=== PATIENT | male | born 1940 | race Caucasian/White ===

== ENCOUNTER → 2016-08-09 | Day surgery (SDC) | payer OTHER ==
[2016-08-03 09:17] VITALS: BMI 34.0
[~2016-08-09] VITALS: Ht 167.6 cm; Wt 95.5 kg
[~2016-08-09] MED LIST: AMOX500C3 PO; ASPI1TAB83 PO; ATOR-22 PO; CLOP1TAB15 PO; DPH/ PO; FERR325T51 PO; FURO-85 PO; GLIP-172 PO; HYDR-3983 PO; LEVO125T5 PO; LIDOCAINE HCL 2% 2 ML VIAL (20MG/ML) ONE; LISI-729 PO; METF-383 PO; METO25TA56 PO; MULTTAB58 PO; NTRGSL/4 UT; PRLSR20 PO; PROPOFOL IV EMULSION 10 MG/ML 20 ML VIAL IV ONE; SITA100T3 PO; SODIUM CHLORIDE 0.9% 500ML 500 ML IV ONE; TAMS0.4C38 PO; ZNF/4 PO
[2016-08-09 08:48] VITALS: Ht 167.6 cm; Wt 95.5 kg
--- NOTE | 2016-08-09 09:24 | Endo History and Physical ---
History & Physical Date of Service: Aug 09, 2016. Chief Complaint: ESOPHAGEAL VARICES Referring Physician: DR SHANIQUE MELO History of Present Illness Hx of cirrhosis/ varices screening. Past Medical History Diabetes, Arthritis, Reflux, High Cholesterol, CABG, Hypertension, Thyroid Disease, [place] Past Surgical History Hx Cardiac Surgery: Yes (HEART CATHS, STENT X1; CABG X4 VESSELS) Hx Internal Defibrillator: No Hx Pacemaker: No Hx Abdominal Surgery: Yes (RUPTURED HERNIA REPAIR) Hx of Implantable Prosthesis: No Hx Post-Op Nausea and Vomiting: No Hx Cancer Surgery: No Hx Thoracic Surgery: No Hx Orthopedic: Yes (BACK SURGERY X4, LT TSA, LT RAFAELA, LT KNEE X3, LT/RT CTR) Hx Urinary Tract Surgery: Yes (KIDNEY STONE BASKET RETRIEVAL X2, KIDNEY STONE REMOVAL) Family History Colon CA Social History Smoking Status: Never Smoker Hx Substance Use: No Hx Alcohol Use: No Allergies Coded Allergies: Iodine (Verified Allergy, Severe, IVP DYE -- ANAPHYLAXIS, 08/03/16) Patient almost . 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 DONE Aspirin 81 Mg Tab 2 Tab PO QAM 04/28/15 Reported Iron Supplement (Ferrous Sulfate) 325 Mg Tab 1 Tab PO BID 04/28/15 Reported Nitrostat (Nitroglycerin) 0.4 Mg Tab 0.4 Mg UT PRN 04/28/15 Reported Levothyroxine Sodium 125 Mcg Tab 1 Tab PO QAM 04/28/15 Reported Tizanidine HCl (Tizanidine) 4 Mg Tab 4 Mg PO QAM 01/27/15 Reported Lopressor (Metoprolol Tartrate) 25 Mg Tab 25 Mg PO BID 01/27/15 Reported Januvia (Sitagliptin Phosphate) 100 Mg Tab 100 Mg PO NOON 01/27/15 Reported Flomax (Tamsulosin Hcl) 0.4 Mg Cap 0.4 Mg PO HS 01/27/15 Reported Glucophage (Metformin Hcl) 850 Mg Tab 850 Mg PO TID 01/27/15 Reported Prilosec (Omeprazole) 20 Mg Capcr 2 Tabs PO QAM 01/27/15 Reported Lasix (Furosemide) 20 Mg Tab 20 Mg PO QAM 01/27/15 Reported Glipizide Xl (Glipizide) 2.5 Mg Tab 2.5 Mg PO NOON 09/06/12 Reported one pill by mouth 30 minues before a meaL Lipitor (Atorvastatin Calcium) 20 Mg Tab 20 Mg PO QPM 09/06/12 Reported Vital Signs Weight (Kilograms): 95.45 Height (Feet): 5 Height (Inches): 6 Date Time Temp Pulse Resp B/P Pulse Ox O2 Delivery O2 Flow Rate FiO2 08/09/16 08:46 36.6 78 24 140/84 97 Room Air Physical Exam General Appearance: no apparent distress Respiratory/Chest: Auscultation: breath sounds normal Cardiovascular: Heart Auscultation: RRR Abdomen: Inspection & Palpation: soft Liver: non-tender Assessment and Plan stable for EGD
--- NOTE | 2016-08-09 09:54 | GI REPORT ---
Procedure Date: 08/09/2016 9:06 AM Procedure: Upper GI endoscopy Indications: Cirrhosis rule out esophageal varices Medicines: See the Anesthesia note for documentation of the administered medications Complications: No immediate complications. Estimated Blood Loss: Estimated blood loss: none. Procedure: Pre-Anesthesia Assessment: - Prior to the procedure, a History and Physical was performed, and patient medications, allergies and sensitivities were reviewed. The patient's tolerance of previous anesthesia was reviewed. - The risks and benefits of the procedure and the sedation options and risks were discussed with the patient. All questions were answered and informed consent was obtained. - Patient identification and proposed procedure were verified prior to the procedure by the physician and the nurse. The procedure was verified in the pre-procedure area. - Pre-procedure physical examination revealed no contraindications to sedation. - After reviewing the risks and benefits, the patient was deemed in satisfactory condition to undergo the procedure. After obtaining informed consent, the endoscope was passed under direct vision. Throughout the procedure, the patient's blood pressure, pulse, and oxygen saturations were monitored continuously. The Scope was introduced through the mouth, and advanced to the third part of duodenum. The upper GI endoscopy was accomplished without difficulty. The patient tolerated the procedure well. Computer issues prevented picture capture. Findings: Grade I varices were found in the lower third of the esophagus. Portal hypertensive gastropathy was found in the gastric antrum. The examined duodenum was normal. The cardia and gastric fundus were normal on retroflexion. Impression: - Grade I esophageal varices. - Portal hypertensive gastropathy. - Normal examined duodenum. - No specimens collected. Recommendation: - Repeat the upper endoscopy in 1 year for surveillance. - Discharge patient to home. John Yanez M.D. John Yanez MD 08/09/2016 9:53:26 AM This report has been signed electronically. Note Initiated On: 08/09/2016 9:06 AM I attest to the content of the Intraoperative Record and orders documented therein, exceptions below
--- NOTE | 2016-08-09 09:55 | Discharge Instructions ---
Endoscopy Patient Instructions Date / Procedure(s) Performed Aug 09, 2016. EGD Allergy Information Coded Allergies: Iodine (Verified Allergy, Severe, IVP DYE -- ANAPHYLAXIS, 08/03/16) Patient almost . Discharge Date / Findings Aug 09, 2016. grade I varices only Medication Instructions Stopped Medication(s): GLUCOPHAGE LAST DOSE 08/06/16 Provider Instructions Activity Restrictions - No exercising or heavy lifting for 24 hours. - Do not drink alcohol the day of the procedure. - Do not drive a car or operate machinery until the day after the procedure. - Do not make any important decisions or sign important papers in 24 hours after the procedure. Following Day: - Return to full activity which may include returning to work/school. Diet Start your diet with liquids and light foods (jello, soup, juice, toast). Then eat your usual diet if not nauseated. Treatment For Common After Affects For mild abdominal pain, bloating, or excessive gas: - Rest - Eat lightly - Lie on right side Follow-Up Information Follow-up with DR SHANIQUE MELO as scheduled Anesthesia Information What You Should Know You have had a procedure that required some medicine to reduce anxiety and discomfort. This treatment is called moderate sedation. After receiving the treatment, you may be sleepy, but you will be able to breathe on your own. The effects of the treatment may last for several hours. Follow these instructions along with Activity/Diet recommendations noted above: * Do NOT do anything where dizziness or clumsiness would be dangerous. * Rest quietly at home today, then you can be up and about tomorrow. * Have a responsible person stay with you the rest of today. * You may have had an I.V. today. If so, you may take the dressing off later today. Recommendations Call your doctor if: * Trouble breathing * Continuous vomiting for more than 24 hours * Temperature above 101 degrees * Severe abdominal pain or bloating * Pain not relieved by pain medicine ordered * There is increased drainage or redness from any incision * A large amount of rectal bleeding greater than 2-3 tablespoons. (If you had a polyp/s removed or have hemorrhoids, a small amount of blood - from the rectum is to be expected.) * You have any unanswered questions or concerns. IN THE EVENT OF A SERIOUS EMERGENCY, GO TO THE NEAREST EMERGENCY ROOM Your discharge instructions were prepared by provider John Yanez. Patient Instructions Signature Page Kenton Ariel Trevizo Patient (or Guardian) Signature/Date: I have read and understand the instructions given to me by my caregivers. Caregiver/RN/Doctor Signature/Date: The above-named patient and/or guardian has received patient instructions on this date. + Original Patient Signature Page (only) stays with chart. Please make copy for patient.
--- NOTE | 2016-08-09 10:10 | Anesthesiology Progress Note ---
Anesthesia Post Op Note Date & Time Aug 09, 2016 at 10:09 Vital Signs Pain Intensity: 0 Vital Signs Past 12 Hours Date Time Temp Pulse Resp B/P Pulse Ox O2 Delivery O2 Flow Rate FiO2 08/09/16 09:47 78 16 92/53 93 Room Air 08/09/16 08:46 36.6 78 24 140/84 97 Room Air Notes Mental Status: alert / awake / arousable, participated in evaluation Pt Amnestic to Procedure: Yes Nausea / Vomiting: adequately controlled Pain: adequately controlled Airway Patency, RR, SpO2: stable & adequate BP & HR: stable & adequate Hydration State: stable & adequate Anesthetic Complications: no major complications apparent
[2016-08-09 10:18] VITALS: BP 118/73; PULSE 76; O2SAT 95
== END | disposition home or self-care (01) ==
LOC: C.GI 08:11
PROVIDERS: ATTEND Internal Medicine Gastroenterology
DX: I85.00 Esophageal varices without bleeding (principal); K74.60 Unspecified cirrhosis of liver; K31.89 Other diseases of stomach and duodenum; E11.9 Type 2 diabetes mellitus without complications; K21.9 Gastro-esophageal reflux disease without esophagitis; E78.00 Pure hypercholesterolemia, unspecified; Z95.5 Presence of coronary angioplasty implant and graft; E07.9 Disorder of thyroid, unspecified; I25.2 Old myocardial infarction; M19.90 Unspecified osteoarthritis, unspecified site; Z87.442 Personal history of urinary calculi; Z80.0 Family history of malignant neoplasm of digestive organs; Z91.041 Radiographic dye allergy status; Z79.82 Long term (current) use of aspirin; Z79.84 Long term (current) use of oral hypoglycemic drugs; I11.9 Hypertensive heart disease without heart failure; D64.9 Anemia, unspecified; N40.0 Benign prostatic hyperplasia without lower urinary tract symptoms

== ENCOUNTER → 2016-08-17 | Outpatient (CLI) | payer OTHER ==
[~2016-08-17] MED LIST changes: -LIDOCAINE HCL 2% 2 ML VIAL (20MG/ML) ONE; -PROPOFOL IV EMULSION 10 MG/ML 20 ML VIAL IV ONE; -SODIUM CHLORIDE 0.9% 500ML 500 ML IV ONE
--- NOTE | 2016-08-17 12:25 | DIAGNOSTIC IMAGING REPORT ---
VIDEO SWALLOW STUDY CLINICAL HISTORY: Choking. Dysphagia. COMPARISON STUDY: No priors. Fluoroscopy time: 2.2 minutes. FINDINGS: Fluoroscopic guidance was provided to the department of speech pathology in performing a video swallow study. The patient consumed barium-impregnated pudding, nectar thick liquids, cracker with paste, and thin barium while the swallowing mechanism was observed in real-time. No penetration or aspiration was seen with any of the sampled textures. Midline sternotomy wires are noted. Spondylotic change is observed in the cervical spine. IMPRESSION: 1. No penetration or aspiration was seen with any of the sampled textures. 2. See dedicated speech pathology report for detailed findings and recommendations. Dictated: 08/17/2016 11:11 AM Transcribed: 08/17/2016 12:24 PM [facility] Electronically signed by: Keith Dolan M.D. 08/17/2016 12:27 PM Dictated Date/Time: 08/17/2016 11:11 AM
--- NOTE | 2016-08-17 13:37 | SWALLOWING EVALUATION ---
HISTORY: This 75 year old man was referred for a video swallow study at [facility] in order to rule out aspiration and identify the safest consistencies for optimal oral intake. He reports episodes of severe coughing where he will turn bright red/purple. He states this happens randomly and not necessarily while he is eating. He feels as though his throat becomes tight as if it is a spasm, and during that time he cannot breathe. PMH is significant for: Diabetes type 2, GERD, CABG, [place], HTN, and cirrhosis. He participated in an EGD on 08/09/16 which revealed varices and portal hypertensive gastropathy. Current diet is regular. PROCEDURE: The patient was seen in the Radiology Department of [facility] for the VFSS. Cursory examination of the oral cavity revealed upper dentures that fit well, and natural lowers in good condition. Movement of the articulators was wnl. The patient stood for the procedure and was viewed in both the Anterior-Posterior (A-P) and Lateral planes. Volitional phonation exercises completed in the A-P plane revealed bilateral vocal fold movement and vocal intensity was judged to be wnl. In the lateral plane, the patient was given the following boluses: 1 tsp. thin liquid barium x 2, single swallow thin liquid barium self-presented from a cup x2, serial swallows of thin liquid barium self-presented with a straw, 1 tsp. nectar-thick liquid barium, single swallow nectar-thick liquid barium self-presented from a cup, 1 tsp. barium pudding, and 1 club cracker coated with barium pudding. RESULTS: Oral Stage: Lip closure was adequate. The patient was able to maintain a cohesive liquid bolus upon command during the liquid bolus hold task. Mastication was timely and efficient. Lingual motion for bolus transport was mildly slow. There was retention lining the tongue after the swallow. The initiation of the pharyngeal swallow was delayed, and triggered when the bolus head reached the pyriforms. Pharyngeal Stage: Soft palate elevation was complete. Laryngeal elevation revealed complete superior movement of the thyroid cartilage with complete approximation of the arytenoids to the epiglottic base. Anterior hyoid excursion and epiglottic deflection were complete. Laryngeal vestibular closure was complete with no air or contrast located in the vestibule at the height of the swallow. The pharyngeal stripping wave was present and complete. Pharyngeal contraction was also complete. The opening to the pharyngoesophageal segment (PES) was complete with distention and duration of the opening, no bolus flow obstruction evidenced. Tongue base retraction was mildly reduced, with a trace column of contrast being located between the tongue base and pharyngeal wall during the swallow. There was pharyngeal retention located along the tongue base and valleculae after the swallow. There was no evidence of laryngeal penetration or aspiration during this study. The patient presented with good sensation to the pharyngeal retention and independently generated a second swallow that was effective to clear. Esophageal stage: There was complete esophageal clearance. Cervical osteophytes were noted in the upper esophagus that did not significant impact bolus flow. SUMMARY/RECOMMENDATIONS: This patient presents with normal layne-pharyngeal swallowing mechanics. The following is recommended: 1. Regular consistency diet 2. Aspiration precautions, Straws OK. Fully upright for meals. 3. Consider participation in an ENT consultation due to patient c/o suspected laryngospasms. Results and recommendations were given to the patient and his spouse (with patient's permission) immediately following the study with verbal understanding. They reported they have not yet had an evaluation by an communications director but are receptive to this as the patient is describing suspected laryngospasms. Thank you for referral of this patient. Please contact me at if any additional information is needed.
== END | disposition home or self-care (01) ==
LOC: C.RAD 10:09
PROVIDERS: ATTEND Family Medicine
DX: R13.19 Other dysphagia (principal); T17.308A Unspecified foreign body in larynx causing other injury, initial encounter; X58.XXXA Exposure to other specified factors, initial encounter

== ENCOUNTER 2023-03-01 11:47 | Inpatient (IN) ==
[2023-03-01] MEDS ORDERED: CALCIUM GLUCONATE 10% 1,000 MG in SODIUM CHLOR 0.9% MINI-B 50 ML IV ONE (12:25)
[2023-03-01] MEDS ORDERED: STAT IV/IM STA (12:25)
[2023-03-01 12:31] LABS: Hemoglobin 8.4 g/dl (14.0-18.0); Mean Corpuscular Hemoglobin 29.2 pg (25.0-34.0); Mean Corpuscular Hgb Conc 32.3 g/dL (32.0-36.0); Mean Corpuscular Volume 90.3 fL (80.0-100.0); Mean Platelet Volume 9.5 fL (9.4-12.4); Platelet Count 334 K/uL (130-400); RDW Coefficient of Variation 17.9 % (11.5-14.5); RDW Standard Deviation 58.5 fL (36.4-46.3); Red Blood Count 2.88 M/uL (4.70-6.10); White Blood Count 9.49 K/ul (4.8-10.8)
--- NOTE | 2023-03-01 12:48 | Emergency Department Note ---
Impression & Plan Acute hyperkalemia, Cirrhosis, Acute kidney failure ED Provider Note NAME: REECE CHAVIS AGE: 82 SEX: M : 1940 ARRIVES VIA: Walk-In INFORMANT: Patient, ED PROVIDER(S): Shawna Wadsworth MD CHIEF COMPLAINT: Abnormal labs HPI: This is a 82-year-old male history of lymphoma, diabetes, cirrhosis of the liver presenting for abnormal blood work in the outpatient setting. Patient reportedly had bladder and yesterday which showed a hemoglobin of 7.6, creatinine of 2.6, potassium is 6.5 and a sodium of 123. He was sent in for this as well as his chronic symptoms of weakness, abdominal pain. states that patient has no appetite is not been eating more than 100 etta/day. He notes that he has been swelling up in his abdomen as well as lower extremities bilaterally. He is unsure why he feels unwell. He is not on active chemotherapy for his lymphoma. He states he received a antibody infusion about 1 year ago for his lymphoma. ROS: See above HPI for pertinent positives & negatives. A total of 10 systems reviewed and were otherwise negative. PAST MEDICAL HISTORY: See Below PAST SURGICAL HISTORY: See Below FAMILY HISTORY: See Below SOCIAL HISTORY: See Below HOME MEDICATIONS: See Below ALLERGIES: See Below VITALS: See Below PHYSICAL EXAMINATION: General: Chronically ill-appearing, uncomfortable, fatigued Head: Normocephalic and atraumatic Eyes: Normal inspection, extraocular muscles intact Ear, nose, throat: Normal external exam Neck: Normal range of motion Respiratory: lungs clear to auscultation bilaterally Cardiovascular: Regular rate/rhythm, no murmur GI: Distended, no acute tenderness to palpation Extremities: nontender, moves all extremities Neuro: The patient awake and alert, appropriately conversive, no focal deficits, symmetric faces Skin: Warm, dry, and intact MEDICAL DECISION MAKING: This is an 82-year-old male with history of lymphoma, diabetes and cirrhosis presenting for abnormal blood work. External records reviewed, lab work done on 02/28, 1 day ago, by patient's primary care physician does not did reveal potassium is 6.5, sodium 123, CO2 of 17, anion gap of 13, creatinine of 2.6, BUN of 44 and hemoglobin of 7.6. - Chest Xray independently interpreted by me showing cardiomegaly, no pneumothorax, focal opacity. We will give calcium gluconate for hyperkalemia at this time ECG independently interpreted by me with sinus tachycardia, rate of 107, left axis deviation, normal MO, normal QRS, normal QTc, no ST segment elevations consistent with STEMI criteria - Discussed case with Dr. Valencia, she requested a diagnostic paracentesis. This is appropriate. - Consent obtained/signed for diagnostic paracentesis. Please see end of note for procedure note. Triage Nursing notes reviewed. Prior medical records reviewed Vital Signs: reviewed and remarkable for no significant abnormalities Differential diagnosis: Hepatorenal syndrome, kidney failure, hyperkalemia, sepsis, ER treatment provided: See below Diagnostics interpreted by me: ECG: ECG independently interpreted by me with sinus, rate of 110, left axis deviation, normal MO, normal QRS, normal QTc, no ST segment elevations consistent with STEMI criteria Cardiac Monitoring: An order was placed for continuous cardiac monitoring. The monitor shows a rate of 110 with sinus rhythm Laboratory studies: As stated above and show below. Imaging studies: See below. Radiographic imaging was reviewed by myself Consultation(s): None Past Med/Surg History Medical History (Updated 03/01/23 @ 19:17 by Shawna Wadsworth MD) Chronic systolic heart failure PAF (paroxysmal atrial fibrillation) Marginal zone lymphoma dx 12/2020, no chemo or radiation, only gets infusion of antibodies and plasma, and iron infusion weekly, [facility] oncology Congestive heart failure Heart [facility] 1996, [facility], had cath no stents>pursued medication route vs. bypass route 05/2020, [facility]. heart cath, no stents at that time. "weak muscle on the bottom right side" follows with Dr Lewis ([facility] Cardiology) Osteoarthritis Chronic back pain Kidney stones hx Cirrhosis Hypothyroidism Diabetes mellitus, type 2 On anticoagulant therapy eliquis daily>as of 12/2022, medication on hold Hypertension Hyperlipidemia Myocardial Infarction x3--1988/1996/--follows with Júnior Lewis NP @ [facility] 1996, [facility], had cath no stents>pursued medication route vs. bypass route 2003-[facility] for cardiac cath, no stents 2005[facility] for cardiac [facility], x2 stents Surgical History History of surgical removal of ganglion cyst left hand Status post trigger finger release x2--1 on each hand History of carpal tunnel release of both wrists History of thoracic spinal fusion x2 History of lumbar spinal fusion x2 History of fusion of cervical spine normal ROM History of left shoulder replacement History of total left hip replacement History of arthroscopy of left knee x3 History of nephrolithotomy with removal of calculi x2 History of cystoscopy x2 Hx of transurethral resection of prostate Status post biopsy of kidney normal History of right inguinal hernia repair History of colonoscopy History of esophagogastroduodenoscopy (EGD) History of cholecystectomy History of tooth extraction all top teeth removed History of wisdom tooth extraction History of heart artery stent x2 stents placed 2005 @ [facility] History of cardiac cath 1996, no stents; x2; 2003 (no stents); 2005-2 stents; 05/2020-no stents>all done [facility] History of quadruple bypass 2003 @ [facility], "felt off" had cath>had bypass Family History Mother Family history of diabetes mellitus Father Family history of diabetes mellitus Brother Family history of diabetes mellitus Family hx of colon cancer Family hx colonic polyps Sister Family history of diabetes mellitus Brother Family history of diabetes mellitus Family hx of colon cancer Family hx colonic polyps Brother Family history of diabetes mellitus Sister Family history of diabetes mellitus Sister Family history of diabetes mellitus Sister Family history of diabetes mellitus Grandfather (Maternal) Family history of diabetes mellitus Grandfather (Paternal) Family history of diabetes mellitus Grandmother (Paternal) Family history of diabetes mellitus Grandmother (Maternal) Family history of diabetes mellitus Other No family history of adverse response to anesthesia Social History Smoking Status: Never smoker Second Hand Exposure: No; Do You Dip or Chew Tobacco: No; Hx Alcohol Use: No Hx Substance Use: No Preferred Language: Tuvaluan Communication Ability: Effective Office Assistance Required: No Beliefs That Will Affect Care: None Current Living Situation: Spouse Other Information That Helps Us Care for You: No Feels Safe at Home: Yes Safety Concerns: Feels Safe At This Time Assistive Devices: Cane and Denture - Upper Allergies Allergies Allergy/AdvReac Type Severity Reaction Status Date / Time Iodinated Contrast Media Allergy Severe IVP DYE = Verified 03/01/23 15:34 ANAPHYLAXIS lisinopril AdvReac Cough Verified 03/01/23 15:34 Home Meds Home Medications Medication Instructions Recorded Confirmed acetaminophen 325 mg tablet 325 mg PO Q6H PRN Pain 02/02/19 03/01/23 (Tylenol) amoxicillin 500 mg tablet 2,000 mg PO UD PRN prior to dental 02/02/19 03/01/23 procedures apixaban 5 mg tablet (Eliquis) 2.5 mg PO BID 02/02/19 03/01/23 aspirin 81 mg tablet,delayed 81 mg PO QAM 02/02/19 03/01/23 release (Sharita Low Dose Aspirin) atorvastatin 80 mg tablet 80 mg PO QPM 02/02/19 03/01/23 diphenoxylate-atropine 2.5 1 tab PO QID PRN Diarrhea 02/02/19 03/01/23 mg-0.025 mg tablet (Lomotil) ferrous sulfate 325 mg (65 mg 325 mg PO BID 02/02/19 03/01/23 iron) tablet,delayed release furosemide 20 mg tablet 20 mg PO QAM 02/02/19 03/01/23 hydrocodone 7.5 mg-acetaminophen 1 tab PO Q8H PRN Pain 02/02/19 03/01/23 325 mg tablet magnesium oxide 800 mg PO BID 02/02/19 03/01/23 metformin 850 mg tablet 850 mg PO BID 02/02/19 03/01/23 metoprolol succinate 100 mg 100 mg PO QAM 02/02/19 03/01/23 tablet,extended release 24 hr hbscisdg-baztdgwm-lxvhs acid 400 1 tab PO QPM 02/02/19 03/01/23 mcg-vit K 20 mcg-lycop 300 mcg tablet (One-A-Day Men's Multivitamin) nitroglycerin 0.4 mg sublingual 0.4 mg sublingual UD PRN Angina 02/02/19 03/01/23 tablet tamsulosin 0.4 mg capsule 0.4 mg PO HS 02/02/19 03/01/23 triamcinolone acetonide 0.1 % 1 applic topical BID PRN Rash 02/02/19 03/01/23 topical cream famotidine 20 mg tablet (Pepcid) 20 mg PO BID 09/23/20 03/01/23 ondansetron 8 mg disintegrating 8 mg PO Q12H PRN Nausea 02/19/21 03/01/23 tablet isosorbide mononitrate 60 mg 60 mg PO QAM 11/25/22 03/01/23 tablet,extended release 24 hr albuterol sulfate 90 mcg/actuation 2 puff inhalation TID 03/01/23 03/01/23 aerosol inhaler (Proventil HFA) glipizide 10 mg tablet, extended 20 mg PO DAILY 03/01/23 03/01/23 release 24 hr levothyroxine 200 mcg tablet 200 mcg PO QAM 03/01/23 03/01/23 losartan 25 mg tablet 25 mg PO DAILY 03/01/23 03/01/23 metoclopramide HCl 10 mg tablet 10 mg PO DAILY 03/01/23 03/01/23 pantoprazole 40 mg tablet,delayed 40 mg PO QAM 03/01/23 03/01/23 release semaglutide 1 mg/dose (4 mg/3 mL) 1 mg subcut .Q WED 03/01/23 03/01/23 subcutaneous pen injector (Ozempic) spironolactone 50 mg tablet 50 mg PO QAM 03/01/23 03/01/23 torsemide 20 mg tablet 40 mg PO DAILY 03/01/23 03/01/23 Results & Data (ED) Vital Signs Vital Signs - 24 hr 03/01/23 11:52 03/01/23 12:21 03/01/23 12:23 Temperature 36.5 C Temperature Source Temporal Artery Scan Pulse Rate 108 H 0 L Pulse Rate from SpO2 Sensor Pulse Rhythm Regular Respiratory Rate 18 14 Respiratory Effort / Characteristics Non-Labored Spontaneous Respiratory Depth Normal Blood Pressure 91/61 L 108/72 Blood Pressure Mean 71 90 Pulse Oximetry 97 Oxygen Delivery Method Room Air Sepsis Recent Fever Within 48 Hours No Sepsis New/Unexplained Change in Mental Status No Sepsis Action Taken by Nursing No Action Required 03/01/23 12:23 03/01/23 12:30 03/01/23 12:30 Temperature Temperature Source Pulse Rate 101 H 105 H Pulse Rate from SpO2 Sensor 101 H Pulse Rhythm Respiratory Rate 18 Respiratory Effort / Characteristics Respiratory Depth Blood Pressure 107/70 Blood Pressure Mean 85 Pulse Oximetry 96 Oxygen Delivery Method Sepsis Recent Fever Within 48 Hours Sepsis New/Unexplained Change in Mental Status Sepsis Action Taken by Nursing 03/01/23 12:30 03/01/23 12:45 03/01/23 13:00 Temperature Temperature Source Pulse Rate 104 H 103 H Pulse Rate from SpO2 Sensor 103 H 103 H Pulse Rhythm Respiratory Rate 18 17 Respiratory Effort / Characteristics Respiratory Depth Blood Pressure 104/72 Blood Pressure Mean 78 Pulse Oximetry 97 96 Oxygen Delivery Method Sepsis Recent Fever Within 48 Hours Sepsis New/Unexplained Change in Mental Status Sepsis Action Taken by Nursing 03/01/23 13:00 03/01/23 13:15 03/01/23 13:30 Temperature Temperature Source Pulse Rate 100 H 102 H 105 H Pulse Rate from SpO2 Sensor 106 H 103 H 102 H Pulse Rhythm Respiratory Rate 16 20 21 Respiratory Effort / Characteristics Respiratory Depth Blood Pressure Blood Pressure Mean Pulse Oximetry 96 94 90 Oxygen Delivery Method Sepsis Recent Fever Within 48 Hours Sepsis New/Unexplained Change in Mental Status Sepsis Action Taken by Nursing 03/01/23 13:30 03/01/23 13:45 03/01/23 14:00 Temperature Temperature Source Pulse Rate 99 H 96 H Pulse Rate from SpO2 Sensor 98 H 96 H Pulse Rhythm Respiratory Rate 14 14 Respiratory Effort / Characteristics Respiratory Depth Blood Pressure 88/65 L Blood Pressure Mean 67 Pulse Oximetry 91 100 Oxygen Delivery Method Sepsis Recent Fever Within 48 Hours Sepsis New/Unexplained Change in Mental Status Sepsis Action Taken by Nursing 03/01/23 14:01 03/01/23 14:01 03/01/23 14:15 Temperature Temperature Source Pulse Rate 96 H 103 H Pulse Rate from SpO2 Sensor 97 H 98 H Pulse Rhythm Respiratory Rate 16 19 Respiratory Effort / Characteristics Respiratory Depth Blood Pressure 97/66 L Blood Pressure Mean 77 Pulse Oximetry 99 97 Oxygen Delivery Method Sepsis Recent Fever Within 48 Hours Sepsis New/Unexplained Change in Mental Status Sepsis Action Taken by Nursing 03/01/23 14:30 03/01/23 14:30 03/01/23 14:45 Temperature Temperature Source Pulse Rate 103 H 105 H Pulse Rate from SpO2 Sensor 101 H 105 H Pulse Rhythm Respiratory Rate 16 18 Respiratory Effort / Characteristics Respiratory Depth Blood Pressure 86/63 L Blood Pressure Mean 77 Pulse Oximetry 94 95 Oxygen Delivery Method Sepsis Recent Fever Within 48 Hours Sepsis New/Unexplained Change in Mental Status Sepsis Action Taken by Nursing 03/01/23 15:00 03/01/23 15:00 03/01/23 15:15 Temperature Temperature Source Pulse Rate 104 H 95 H Pulse Rate from SpO2 Sensor 104 H 89 Pulse Rhythm Respiratory Rate 20 16 Respiratory Effort / Characteristics Respiratory Depth Blood Pressure 88/65 L Blood Pressure Mean 73 Pulse Oximetry 98 97 Oxygen Delivery Method Sepsis Recent Fever Within 48 Hours Sepsis New/Unexplained Change in Mental Status Sepsis Action Taken by Nursing Laboratory Data 03/01/23 12:03 03/01/23 15:54 Lab Results 03/01/23 Range/Units 12:03 WBC 9.49 (4.8-10.8) K/ul RBC 2.88 L (4.70-6.10) M/uL Hgb 8.4 L (14.0-18.0) g/dl Hct 26.0 L (42.0-52.0) % MCV 90.3 (80.0-100.0) fL MCH 29.2 (25.0-34.0) pg MCHC 32.3 (32.0-36.0) g/dL RDW Std Deviation 58.5 H (36.4-46.3) fL RDW Coeff of Jaqueline 17.9 H (11.5-14.5) % Plt Count 334 (130-400) K/uL MPV 9.5 (9.4-12.4) fL PT 13.7 H (9.0-12.0) Seconds INR 1.3 H (0.9-1.1) APTT 31.8 H (21.0-31.0) Seconds PTT Ratio 1.1 Sodium 122 L (136-145) mmol/L Potassium 6.4 H* (3.5-5.1) mmol/L Chloride 94 L (98-107) mmol/L Carbon Dioxide 18 L (21-32) mmol/L Anion Gap 10 (3-11) BUN 46 H (6-23) mg/dl Creatinine 2.40 H (0.6-1.4) mg/dl Est Cr Clr Drug Dosing Not Reportable Est GFR ( Amer) 27.9 ml/min Est GFR (Non-Af Amer) 24.0 ml/min BUN/Creatinine Ratio 19.2 (10-20) Glucose 157 H (70-99(Fasting)) mg/dl Calcium 9.1 (8.6-10.3) mg/dl Total Bilirubin 0.5 (0.2-1.0) mg/dl AST 19 (13-39) U/L ALT 12 (7-52) U/L Alkaline Phosphatase 89 (34-104) U/L Troponin I High Sens 23.9 H (0-20) pg/ml Total Protein 6.2 (6.0-8.3) gm/dl Albumin 3.4 (3.4-5.0) gm/dl Globulin 2.8 (2.5-4.0) gm/dl Albumin/Globulin Ratio 1.2 (0.9-2) Blood Type O Positive Antibody Screen NEGATIVE Administered Medications Albumin Human (Albumin 25%) 25 gm in 100 mls @ 50 mls/hr IV Q8H ANGIE Stop: 03/03/23 12:29 Last Admin: 03/01/23 18:33 Dose: 50 mls/hr Documented By: KAYLYNN Sodium Zirconium Cyclosilicate (Sodium Zirconium Cyclosilicate 10 Gm Packet) 10 gm PO TID ANGIE Stop: 03/03/23 09:01 Last Admin: 03/01/23 13:09 Dose: 10 gm Documented By: JUDY Discontinued Medications Albuterol (Albuterol 0.5% Neb Soln 2.5 Mg/0.5 Ml Vial) 10 mg NEB NOW STA Stop: 03/01/23 12:58 Last Admin: 03/01/23 13:42 Dose: 10 mg Documented By: FRANC Dextrose (Dextrose 50% 50 Ml Syringe) 50 ml IV NOW STA Stop: 03/01/23 12:58 Last Admin: 03/01/23 13:09 Dose: 50 ml Documented By: JUDY Furosemide (Furosemide Inj 20 Mg/2 Ml Vial) 20 mg IV ONE ONE Stop: 03/01/23 17:39 Last Admin: 03/01/23 18:33 Dose: 20 mg Documented By: KAYLYNN Calcium Gluconate 1,000 mg/ (Sodium Chloride) 60 mls @ 240 mls/hr IV NOW ONE Stop: 03/01/23 12:39 Last Infusion: 03/01/23 13:15 Dose: Infused Documented By: Admin: 03/01/23 13:00 Dose: 240 mls/hr Documented By: JUDY Insulin Human Regular 10 units (/ Syringe) 9.9 mls @ 3 mls/sec IV ONE STA Stop: 03/01/23 12:58 Last Admin: 03/01/23 13:09 Dose: 3 mls/sec Documented By: JUDY Co-signed By: AM Insulin Human Regular (Novolin-R Insulin Per Unit Charge) Confirm Administered Dose 10 units .ROUTE .STK-MED ONE Stop: 03/01/23 13:08 Last Admin: 03/01/23 15:08 Dose: Not Given Documented By: DLN Imaging Data Radiologist's Impression: Chest X-Ray 03/01/23 12:59 XR chest 1V portable HISTORY: 82 years-old Male CHF acute shortness of breath COMPARISON: 01/27/2015 TECHNIQUE: AP view of the chest FINDINGS: Cardiac silhouette is enlarged. Median sternotomy. Mild subsegmental bibasilar atelectasis versus scarring. No pneumothorax, large pleural effusion or pulmonary edema. Mild blunting of the costophrenic angles. Left shoulder arthroplasty. Bones appear grossly intact. IMPRESSION: Cardiomegaly with mild bibasilar atelectasis and possible trace right pleural effusion. ACT 112: Negative or not required by law. The above report was generated using voice recognition software. It may contain grammatical, syntax or spelling errors. Electronically signed by: Tomasz Billingsley M.D. 03/01/2023 1:54 PM Discharge Plan Visit Data Chief Complaint: Referred by Doctor Stated Complaint: BLOOD INFUSION ED Provider: Shawna Wadsworth Discharge Problem: Acute hyperkalemia, Cirrhosis, Acute kidney failure Patient Disposition: Admitted As Inpatient Discharge Instructions Interventions: ED Discharge Assessment Last Done: 03/01/23 17:39 Procedures Paracentesis Time Out Performed: Yes Indication: possible spontaneous bacterial peritonitis Procedure: diagnostic paracentesis Location: RLQ Bedside Ultrasound Used: yes, real-time guidance Preparation: sterile prep and drape Amount of fluid obtained (mL): 60 Fluid: clear Post Procedure Exam: awake, alert Patient Tolerated Procedure: well Complications: none
[2023-03-01 12:53] LABS: INR 1.3 (0.9-1.1); Partial Thromboplastin Ratio 1.1; Partial Thromboplastin Time 31.8 Seconds (21.0-31.0); Prothrombin Time 13.7 Seconds (9.0-12.0)
[2023-03-01 12:57] LABS: Alanine Aminotransferase 12 U/L (7-52); Albumin Globulin Ratio 1.2 (0.9-2); Albumin Level 3.4 gm/dl (3.4-5.0); Alkaline Phosphatase 89 U/L (34-104); Anion Gap 10 (3-11); Aspartate Aminotransferase 19 U/L (13-39); BUN Creatinine Ratio 19.2 (10-20); Bilirubin,Total 0.5 mg/dl (0.2-1.0); Blood Urea Nitrogen 46 mg/dl (6-23); Calcium 9.1 mg/dl (8.6-10.3); Carbon Dioxide 18 mmol/L (21-32); Chloride 94 mmol/L (98-107); Est GFR (African American) 27.9 ml/min; Globulin 2.8 gm/dl (2.5-4.0); Glucose 157 mg/dl (70-99(Fasting)); Potassium 6.4 mmol/L (3.5-5.1); Sodium 122 mmol/L (136-145); Total Protein 6.2 gm/dl (6.0-8.3)
[2023-03-01] MEDS ORDERED: INSULIN HUMAN REGULAR PER UNIT 10 UNITS in SYRINGE 9.9 ML IV STA (12:57)
[2023-03-01] MEDS ORDERED: ALBUTEROL 0.5% NEB SOLN 2.5 MG/0.5 ML VIAL NEB STA (12:57)
[2023-03-01] MEDS ORDERED: DEXTROSE 50% 50 ML SYRINGE IV STA (12:57)
[2023-03-01] MEDS ORDERED: NovoLIN-R INSULIN PER UNIT CHARGE ONE (13:07)
[2023-03-01] MEDS: SODIUM ZIRCONIUM CYCLOSILICATE 10 GM PACKET PO SCH ×3 (13:09→23:17)
--- NOTE | 2023-03-01 13:10 | Electrocardiogram Report ---
Test Reason : Blood Pressure : / mmHG Vent. Rate : 107 BPM Atrial Rate : 107 BPM P-R Int : 184 ms QRS Dur : 090 ms QT Int : 338 ms P-R-T Axes : 061 -38 107 degrees QTc Int : 451 ms Sinus tachycardia Left axis deviation Inferior infarct , age undetermined Anterolateral infarct , age undetermined Abnormal ECG When compared with ECG of 25-MAY-2005 14:12, Criteria for Inferior infarct now present Criteria for Anterolateral infarct now present Confirmed by Ari Howell ([id number]) on 03/01/2023 1:09:49 PM Referred By: Herb Acevedo Confirmed By:Ari Howell
--- NOTE | 2023-03-01 13:56 | XRay Report ---
XR chest 1V portable HISTORY: 82 years-old Male CHF acute shortness of breath COMPARISON: 01/27/2015 TECHNIQUE: AP view of the chest FINDINGS: Cardiac silhouette is enlarged. Median sternotomy. Mild subsegmental bibasilar atelectasis versus sca rring. No pneumothorax, large pleural effusion or pulmonary edema. Mild blunting of the costophrenic angles. Left shoulder arthroplasty. Bones appear grossly intact. IMPRESSION: Cardiomegaly with mild bibasilar atelectasis and possible trace right pleural effusion. ACT 112: Negative or not required by law. The above report was generated using voice recognition software. It may contain grammatical, syntax o r spelling errors. Electronically signed by: Tomasz Billingsley M.D. 03/01/2023 1:54 PM
[2023-03-01 14:42] LABS: Troponin I High Sensitivity 23.9 pg/ml (0-20)
--- NOTE | 2023-03-01 15:01 | History & Physical Report ---
Date of Service March 01, 2023 Assessment & Plan (1) Acute renal failure: Plan: Baseline creat 1.6, now 2.6. Multifactorial but likely due to low effective arterial volume in setting of worsening ascites and poor PO intake. Plan as noted below. (2) Hyperkalemia: Plan: Patient runs around 5 per outpatient record review. After insulin/D50/Ca/Lokelma, repeat K down to 5.6. Plan as noted below. Cont Lokelma x 6 total doses as ordered. (3) Hyponatremia: Plan: Multifactorial including poor PO intake, hypervolemia 2/2 decompensated cirrhosis, recent diuretic therapy. See plan below. (4) Alcoholic cirrhosis of liver with ascites: Plan: SAAG >1.1 indicating portal HTN is the likely cause of the ascites and there are no clear acute heart failure symptoms. CXR reveals clear lungs. No evidence of heart failure decompensation. Patient has known h/o alcoholic liver cirrhosis. Ascites has been worsening and is now uncomfortable. Patient also report vomiting some medications, and is unsure of how much lasix he is taking which was just switched to torsemide 40mg by his PCP (he hasn't yet started this). He appears to have a combination of hypervolemia from liver disease with low intravascular volume. A protuberant abdomen with ascites is present. Per ER doc who performed diagnostic paracentesis, there is a significant volume here and we will discuss with GI the benefit of a therapeutic paracentesis during this admission in addition to optimizing his diuretic therapy. Currently, with his hyperkalemia--likely a combination of potassium supplementation with juices, acute renal failure, spironolactone and losartan--would prefer to hold spironolactone until potassium has reliably stabilized. Will start with Lasix/albumin this evening and encourage oral PO intake as he can tolerate. Will monitor sodium response and not allow an increase >130 goal by tomorrow. Nephrology consulted given multiple organ systems involved. SBP was ruled out with diagnostic paracentesis today in the ER. Will obtain US liver with doppler to rule out PVT. Appreciate GI recommendations. Cont low sodium diet. (5) Chronic systolic heart failure: Plan: Chronic, compensated. Losartan and spironolactone held in setting of EDMAR and hyperkalemia. Consider addition of SGLT2i at time of discharge if no indications and patient can afford it. 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 While admitted, cont basal/bolus insulin. (8) Hypothyroidism: Plan: Recent TSH on 02/22 is 14.90. Recently increased Synthroid to 225mcg by PCP. Cont current dose. PCP to adjust as outpatient. (9) PAF (paroxysmal atrial fibrillation): Plan: on lifelong AC, no bleeding issues reported. Cont apixaban at reduced dose. Notably, he didn't have enough medication and was only taking 2.5 of apixaban once daily. (10) Malnutrition: Plan: poor PO intake for 3 months. Nutrition consulted. Apixaban Full Code as confirmed with patient on admission. Dispo-to telemetry I spent a total of75 minutes coordinating, documenting, and providing care for this patient excluding time spent in the performance of separately billed services Clara Valencia DO [facility] Hospitalist History of Present Illness Chief Complaint: electrolyte abnormality Primary Care Provider: Juan J Garcia MD 82 yo M presents with elevated K 6.4, acute renal failure with a creatinine of 2.6 and a low sodium of 122. These abnormal labs were found from screening bloodwork ordered by his statistical technician who he sees for ongoing iron deficiency and marginal zone lymphoma. He has a history of liver cirrhosis with recent outpatient notes reporting increased abdominal fullness and bloating. He has poor PO intake per his , worsening over the last 2-3 months. He also has a history of severe multivessel CAD s/p CABG in 2013, DEVIN placed in 2015, repeat chest pain with repeat cath in 2017 and no intervention based on poor targets for PCI. Echo in 2020 revealed EF 20-30% with severe global HK of the left ventricle. Repeat echo in October 2022 revealed EF 30-34% with no changes from prior other than a new trivial pericardial effusion. Frequently vomiting and diarrhea. He is triggered to vomit after two bites of food. Frequently pills will come up with this. Keeping down Glucerna and boost, V8 juice and orange juice. Notes that he uses V8 and OJ, both high in potassium, to treat himself when glucometer goes off four times per night alerting him to low blood sugar. Weakness causing difficulty ambulating. No SOB, denies dynspnea with exertion, reports having no energy, no orthopnea, unable to sleep well. Takes naps during the day. Watches TV a lot during the day, very sedentary behavior described. Abdominal pain present in lower abdomen-stabbing pain reported. significant cold intolerance noted, but no fever. Thyroid medication has been increased over the past few months and TSH still 14. Per , new dose was recently started. RE: MZL, cannot give chemo or XRT at this point secondary to his comorbidities. Not current on treatment and patient/ are unsure of his prognosis or remission status. Saw Dr. Cunningham from GI for his liver last May, he had no ascites at that time, progression has just been in the past two months. Lower extremity swelling also reported x two months. Allergies Allergy/AdvReac Type Severity Reaction Status Date / Time Iodinated Contrast Media Allergy Severe IVP DYE = Verified 03/01/23 15:34 ANAPHYLAXIS lisinopril AdvReac Cough Verified 03/01/23 15:34 Home Medications Medication Instructions Recorded Confirmed Type acetaminophen 325 mg tablet 325 mg PO Q6H PRN Pain 02/02/19 03/01/23 History (Tylenol) amoxicillin 500 mg tablet 2,000 mg PO UD PRN prior to dental 02/02/19 03/01/23 History procedures apixaban 5 mg tablet (Eliquis) 2.5 mg PO BID 02/02/19 03/01/23 History aspirin 81 mg tablet,delayed 81 mg PO QAM 02/02/19 03/01/23 History release (Sharita Low Dose Aspirin) atorvastatin 80 mg tablet 80 mg PO QPM 02/02/19 03/01/23 History diphenoxylate-atropine 2.5 1 tab PO QID PRN Diarrhea 02/02/19 03/01/23 History mg-0.025 mg tablet (Lomotil) ferrous sulfate 325 mg (65 mg 325 mg PO BID 02/02/19 03/01/23 History iron) tablet,delayed release furosemide 20 mg tablet 20 mg PO QAM 02/02/19 03/01/23 History hydrocodone 7.5 mg-acetaminophen 1 tab PO Q8H PRN Pain 02/02/19 03/01/23 History 325 mg tablet magnesium oxide 800 mg PO BID 02/02/19 03/01/23 History metformin 850 mg tablet 850 mg PO BID 02/02/19 03/01/23 History metoprolol succinate 100 mg 100 mg PO QAM 02/02/19 03/01/23 History tablet,extended release 24 hr xbqiynqc-zxqclqfo-wfjgn acid 400 1 tab PO QPM 02/02/19 03/01/23 History mcg-vit K 20 mcg-lycop 300 mcg tablet (One-A-Day Men's Multivitamin) nitroglycerin 0.4 mg sublingual 0.4 mg sublingual UD PRN Angina 02/02/19 03/01/23 History tablet tamsulosin 0.4 mg capsule 0.4 mg PO HS 02/02/19 03/01/23 History triamcinolone acetonide 0.1 % 1 applic topical BID PRN Rash 02/02/19 03/01/23 History topical cream famotidine 20 mg tablet (Pepcid) 20 mg PO BID 09/23/20 03/01/23 History ondansetron 8 mg disintegrating 8 mg PO Q12H PRN Nausea 02/19/21 03/01/23 History tablet isosorbide mononitrate 60 mg 60 mg PO QAM 11/25/22 03/01/23 History tablet,extended release 24 hr albuterol sulfate 90 mcg/actuation 2 puff inhalation TID 03/01/23 03/01/23 History aerosol inhaler (Proventil HFA) glipizide 10 mg tablet, extended 20 mg PO DAILY 03/01/23 03/01/23 History release 24 hr levothyroxine 200 mcg tablet 200 mcg PO QAM 03/01/23 03/01/23 History levothyroxine 25 mcg tablet 25 mcg PO DAILYBB 03/01/23 03/01/23 History losartan 25 mg tablet 25 mg PO DAILY 03/01/23 03/01/23 History metoclopramide HCl 10 mg tablet 10 mg PO DAILY 03/01/23 03/01/23 History pantoprazole 40 mg tablet,delayed 40 mg PO QAM 03/01/23 03/01/23 History release semaglutide 1 mg/dose (4 mg/3 mL) 1 mg subcut .Q WED 03/01/23 03/01/23 History subcutaneous pen injector (Ozempic) spironolactone 50 mg tablet 50 mg PO QAM 03/01/23 03/01/23 History torsemide 20 mg tablet 40 mg PO DAILY 03/01/23 03/01/23 History Past Med/Surg History Medical History (Updated 03/01/23 @ 22:21 by Clara Valencia, DO) Chronic systolic heart failure PAF (paroxysmal atrial fibrillation) Marginal zone lymphoma dx 12/2020, no chemo or radiation, only gets infusion of antibodies and plasma, and iron infusion weekly, [facility] oncology Congestive heart failure Heart attack 1996, [facility]-flown to [facility], had cath no stents>pursued medication route vs. bypass route 05/2020, [facility]. heart cath, no stents at that time. "weak muscle on the bottom right side" follows with Dr Lewis ([facility] Cardiology) Osteoarthritis Chronic back pain Kidney stones hx Cirrhosis Hypothyroidism Diabetes mellitus, type 2 On anticoagulant therapy eliquis daily>as of 12/2022, medication on hold Hypertension Hyperlipidemia Myocardial Infarction x3--/--follows with Júnior Lewis, [facility] @ [facility] 1996, [facility]-flown to [facility], had cath no stents>pursued medication route vs. bypass route 2003-[facility] for cardiac cath, no stents 2005, [facility] for cardiac cath, x2 stents Surgical History History of surgical removal of ganglion cyst left hand Status post trigger finger release x2--1 on each hand History of carpal tunnel release of both wrists History of thoracic spinal fusion x2 History of lumbar spinal fusion x2 History of fusion of cervical spine normal ROM History of left shoulder replacement History of total left hip replacement History of arthroscopy of left knee x3 History of nephrolithotomy with removal of calculi x2 History of cystoscopy x2 Hx of transurethral resection of prostate Status post biopsy of kidney normal History of right inguinal hernia repair History of colonoscopy History of esophagogastroduodenoscopy (EGD) History of cholecystectomy History of tooth extraction all top teeth removed History of wisdom tooth extraction History of heart artery stent x2 stents placed 2005 @ [facility] History of cardiac cath 1996, no stents; x2; 2003 (no stents); 2005-2 stents; 05/2020-no stents>all d one [facility] History of quadruple bypass 2003 @ [facility], "felt off" had cath>had bypass Family History Mother Family history of diabetes mellitus Father Family history of diabetes mellitus Brother Family history of diabetes mellitus Family hx of colon cancer Family hx colonic polyps Sister Family history of diabetes mellitus Brother Family history of diabetes mellitus Family hx of colon cancer Family hx colonic polyps Brother Family history of diabetes mellitus Sister Family history of diabetes mellitus Sister Family history of diabetes mellitus Sister Family history of diabetes mellitus Grandfather (Maternal) Family history of diabetes mellitus Grandfather (Paternal) Family history of diabetes mellitus Grandmother (Paternal) Family history of diabetes mellitus Grandmother (Maternal) Family history of diabetes mellitus Other No family history of adverse response to anesthesia Social History Smoking Status: Never smoker Second Hand Exposure: No; Do You Dip or Chew Tobacco: No; Hx Alcohol Use: No Hx Substance Use: No Preferred Language: [place] Communication Ability: Effective Instrument Maintenance Supervisor Required: No Beliefs That Will Affect Care: None Current Living Situation: Spouse Other Information That Helps Us Care for You: No Feels Safe at Home: Yes Safety Concerns: Feels Safe At This Time Assistive Devices: Cane and Denture - Upper Physical Exam Physical Exam: CONSTITUTIONAL: WNWD, vitals as above, NAD EYES: PERRL, normal conjunctivae, no scleral icterus ENT: external ear and nose normal, MMM NECK: trachea midline RESPIRATORY: clear to auscultation bilaterally, no crackles, rales or wheezes, normal respiratory effort CARDIOVASCULAR: regular rate and rhythm, S1 and 2 heard without murmurs, gallops or rubs, no JVD, no peripheral edema CHEST: inspection of chest was normal GASTROINTESTINAL: soft, distended and protuberant abdomen with positive fluid wave, no guarding MUSCULOSKELETAL: strength 5/5 throughout, head is normocephalic and atraumatic SKIN: warm and dry NEUROLOGIC: CN 2-12 grossly intact, no sensory deficit, normal cognition, normal speech, no tremor PSYCHIATRIC: alert cooperative and oriented to person, place and time. Results & Data Results & Data Vital Signs (Past 12 Hours) Vital Signs Temp Pulse Resp BP Pulse Ox O2 Del Method 03/01/23 14:15 103 H 19 97 03/01/23 14:01 96 H 16 99 03/01/23 14:01 97/66 L 03/01/23 14:00 96 H 14 100 03/01/23 13:45 99 H 14 91 03/01/23 13:30 88/65 L 03/01/23 13:30 105 H 21 90 03/01/23 13:15 102 H 20 94 03/01/23 13:00 100 H 16 96 03/01/23 13:00 104/72 03/01/23 12:45 103 H 17 96 03/01/23 12:30 104 H 18 97 03/01/23 12:30 107/70 03/01/23 12:30 105 H 03/01/23 12:23 101 H 18 96 03/01/23 12:23 108/72 03/01/23 12:21 0 L 14 03/01/23 11:52 36.5 C 108 H 18 91/61 L 97 Room Air Laboratory Results Short CBC 03/01/23 Range/Units 12:03 WBC 9.49 (4.8-10.8) K/ul Hgb 8.4 L (14.0-18.0) g/dl Hct 26.0 L (42.0-52.0) % Plt Count 334 (130-400) K/uL BMP 03/01/23 03/01/23 12:03 15:54 Sodium 122 L 125 L Potassium 6.4 H* 5.6 H Chloride 94 L 96 L Carbon Dioxide 18 L 18 L BUN 46 H 45 H Creatinine 2.40 H 2.35 H Glucose 157 H 88 Calcium 9.1 9.1 Liver Function 03/01/23 Range/Units 12:03 Total Bilirubin 0.5 (0.2-1.0) mg/dl AST 19 (13-39) U/L ALT 12 (7-52) U/L Alkaline Phosphatase 89 (34-104) U/L Albumin 3.4 (3.4-5.0) gm/dl Diagnostic Findings Chest X-Ray 03/01/23 12:59 XR chest 1V portable HISTORY: 82 years-old Male CHF acute shortness of breath COMPARISON: 01/27/2015 TECHNIQUE: AP view of the chest FINDINGS: Cardiac silhouette is enlarged. Median sternotomy. Mild subsegmental bibasilar atelectasis versus scarring. No pneumothorax, large pleural effusion or pulmonary edema. Mild blunting of the costophrenic angles. Left shoulder arthroplasty. Bones appear grossly intact. IMPRESSION: Cardiomegaly with mild bibasilar atelectasis and possible trace right pleural effusion. ACT 112: Negative or not required by law. The above report was generated using voice recognition software. It may contain grammatical, syntax or spelling errors. Electronically signed by: Tomasz Billingsley M.D. 03/01/2023 1:54 PM Medications Administered Current Inpatient Medications Hydrocodone Bitart/Acetaminophen (Hydrocodone/Acetaminophen 7.5/325mg Tab) 1 tab PO Q8H PRN PRN Reason: Pain Stop: 03/15/23 16:45 Apixaban (Apixaban 2.5 Mg Tab) 2.5 mg PO BID ANGIE Stop: 03/31/23 20:59 Aspirin (Aspirin 81 Mg Ectab) 81 mg PO QAM ANGIE Stop: 04/01/23 08:59 Atorvastatin Calcium (Atorvastatin 40 Mg Tab) 80 mg PO QPM ANGIE Stop: 03/31/23 20:59 Famotidine (Famotidine 20 Mg Tab) 20 mg PO BID ANGIE Stop: 03/31/23 20:59 Furosemide (Furosemide Inj 20 Mg/2 Ml Vial) 20 mg IV ONE ONE Stop: 03/01/23 16:46 Albumin Human (Albumin 25%) 25 gm in 100 mls @ 50 mls/hr IV Q8H ANGIE Stop: 03/03/23 10:44 Isosorbide Mononitrate (Isosorbide [place] Extended Rel 60 Mg Tabcr) 60 mg PO QAM ANGIE Stop: 04/01/23 08:59 Levothyroxine Sodium (Levothyroxine Sodium 200 Mcg Tablet) 200 mcg PO QAM ANGIE Stop: 04/01/23 08:59 Metoclopramide HCl (Metoclopramide Hcl 10 Mg Tablet) 10 mg PO DAILY ANGIE Stop: 04/01/23 08:59 Metoprolol Succinate (Metoprolol Succ 50mg Ext Rel Tab) 100 mg PO QAM ANGIE Stop: 04/01/23 08:59 Pantoprazole Sodium (Pantoprazole 40 Mg Tab) 40 mg PO QAM ANGIE Stop: 04/01/23 08:59 Sodium Zirconium Cyclosilicate (Sodium Zirconium Cyclosilicate 10 Gm Packet) 10 gm PO TID [facility] Stop: 03/03/23 09:01 Last Admin: 03/01/23 13:09 Dose: 10 gm Tamsulosin HCl (Tamsulosin Hcl 0.4 Mg Cap) 0.4 mg PO HS [facility] Stop: 03/31/23 20:59 (1) Acute renal failure Acute renal failure type: unspecified Qualified Code(s): N17.9 - Acute kidney failure, unspecified
[2023-03-01 16:31] LABS: BUN Creatinine Ratio 19.1 (10-20); Calcium 9.1 mg/dl (8.6-10.3); Creatinine Clr Calc Pharmacy 25.4 ml/min; Est GFR (African American) 28.6 ml/min; Est GFR (Non-African American) 24.7 ml/min; Potassium 5.6 mmol/L (3.5-5.1)
[2023-03-01 17:02] LABS: Albumin Peritoneal Fluid < 1.5 gm/dl
[2023-03-01 17:08] LABS: Total Protein Peritoneal Fluid < 3.0 gm/dl
[2023-03-01] MEDS ORDERED: FUROSEMIDE INJ 20 MG/2 ML VIAL IV ONE (17:38)
[2023-03-01] MEDS ORDERED: GLUCOSE 40% GEL 15 GM TUBE PO PRN (18:25)
[2023-03-01] MEDS ORDERED: CARBOHYDRATES FOR HYPOGLYCEMIA PO PRN (18:25)
[2023-03-01] MEDS ORDERED: GLUCAGON FOR INJ 1 MG VIAL SQ PRN (18:25)
[2023-03-01] MEDS ORDERED: DEXTROSE 50% 50 ML SYRINGE IV PRN (18:25)
[2023-03-01] MEDS ORDERED: GLUCOSE 10 TAB/TUBE PO PRN (18:25)
[2023-03-01] MEDS ORDERED: POLYETHYLENE (MIRALAX) 17 GM PACK PO PRN (18:25)
[2023-03-01] MEDS: ALBUMIN 25% 25 GM/100 ML VIAL IV SCH (18:33)
[2023-03-01 18:47] LABS: Appearance Peritoneal Fluid Clear; Color Peritoneal Fluid Pale Yellow; Eosinophils, Fluid 1 %; Lymphocytes, Fluid 52 %; Mono,Macrophage,Mesothelial 45 %; Neutrophils, Fluid 2 %; RBC Peritoneal Fluid Auto < 2000 /uL; WBC Peritoneal Fluid Auto 213 /ul (0-300)
[2023-03-01] MEDS: HYDROCODONE/ACETAMINOPHEN 7.5/325MG TAB PO PRN (20:41)
[2023-03-01] MEDS: TAMSULOSIN HCL 0.4 MG CAP PO SCH (20:42)
[2023-03-01] MEDS: ATORVASTATIN 40 MG TAB PO SCH (20:42)
[2023-03-01] MEDS: FAMOTIDINE 20 MG TAB PO SCH (20:42)
[2023-03-01] MEDS ORDERED: APIXABAN 2.5 MG TAB PO SCH (21:00)
[2023-03-01 21:12] LABS: BUN Creatinine Ratio 19.5 (10-20); Calcium 8.9 mg/dl (8.6-10.3); Est GFR (African American) 28.4 ml/min; Est GFR (Non-African American) 24.5 ml/min; Potassium 5.6 mmol/L (3.5-5.1)
[2023-03-01] MEDS: INSULIN ASPART PER UNIT CHARGE SC SCH (22:13)
[2023-03-01] MEDS ORDERED: ALUMINUM/MAGNESIUM/SIMETH (MAALOX MAX) 30 ML UDC PO STA (22:14)
[2023-03-01 23:11] LABS: Troponin I High Sensitivity 26.5 pg/ml (0-20)
[2023-03-02 00:41] LABS: Calcium 8.9 mg/dl (8.6-10.3); Creatinine Clr Calc Pharmacy 25.9 ml/min; Est GFR (African American) 28.3 ml/min; Est GFR (Non-African American) 24.4 ml/min; Potassium 5.6 mmol/L (3.5-5.1)
[2023-03-02] MEDS: ALBUMIN 25% 25 GM/100 ML VIAL IV SCH ×3 (02:56→17:36)
[2023-03-02 04:50] LABS: BUN Creatinine Ratio 19.4 (10-20); Calcium 8.9 mg/dl (8.6-10.3); Creatinine Clr Calc Pharmacy 26.5 ml/min; Est GFR (Non-African American) 25.1 ml/min; Magnesium 1.4 mg/dl (1.7-2.4); Phosphorus 3.4 mg/dl (2.5-4.9); Potassium 5.5 mmol/L (3.5-5.1)
[2023-03-02 04:53] LABS: Hematocrit (blood only) 19.2 % (42.0-52.0); Hemoglobin 6.1 g/dl (14.0-18.0); Mean Corpuscular Hemoglobin 28.2 pg (25.0-34.0); Mean Corpuscular Hgb Conc 31.8 g/dL (32.0-36.0); Mean Corpuscular Volume 88.9 fL (80.0-100.0); Mean Platelet Volume 9.2 fL (9.4-12.4); Platelet Count 143 K/uL (130-400); Platelet Estimate Normal (Normal); RDW Coefficient of Variation 17.8 % (11.5-14.5); RDW Standard Deviation 57.7 fL (36.4-46.3); Red Blood Count 2.16 M/uL (4.70-6.10); White Blood Count 4.18 K/ul (4.8-10.8)
[2023-03-02] MEDS ORDERED: DEXTROSE 50% 50 ML SYRINGE IV STA ×2 (05:07)
[2023-03-02] MEDS ORDERED: SODIUM CHLORIDE 0.9% 250 ML IV PRN (05:20)
[2023-03-02] MEDS: MAGNESIUM SULFATE / D5W 1 GM/100 ML BAG IV SCH ×3 (05:28→09:17)
[2023-03-02] MEDS: SODIUM ZIRCONIUM CYCLOSILICATE 10 GM PACKET PO SCH (05:41)
[2023-03-02] MEDS: LEVOTHYROXINE SODIUM 25 MCG TABLET PO SCH (05:47)
[2023-03-02] MEDS: LEVOTHYROXINE SODIUM 200 MCG TABLET PO SCH (05:47)
--- NOTE | 2023-03-02 06:53 | Ultrasound Report ---
US duplex portal hepatic veins HISTORY: 82 years-old Male r/o PVT, cirrhosis follow-up study in a patient with cirrhosis and possib le portal vein thrombosis COMPARISON: None TECHNIQUE: Multiple real-time sonographic images of the hepatic vessels were obtained assessing karel mallika appearance, color and spectral flow FINDINGS: Exam is limited secondary to obscuring bowel gas and abdominal ascites. The splenic vein is obscured. Patent portal vein with hepatopedal flow. Normal waveforms noted within the visualized hepatic veins . Adequate artery appears normal with peak systolic velocities measuring up to 42 cm/s. Cirrhotic aleyda er. IMPRESSION: 1. Cirrhosis with ascites. 2. Hepatopedal flow within the patent portal vein. ACT 112: Negative or not required by law. The above report was generated using voice recognition software. It may contain grammatical, syntax o r spelling errors. Electronically signed by: Tomasz Billingsley M.D. 03/02/2023 6:52 AM
--- NOTE | 2023-03-02 08:54 | Gastrointestinal Consultation ---
Date of Consultation March 02, 2023 Assessment & Plan (1) Cirrhosis of liver: 82 year old male with cirrhosis, MELD 25, admitted with EDMAR, electrolyte abnormalities, ascites EDMAR Hold Lasix, Aldactone Trend BURN OUT TENDER LACE Check urine NA Appreciate nephrology input Appreciate guidance with electrolytes Ascites No SBP on fluid studies Repeat paracentesis, may take up to 5L off Check fluid studies and culture on repeat paracentesis Give Albumin 25% 25G before and after paracentesis Safely resume diuresis when kidney function permits Low NA diet, less than 2G daily Anemia No evidence of GI bleeding Denies hematemesis, coffee ground emesis No report of black or bloody stools, last BM was 1-2 days ago and reported brown Trend H&H Transfuse PRN primary team Monitor output General Management No NSAIDs No ETOH Less than 2G tylenol if using Trend MELD labs EGD in 1-2 years Continued follow up with hepatology Thank you for allowing us to participate in the care of this patient. Please call with any acute changes, questions or concerns. Please see addendum below with additional recommendation from my supervising physician. (2) Cirrhosis: Supervising Physician Co-Signing Physician Notes Saw and evaluated the patient. 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 He was last seen on at which time he was doing fairly well. He was admitted with Several lab abnormalities. He has lab abnormalities to include including increased creatinine and swelling in his abdomen. Of note the patient does have a history of congestive heart failure with an EF of 30%. Recomendation: Low sodium diet await nephrology input for assistance with diuretics Pro-BNP given history of CHF. History of Present Illness Reason for Consultation: cirrhosis w/ ascites Requesting Physician: Calin Attending Physician: Jaelyn Layton MD History of Present Illness 82 year old male with CHF, PAF, T2DM, cirrhosis and others below admitted through the ED w/ abnormal labs - GI was asked to evaluate. Pt was seen and evaluated, chart reviewed. Notes this AM, he is feeling okay. He denies abd pain but has some abd pressure which he relates to ascites. No nausea, vomiting. Just completed breakfast. No GERD or dysphagia. Notes he has had constipation for a few days - started on a bowel regimen. Denies black or bloody stools. No fever, chills, CP, SOB. WBC 4, HGB 6.1, HCT 19. PLT 143. S/P 1 unit RBCs. INR 1.3. NA 126, K 5.5 w/ BURN OUT TENDER LACE 2.32. Tbili 0.5, AST 19, ALT 12, ALKP 89. Diagnostic paracentesis yesterday w/ peritoneal WBC 200, SAAG 1.9 w/ total protein not precisely calculated. Lasix and Aldactone are held. Denies ETOH use, tylenol use, supplement use MELD 25 ABD US 2022: Cirrhosis with ascites. Hepatopedal flow within the patent portal vein. EGD 2022: - Normal esophagus. - Grade I esophageal varices. - Normal stomach. - Mild portal hypertensive gastropathy. - Normal duodenal bulb and second portion of the duodenum. Colonoscopy 2020: - Preparation of the colon was fair. - Two small polyps in the transverse colon, removed with a cold snare. Resected and retrieved. - The examination was otherwise normal on direct and retroflexion views. Allergies Allergy/AdvReac Type Severity Reaction Status Date / Time Iodinated Contrast Media Allergy Severe IVP DYE = Verified 03/01/23 15:34 ANAPHYLAXIS lisinopril AdvReac Cough Verified 03/01/23 15:34 Home Medications Medication Instructions Recorded Confirmed Type acetaminophen 325 mg tablet 325 mg PO Q6H PRN Pain 02/02/19 03/01/23 History (Tylenol) amoxicillin 500 mg tablet 2,000 mg PO UD PRN prior to dental 02/02/19 03/01/23 History procedures apixaban 5 mg tablet (Eliquis) 2.5 mg PO BID 02/02/19 03/01/23 History aspirin 81 mg tablet,delayed 81 mg PO QAM 02/02/19 03/01/23 History release (Sharita Low Dose Aspirin) atorvastatin 80 mg tablet 80 mg PO QPM 02/02/19 03/01/23 History diphenoxylate-atropine 2.5 1 tab PO QID PRN Diarrhea 02/02/19 03/01/23 History mg-0.025 mg tablet (Lomotil) ferrous sulfate 325 mg (65 mg 325 mg PO BID 02/02/19 03/01/23 History iron) tablet,delayed release furosemide 20 mg tablet 20 mg PO QAM 02/02/19 03/01/23 History hydrocodone 7.5 mg-acetaminophen 1 tab PO Q8H PRN Pain 02/02/19 03/01/23 History 325 mg tablet magnesium oxide 800 mg PO BID 02/02/19 03/01/23 History metformin 850 mg tablet 850 mg PO BID 02/02/19 03/01/23 History metoprolol succinate 100 mg 100 mg PO QAM 02/02/19 03/01/23 History tablet,extended release 24 hr iyjcafqh-ianroynt-wripc acid 400 1 tab PO QPM 02/02/19 03/01/23 History mcg-vit K 20 mcg-lycop 300 mcg tablet (One-A-Day Men's Multivitamin) nitroglycerin 0.4 mg sublingual 0.4 mg sublingual UD PRN Angina 02/02/19 03/01/23 History tablet tamsulosin 0.4 mg capsule 0.4 mg PO HS 02/02/19 03/01/23 History triamcinolone acetonide 0.1 % 1 applic topical BID PRN Rash 02/02/19 03/01/23 History topical cream famotidine 20 mg tablet (Pepcid) 20 mg PO BID 09/23/20 03/01/23 History ondansetron 8 mg disintegrating 8 mg PO Q12H PRN Nausea 02/19/21 03/01/23 History tablet isosorbide mononitrate 60 mg 60 mg PO QAM 11/25/22 03/01/23 History tablet,extended release 24 hr albuterol sulfate 90 mcg/actuation 2 puff inhalation TID 03/01/23 03/01/23 History aerosol inhaler (Proventil HFA) glipizide 10 mg tablet, extended 20 mg PO DAILY 03/01/23 03/01/23 History release 24 hr levothyroxine 200 mcg tablet 200 mcg PO QAM 03/01/23 03/01/23 History levothyroxine 25 mcg tablet 25 mcg PO DAILYBB 03/01/23 03/01/23 History losartan 25 mg tablet 25 mg PO DAILY 03/01/23 03/01/23 History metoclopramide HCl 10 mg tablet 10 mg PO DAILY 03/01/23 03/01/23 History pantoprazole 40 mg tablet,delayed 40 mg PO QAM 03/01/23 03/01/23 History release semaglutide 1 mg/dose (4 mg/3 mL) 1 mg subcut .Q WED 03/01/23 03/01/23 History subcutaneous pen injector (Ozempic) spironolactone 50 mg tablet 50 mg PO QAM 03/01/23 03/01/23 History torsemide 20 mg tablet 40 mg PO DAILY 03/01/23 03/01/23 History Patient History Medical History (Updated 03/02/23 @ 11:21 by Josefina Franco MD, PhD) CKD (chronic kidney disease) stage 3, GFR 30-59 ml/min Chronic systolic heart failure PAF (paroxysmal atrial fibrillation) Marginal zone lymphoma dx 12/2020, 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 bypass route 05/2020, [facility]. heart cath, no stents at that time. "weak muscle on the bottom right side" follows with Dr Lewis ([facility] Cardiology) Osteoarthritis Chronic back pain Kidney stones hx Cirrhosis Hypothyroidism Diabetes mellitus, type 2 On anticoagulant therapy eliquis daily>as of 12/2022, medication on hold Hypertension Hyperlipidemia Myocardial Infarction x3--1988/1996/--follows with Júnior Lewis, [facility]SCAR @ [facility] 1996, [facility]-flown to [facility], had cath no stents>pursued medication route vs. bypass route 2003-[facility] for cardiac cath, no stents 2005, [facility] for cardiac cath, x2 stents Surgical History History of surgical removal of ganglion cyst left hand Status post trigger finger release x2--1 on each hand History of carpal tunnel release of both wrists History of thoracic spinal fusion x2 History of lumbar spinal fusion x2 History of fusion of cervical spine normal ROM History of left shoulder replacement History of total left hip replacement History of arthroscopy of left knee x3 History of nephrolithotomy with removal of calculi x2 History of cystoscopy x2 Hx of transurethral resection of prostate Status post biopsy of kidney normal History of right inguinal hernia repair History of colonoscopy History of esophagogastroduodenoscopy (EGD) History of cholecystectomy History of tooth extraction all top teeth removed History of wisdom tooth extraction History of heart artery stent x2 stents placed 2005 @ [facility] [place] History of cardiac cath 1996, no stents; x2; 2003 (no stents); 2005-2 stents; 05/2020-no stents>all done [facility] [place] History of quadruple bypass 2003 @ [facility] [place], "felt off" had cath>had bypass Family History Mother Family history of diabetes mellitus Father Family history of diabetes mellitus Brother Family history of diabetes mellitus Family hx of colon cancer Family hx colonic polyps Sister Family history of diabetes mellitus Brother Family history of diabetes mellitus Family hx of colon cancer Family hx colonic polyps Brother Family history of diabetes mellitus Sister Family history of diabetes mellitus Sister Family history of diabetes mellitus Sister Family history of diabetes mellitus Grandfather (Maternal) Family history of diabetes mellitus Grandfather (Paternal) Family history of diabetes mellitus Grandmother (Paternal) Family history of diabetes mellitus Grandmother (Maternal) Family history of diabetes mellitus Other No family history of adverse response to anesthesia Social History Smoking Status: Never smoker Second Hand Exposure: No; Do You Dip or Chew Tobacco: No; Hx Alcohol Use: No Hx Substance Use: No Preferred Language: Guamanian Communication Ability: Effective 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: No Beliefs That Will Affect Care: None Current Living Situation: Spouse Other Information That Helps Us Care for You: No Feels Safe at Home: Yes Safety Concerns: Feels Safe At This Time Assistive Devices: Cane, Stair Lift and Walker Review of Systems Review of Systems: All systems reviewed & are unremarkable except as noted in HPI & below Physical Exam Constitutional: WD/WN, vitals as above Neck: trachea midline Respiratory: normal respiratory effort Cardiovascular: Rate/Rhythm: regular rate Gastrointestinal (Abdomen): Percussion/Palpation: abdomen nontender, no guarding and abdomen not rigid + moderate distention with ascites Skin: no rashes, warm and dry Results & Data Vital Signs (Past 12 Hours) Vital Signs Temp Pulse Pulse Resp BP BP Pulse Ox 03/02/23 07:28 36.7 C 110 H 18 110/65 94 03/02/23 06:58 36.5 C 101 H 18 100/59 L 98 03/02/23 06:43 36.7 C 90 18 91/51 L 95 03/02/23 06:21 36.6 C 96 H 18 97/56 L 98 03/01/23 22:47 37.1 C 93 H 19 105/67 97 03/01/23 22:00 104 H O2 Del Method 03/02/23 07:28 03/02/23 06:58 03/02/23 06:43 03/02/23 06:21 03/01/23 22:47 Room Air 03/01/23 22:00 Laboratory Results 03/02/23 03/02/23 03/02/23 Range/Units 07:24 05:08 03:50 WBC (4.8-10.8) K/ul RBC (4.70-6.10) M/uL Hgb (14.0-18.0) g/dl Hct (42.0-52.0) % MCV (80.0-100.0) fL MCH (25.0-34.0) pg MCHC (32.0-36.0) g/dL RDW Std Deviation (36.4-46.3) fL RDW Coeff of Jaqueline (11.5-14.5) % Plt Count (130-400) K/uL MPV (9.4-12.4) fL Platelet Estimate (Normal) PT (9.0-12.0) Seconds INR (0.9-1.1) APTT (21.0-31.0) Seconds PTT Ratio Sodium (136-145) mmol/L Potassium (3.5-5.1) mmol/L Chloride (98-107) mmol/L Carbon Dioxide (21-32) mmol/L Anion Gap (3-11) BUN (6-23) mg/dl Creatinine (0.6-1.4) mg/dl Est Cr Clr Drug Dosing Est GFR ( Amer) ml/min Est GFR (Non-Af Amer) ml/min BUN/Creatinine Ratio (10-20) Glucose (70-99(Fasting)) mg/dl POC Glucose 185 H 77 (70-99) mg/dl Calcium Cancelled (8.6-10.3) mg/dl Phosphorus 3.4 (2.5-4.9) mg/dl Magnesium 1.4 L (1.7-2.4) mg/dl Total Bilirubin (0.2-1.0) mg/dl AST (13-39) U/L ALT (7-52) U/L Alkaline Phosphatase (34-104) U/L Troponin I High Sens (0-20) pg/ml Total Protein (6.0-8.3) gm/dl Albumin (3.4-5.0) gm/dl Globulin (2.5-4.0) gm/dl Albumin/Globulin Ratio (0.9-2) Fluid Neutrophils % % Fluid Lymphocytes % % Fluid Eosinophils % % Fluid Meso/Macro/[place] % % Fluid Slide Review Fluid Comment Peritoneal Color Peritoneal Appearance Peritoneal WBC (Auto) (0-300) /ul Peritoneal RBC (Auto) /uL Peritoneal Tot Protein gm/dl Peritoneal Albumin gm/dl Blood Type Antibody Screen Crossmatch 03/02/23 03/02/23 03/02/23 Range/Units 03:50 03:50 03:50 WBC (4.8-10.8) K/ul RBC (4.70-6.10) M/uL Hgb (14.0-18.0) g/dl Hct (42.0-52.0) % MCV (80.0-100.0) fL MCH (25.0-34.0) pg MCHC (32.0-36.0) g/dL RDW Std Deviation (36.4-46.3) fL RDW Coeff of Jaqueline (11.5-14.5) % Plt Count (130-400) K/uL MPV (9.4-12.4) fL Platelet Estimate (Normal) PT (9.0-12.0) Seconds INR (0.9-1.1) APTT (21.0-31.0) Seconds PTT Ratio Sodium (136-145) mmol/L Potassium (3.5-5.1) mmol/L Chloride (98-107) mmol/L Carbon Dioxide (21-32) mmol/L Anion Gap (3-11) BUN (6-23) mg/dl Creatinine (0.6-1.4) mg/dl Est Cr Clr Drug Dosing Est GFR ( Amer) ml/min Est GFR (Non-Af Amer) Cancelled ml/min BUN/Creatinine Ratio Cancelled 19.4 (10-20) Glucose Cancelled 51 L* (70-99(Fasting)) mg/dl POC Glucose (70-99) mg/dl Calcium 8.9 (8.6-10.3) mg/dl Phosphorus (2.5-4.9) mg/dl Magnesium (1.7-2.4) mg/dl Total Bilirubin (0.2-1.0) mg/dl AST (13-39) U/L ALT (7-52) U/L Alkaline Phosphatase (34-104) U/L Troponin I High Sens (0-20) pg/ml Total Protein (6.0-8.3) gm/dl Albumin (3.4-5.0) gm/dl Globulin (2.5-4.0) gm/dl Albumin/Globulin Ratio (0.9-2) Fluid Neutrophils % % Fluid Lymphocytes % % Fluid Eosinophils % % Fluid Meso/Macro/[place] % % Fluid Slide Review Fluid Comment Peritoneal Color Peritoneal Appearance Peritoneal WBC (Auto) (0-300) /ul Peritoneal RBC (Auto) /uL Peritoneal Tot Protein gm/dl Peritoneal Albumin gm/dl Blood Type Antibody Screen Crossmatch 03/02/23 03/02/23 03/02/23 Range/Units 03:50 03:50 03:50 WBC (4.8-10.8) K/ul RBC (4.70-6.10) M/uL Hgb (14.0-18.0) g/dl Hct (42.0-52.0) % MCV (80.0-100.0) fL MCH (25.0-34.0) pg MCHC (32.0-36.0) g/dL RDW Std Deviation (36.4-46.3) fL RDW Coeff of Jaqueline (11.5-14.5) % Plt Count (130-400) K/uL MPV (9.4-12.4) fL Platelet Estimate (Normal) PT (9.0-12.0) Seconds INR (0.9-1.1) APTT (21.0-31.0) Seconds PTT Ratio Sodium (136-145) mmol/L Potassium (3.5-5.1) mmol/L Chloride (98-107) mmol/L Carbon Dioxide (21-32) mmol/L Anion Gap (3-11) BUN (6-23) mg/dl Creatinine Cancelled (0.6-1.4) mg/dl Est Cr Clr Drug Dosing Cancelled 26.5 Est GFR ( Amer) Cancelled 29.0 ml/min Est GFR (Non-Af Amer) 25.1 ml/min BUN/Creatinine Ratio (10-20) Glucose (70-99(Fasting)) mg/dl POC Glucose (70-99) mg/dl Calcium (8.6-10.3) mg/dl Phosphorus (2.5-4.9) mg/dl Magnesium (1.7-2.4) mg/dl Total Bilirubin (0.2-1.0) mg/dl AST (13-39) U/L ALT (7-52) U/L Alkaline Phosphatase (34-104) U/L Troponin I High Sens (0-20) pg/ml Total Protein (6.0-8.3) gm/dl Albumin (3.4-5.0) gm/dl Globulin (2.5-4.0) gm/dl Albumin/Globulin Ratio (0.9-2) Fluid Neutrophils % % Fluid Lymphocytes % % Fluid Eosinophils % % Fluid Meso/Macro/[place] % % Fluid Slide Review Fluid Comment Peritoneal Color Peritoneal Appearance Peritoneal WBC (Auto) (0-300) /ul Peritoneal RBC (Auto) /uL Peritoneal Tot Protein gm/dl Peritoneal Albumin gm/dl Blood Type Antibody Screen Crossmatch 03/02/23 03/02/23 03/02/23 Range/Units 03:50 03:50 03:50 WBC (4.8-10.8) K/ul RBC (4.70-6.10) M/uL Hgb (14.0-18.0) g/dl Hct (42.0-52.0) % MCV (80.0-100.0) fL MCH (25.0-34.0) pg MCHC (32.0-36.0) g/dL RDW Std Deviation (36.4-46.3) fL RDW Coeff of Jaqueline (11.5-14.5) % Plt Count (130-400) K/uL MPV (9.4-12.4) fL Platelet Estimate (Normal) PT (9.0-12.0) Seconds INR (0.9-1.1) APTT (21.0-31.0) Seconds PTT Ratio Sodium (136-145) mmol/L Potassium (3.5-5.1) mmol/L Chloride (98-107) mmol/L Carbon Dioxide Cancelled (21-32) mmol/L Anion Gap Cancelled 8 (3-11) BUN Cancelled 45 H (6-23) mg/dl Creatinine 2.32 H (0.6-1.4) mg/dl Est Cr Clr Drug Dosing Est GFR ( Amer) ml/min Est GFR (Non-Af Amer) ml/min BUN/Creatinine Ratio (10-20) Glucose (70-99(Fasting)) mg/dl POC Glucose (70-99) mg/dl Calcium (8.6-10.3) mg/dl Phosphorus (2.5-4.9) mg/dl Magnesium (1.7-2.4) mg/dl Total Bilirubin (0.2-1.0) mg/dl AST (13-39) U/L ALT (7-52) U/L Alkaline Phosphatase (34-104) U/L Troponin I High Sens (0-20) pg/ml Total Protein (6.0-8.3) gm/dl Albumin (3.4-5.0) gm/dl Globulin (2.5-4.0) gm/dl Albumin/Globulin Ratio (0.9-2) Fluid Neutrophils % % Fluid Lymphocytes % % Fluid Eosinophils % % Fluid Meso/Macro/[place] % % Fluid Slide Review Fluid Comment Peritoneal Color Peritoneal Appearance Peritoneal WBC (Auto) (0-300) /ul Peritoneal RBC (Auto) /uL Peritoneal Tot Protein gm/dl Peritoneal Albumin gm/dl Blood Type Antibody Screen Crossmatch 03/02/23 03/02/23 03/02/23 Range/Units 03:50 03:50 03:50 WBC (4.8-10.8) K/ul RBC (4.70-6.10) M/uL Hgb (14.0-18.0) g/dl Hct (42.0-52.0) % MCV (80.0-100.0) fL MCH (25.0-34.0) pg MCHC (32.0-36.0) g/dL RDW Std Deviation (36.4-46.3) fL RDW Coeff of Jaqueline (11.5-14.5) % Plt Count (130-400) K/uL MPV (9.4-12.4) fL Platelet Estimate (Normal) PT (9.0-12.0) Seconds INR (0.9-1.1) APTT (21.0-31.0) Seconds PTT Ratio Sodium Cancelled (136-145) mmol/L Potassium Cancelled 5.5 H (3.5-5.1) mmol/L Chloride Cancelled 97 L (98-107) mmol/L Carbon Dioxide 21 (21-32) mmol/L Anion Gap (3-11) BUN (6-23) mg/dl Creatinine (0.6-1.4) mg/dl Est Cr Clr Drug Dosing Est GFR ( Amer) ml/min Est GFR (Non-Af Amer) ml/min BUN/Creatinine Ratio (10-20) Glucose (70-99(Fasting)) mg/dl POC Glucose (70-99) mg/dl Calcium (8.6-10.3) mg/dl Phosphorus (2.5-4.9) mg/dl Magnesium (1.7-2.4) mg/dl Total Bilirubin (0.2-1.0) mg/dl AST (13-39) U/L ALT (7-52) U/L Alkaline Phosphatase (34-104) U/L Troponin I High Sens (0-20) pg/ml Total Protein (6.0-8.3) gm/dl Albumin (3.4-5.0) gm/dl Globulin (2.5-4.0) gm/dl Albumin/Globulin Ratio (0.9-2) Fluid Neutrophils % % Fluid Lymphocytes % % Fluid Eosinophils % % Fluid Meso/Macro/[place] % % Fluid Slide Review Fluid Comment Peritoneal Color Peritoneal Appearance Peritoneal WBC (Auto) (0-300) /ul Peritoneal RBC (Auto) /uL Peritoneal Tot Protein gm/dl Peritoneal Albumin gm/dl Blood Type Antibody Screen Crossmatch 03/02/23 03/01/23 03/01/23 Range/Units 03:50 22:32 20:50 WBC 4.18 L D (4.8-10.8) K/ul RBC 2.16 L (4.70-6.10) M/uL Hgb 6.1 L* (14.0-18.0) g/dl Hct 19.2 L* (42.0-52.0) % MCV 88.9 (80.0-100.0) fL MCH 28.2 (25.0-34.0) pg MCHC 31.8 L (32.0-36.0) g/dL RDW Std Deviation 57.7 H (36.4-46.3) fL RDW Coeff of Jaqueline 17.8 H (11.5-14.5) % Plt Count 143 D (130-400) K/uL MPV 9.2 L (9.4-12.4) fL Platelet Estimate Normal (Normal) PT (9.0-12.0) Seconds INR (0.9-1.1) APTT (21.0-31.0) Seconds PTT Ratio Sodium 126 L 125 L (136-145) mmol/L Potassium 5.6 H (3.5-5.1) mmol/L Chloride 97 L (98-107) mmol/L Carbon Dioxide 18 L (21-32) mmol/L Anion Gap 10 (3-11) BUN 45 H (6-23) mg/dl Creatinine 2.37 H (0.6-1.4) mg/dl Est Cr Clr Drug Dosing 25.9 Est GFR ( Amer) 28.3 ml/min Est GFR (Non-Af Amer) 24.4 ml/min BUN/Creatinine Ratio 19.0 (10-20) Glucose 79 (70-99(Fasting)) mg/dl POC Glucose 105 H (70-99) mg/dl Calcium 8.9 (8.6-10.3) mg/dl Phosphorus (2.5-4.9) mg/dl Magnesium (1.7-2.4) mg/dl Total Bilirubin (0.2-1.0) mg/dl AST (13-39) U/L ALT (7-52) U/L Alkaline Phosphatase (34-104) U/L Troponin I High Sens 26.5 H (0-20) pg/ml Total Protein (6.0-8.3) gm/dl Albumin (3.4-5.0) gm/dl Globulin (2.5-4.0) gm/dl Albumin/Globulin Ratio (0.9-2) Fluid Neutrophils % % Fluid Lymphocytes % % Fluid Eosinophils % % Fluid Meso/Macro/[place] % % Fluid Slide Review Fluid Comment Peritoneal Color Peritoneal Appearance Peritoneal WBC (Auto) (0-300) /ul Peritoneal RBC (Auto) /uL Peritoneal Tot Protein gm/dl Peritoneal Albumin gm/dl Blood Type Antibody Screen Crossmatch 03/01/23 03/01/23 03/01/23 Range/Units 20:33 19:53 18:10 WBC (4.8-10.8) K/ul RBC (4.70-6.10) M/uL Hgb (14.0-18.0) g/dl Hct (42.0-52.0) % MCV (80.0-100.0) fL MCH (25.0-34.0) pg MCHC (32.0-36.0) g/dL RDW Std Deviation (36.4-46.3) fL RDW Coeff of Jaqueline (11.5-14.5) % Plt Count (130-400) K/uL MPV (9.4-12.4) fL Platelet Estimate (Normal) PT (9.0-12.0) Seconds INR (0.9-1.1) APTT (21.0-31.0) Seconds PTT Ratio Sodium 125 L (136-145) mmol/L Potassium 5.6 H (3.5-5.1) mmol/L Chloride 97 L (98-107) mmol/L Carbon Dioxide 17 L (21-32) mmol/L Anion Gap 11 (3-11) BUN 46 H (6-23) mg/dl Creatinine 2.36 H (0.6-1.4) mg/dl Est Cr Clr Drug Dosing 26.0 Est GFR ( Amer) 28.4 ml/min Est GFR (Non-Af Amer) 24.5 ml/min BUN/Creatinine Ratio 19.5 (10-20) Glucose 86 (70-99(Fasting)) mg/dl POC Glucose 89 76 (70-99) mg/dl Calcium 8.9 (8.6-10.3) mg/dl Phosphorus (2.5-4.9) mg/dl Magnesium (1.7-2.4) mg/dl Total Bilirubin (0.2-1.0) mg/dl AST (13-39) U/L ALT (7-52) U/L Alkaline Phosphatase (34-104) U/L Troponin I High Sens (0-20) pg/ml Total Protein (6.0-8.3) gm/dl Albumin (3.4-5.0) gm/dl Globulin (2.5-4.0) gm/dl Albumin/Globulin Ratio (0.9-2) Fluid Neutrophils % % Fluid Lymphocytes % % Fluid Eosinophils % % Fluid Meso/Macro/[place] % % Fluid Slide Review Fluid Comment Peritoneal Color Peritoneal Appearance Peritoneal WBC (Auto) (0-300) /ul Peritoneal RBC (Auto) /uL Peritoneal Tot Protein gm/dl Peritoneal Albumin gm/dl Blood Type Antibody Screen Crossmatch 03/01/23 03/01/23 03/01/23 Range/Units 15:54 15:48 15:48 WBC (4.8-10.8) K/ul RBC (4.70-6.10) M/uL Hgb (14.0-18.0) g/dl Hct (42.0-52.0) % MCV (80.0-100.0) fL MCH (25.0-34.0) pg MCHC (32.0-36.0) g/dL RDW Std Deviation (36.4-46.3) fL RDW Coeff of Jaqueline (11.5-14.5) % Plt Count (130-400) K/uL MPV (9.4-12.4) fL Platelet Estimate (Normal) PT (9.0-12.0) Seconds INR (0.9-1.1) APTT (21.0-31.0) Seconds PTT Ratio Sodium 125 L (136-145) mmol/L Potassium 5.6 H (3.5-5.1) mmol/L Chloride 96 L (98-107) mmol/L Carbon Dioxide 18 L (21-32) mmol/L Anion Gap 11 (3-11) BUN 45 H (6-23) mg/dl Creatinine 2.35 H (0.6-1.4) mg/dl Est Cr Clr Drug Dosing 25.4 Est GFR ( Amer) 28.6 ml/min Est GFR (Non-Af Amer) 24.7 ml/min BUN/Creatinine Ratio 19.1 (10-20) Glucose 88 (70-99(Fasting)) mg/dl POC Glucose (70-99) mg/dl Calcium 9.1 (8.6-10.3) mg/dl Phosphorus (2.5-4.9) mg/dl Magnesium (1.7-2.4) mg/dl Total Bilirubin (0.2-1.0) mg/dl AST (13-39) U/L ALT (7-52) U/L Alkaline Phosphatase (34-104) U/L Troponin I High Sens (0-20) pg/ml Total Protein (6.0-8.3) gm/dl Albumin (3.4-5.0) gm/dl Globulin (2.5-4.0) gm/dl Albumin/Globulin Ratio (0.9-2) Fluid Neutrophils % 2 % Fluid Lymphocytes % 52 % Fluid Eosinophils % 1 % Fluid Meso/Macro/[place] % 45 % Fluid Slide Review Fluid Comment Peritoneal Color Pale Yellow Peritoneal Appearance Clear Peritoneal WBC (Auto) 213 (0-300) /ul Peritoneal RBC (Auto) < 2000 /uL Peritoneal Tot Protein Cancelled < 3.0 gm/dl Peritoneal Albumin < 1.5 gm/dl Blood Type Antibody Screen Crossmatch 03/01/23 Range/Units 12:03 WBC 9.49 (4.8-10.8) K/ul RBC 2.88 L (4.70-6.10) M/uL Hgb 8.4 L (14.0-18.0) g/dl Hct 26.0 L (42.0-52.0) % MCV 90.3 (80.0-100.0) fL MCH 29.2 (25.0-34.0) pg MCHC 32.3 (32.0-36.0) g/dL RDW Std Deviation 58.5 H (36.4-46.3) fL RDW Coeff of Jaqueline 17.9 H (11.5-14.5) % Plt Count 334 (130-400) K/uL MPV 9.5 (9.4-12.4) fL Platelet Estimate (Normal) PT 13.7 H (9.0-12.0) Seconds INR 1.3 H (0.9-1.1) APTT 31.8 H (21.0-31.0) Seconds PTT Ratio 1.1 Sodium 122 L (136-145) mmol/L Potassium 6.4 H* (3.5-5.1) mmol/L Chloride 94 L (98-107) mmol/L Carbon Dioxide 18 L (21-32) mmol/L Anion Gap 10 (3-11) BUN 46 H (6-23) mg/dl Creatinine 2.40 H (0.6-1.4) mg/dl Est Cr Clr Drug Dosing Not Reportable Est GFR ( Amer) 27.9 ml/min Est GFR (Non-Af Amer) 24.0 ml/min BUN/Creatinine Ratio 19.2 (10-20) Glucose 157 H (70-99(Fasting)) mg/dl POC Glucose (70-99) mg/dl Calcium 9.1 (8.6-10.3) mg/dl Phosphorus (2.5-4.9) mg/dl Magnesium (1.7-2.4) mg/dl Total Bilirubin 0.5 (0.2-1.0) mg/dl AST 19 (13-39) U/L ALT 12 (7-52) U/L Alkaline Phosphatase 89 (34-104) U/L Troponin I High Sens 23.9 H (0-20) pg/ml Total Protein 6.2 (6.0-8.3) gm/dl Albumin 3.4 (3.4-5.0) gm/dl Globulin 2.8 (2.5-4.0) gm/dl Albumin/Globulin Ratio 1.2 (0.9-2) Fluid Neutrophils % % Fluid Lymphocytes % % Fluid Eosinophils % % Fluid Meso/Macro/[place] % % Fluid Slide Review Fluid Comment Peritoneal Color Peritoneal Appearance Peritoneal WBC (Auto) (0-300) /ul Peritoneal RBC (Auto) /uL Peritoneal Tot Protein gm/dl Peritoneal Albumin gm/dl Blood Type O Positive Antibody Screen NEGATIVE Crossmatch See Detail
[2023-03-02] MEDS ORDERED: FUROSEMIDE INJ 20 MG/2 ML VIAL IV ONE (09:00)
[2023-03-02] MEDS ORDERED: PANTOprazole 40 MG TAB PO SCH (09:00)
[2023-03-02] MEDS ORDERED: ASPIRIN 81 MG ECTAB PO SCH (09:00)
[2023-03-02] MEDS: ISOSORBIDE MONO EXTENDED REL 60 MG TABCR PO SCH (09:17)
[2023-03-02] MEDS: PANTOprazole 40 MG TAB PO SCH ×2 (09:17→21:19)
[2023-03-02] MEDS: METOCLOPRAMIDE HCL 10 MG TABLET PO SCH (09:17)
[2023-03-02] MEDS: FAMOTIDINE 20 MG TAB PO SCH ×2 (09:17→21:19)
[2023-03-02] MEDS: METOPROLOL SUCC 50MG EXT REL TAB PO SCH (09:17)
[2023-03-02] MEDS: HYDROCODONE/ACETAMINOPHEN 7.5/325MG TAB PO PRN ×3 (09:23→23:07)
--- NOTE | 2023-03-02 09:57 | Electrocardiogram Report ---
Test Reason : Blood Pressure : / mmHG Vent. Rate : 101 BPM Atrial Rate : 101 BPM P-R Int : 198 ms QRS Dur : 084 ms QT Int : 330 ms P-R-T Axes : -29 -35 048 degrees QTc Int : 427 ms Sinus tachycardia Left axis deviation Low voltage QRS Old Inferior infarct (cited on or before 01-MAR-2023) Old Anterolateral infarct (cited on or before 01-MAR-2023) Abnormal ECG When compared with ECG of 01-MAR-2023 12:04, No significant change was found Confirmed by Ari Howell ([id number]) on 03/02/2023 9:57:04 AM Referred By: Herb Acevedo Confirmed By:Ari Howell
[2023-03-02] MEDS: INSULIN ASPART PER UNIT CHARGE SC SCH ×4 (10:12→21:26)
--- NOTE | 2023-03-02 11:11 | Nephrology Consultation ---
Date of Consultation March 02, 2023 Assessment & Plan (1) Acute kidney injury superimposed on chronic kidney disease: EDMAR nonoliguric stage 1 EDMAR on nonproteinuric CKD 3B w/ electrolyte issues as below. progressive ckd in 2022 > baseline in late summer mid ones. admission creatinine 2.3-2.4 and plateau'd from there. likely ischemic ATN though HRS, glomerular process also on differential -daily bmp -recommend renal u/s as baseline study -continue IV albumin 48 hrs (2) Chronic systolic heart failure: care w/ fluid resuscitation (3) Hyperkalemia: K 5.5 this am and 6.4 on presentation -would give veltassa rather than lokelma given HF issues, though lokelma can be quicker to act >> changed to veltassa daily >low K diet when taking po >recheck bmp w/ next hgb check ordered for 1300 (4) Hyponatremia: a/w sNa 122> improved to 126 > 125 clearly hypervolemic hyponatremia >when taking PO needs FR 1.5 L goal sNa is 134 for am (5) Acute on chronic anemia: per primary service and GI transfuse prn History of Present Illness Reason for Consultation: Electrolyte abnormality, renal failure, liver cirrhosis Requesting Physician: Dr. Valencia Attending Physician: Jaelyn Layton MD History of Present Illness 82-year-old male whom I am asked to evaluate for electrolyte abnormalities and renal failure in the setting of liver cirrhosis was admitted yesterday afternoon with acute kidney injury, hyperkalemia, hyponatremia. Past medical history include HIDALGO cirrhosis, marginal zone lymphoma, severe multivessel coronary artery disease status post 2014 CABG and 2016 DEVIN, chronic systolic heart failure ejection fraction 30%, paroxysmal atrial fibrillation on DOAC, diabetes type II, hypothyroid with recent TSH in the 14 range and subsequent Synthroid dose adjustment. Also w/ chronic mild hyponatremia and hyperkalemia since October 2022. Also w/ nonproteinuric CKD 3B with baseline creatinine in the mid 's. Does not follow with nephrology as an outpatient. Pt states he developed liver dz as complication of pRBC He presented with a potassium of 6.4, creatinine 2.6 and sodium 122 on midday labs yesterday. He received insulin and Lokelma with improvement to potassium of 5.6. He was started on Lasix and albumin. P.o. intake encouraged. This morning sodium is 126, potassium 5.5, creatinine 2.3. Hemoglobin has also dropped from 8.4 to 6.1. GI is following. Diagnostic paracentesis shows no SBP. Therapeutic paracentesis up to 5 L is planned. Aldactone currently on hold, as are metformin, torsemide, multivitamin, losartan. OP diuretics had on the day of admission been changed around from Lasix to torsemide. Frequent vomiting and diarrhea prior to admission with emesis often losing his pills after 1 or 2 bites of food. His tells me he's been vomiting daily x 2 mos and on many days eats likely less than 400 calories. Frequent hypoglycemia treated with V8 and orange juice prior to admission. Also drinks glucerna. Difficulty ambulating due to generalized weakness and significant fatigue. is [place] b/c has fluid behind eardrum and can't get in until May. Denies sob, uncontrolled pain, n/v He is currently n.p.o. Allergies Allergy/AdvReac Type Severity Reaction Status Date / Time Iodinated Contrast Media Allergy Severe IVP DYE = Verified 03/01/23 15:34 ANAPHYLAXIS lisinopril AdvReac Cough Verified 03/01/23 15:34 Home Medications Medication Instructions Recorded Confirmed Type acetaminophen 325 mg tablet 325 mg PO Q6H PRN Pain 02/02/19 03/01/23 History (Tylenol) amoxicillin 500 mg tablet 2,000 mg PO UD PRN prior to dental 02/02/19 03/01/23 History procedures apixaban 5 mg tablet (Eliquis) 2.5 mg PO BID 02/02/19 03/01/23 History aspirin 81 mg tablet,delayed 81 mg PO QAM 02/02/19 03/01/23 History release (Sharita Low Dose Aspirin) atorvastatin 80 mg tablet 80 mg PO QPM 02/02/19 03/01/23 History diphenoxylate-atropine 2.5 1 tab PO QID PRN Diarrhea 02/02/19 03/01/23 History mg-0.025 mg tablet (Lomotil) ferrous sulfate 325 mg (65 mg 325 mg PO BID 02/02/19 03/01/23 History iron) tablet,delayed release furosemide 20 mg tablet 20 mg PO QAM 02/02/19 03/01/23 History hydrocodone 7.5 mg-acetaminophen 1 tab PO Q8H PRN Pain 02/02/19 03/01/23 History 325 mg tablet magnesium oxide 800 mg PO BID 02/02/19 03/01/23 History metformin 850 mg tablet 850 mg PO BID 02/02/19 03/01/23 History metoprolol succinate 100 mg 100 mg PO QAM 02/02/19 03/01/23 History tablet,extended release 24 hr tpcrltmc-kkkmvopr-ntcew acid 400 1 tab PO QPM 02/02/19 03/01/23 History mcg-vit K 20 mcg-lycop 300 mcg tablet (One-A-Day Men's Multivitamin) nitroglycerin 0.4 mg sublingual 0.4 mg sublingual UD PRN Angina 02/02/19 03/01/23 History tablet tamsulosin 0.4 mg capsule 0.4 mg PO HS 02/02/19 03/01/23 History triamcinolone acetonide 0.1 % 1 applic topical BID PRN Rash 02/02/19 03/01/23 History topical cream famotidine 20 mg tablet (Pepcid) 20 mg PO BID 09/23/20 03/01/23 History ondansetron 8 mg disintegrating 8 mg PO Q12H PRN Nausea 02/19/21 03/01/23 History tablet isosorbide mononitrate 60 mg 60 mg PO QAM 11/25/22 03/01/23 History tablet,extended release 24 hr albuterol sulfate 90 mcg/actuation 2 puff inhalation TID 03/01/23 03/01/23 History aerosol inhaler (Proventil HFA) glipizide 10 mg tablet, extended 20 mg PO DAILY 03/01/23 03/01/23 History release 24 hr levothyroxine 200 mcg tablet 200 mcg PO QAM 03/01/23 03/01/23 History levothyroxine 25 mcg tablet 25 mcg PO DAILYBB 03/01/23 03/01/23 History losartan 25 mg tablet 25 mg PO DAILY 03/01/23 03/01/23 History metoclopramide HCl 10 mg tablet 10 mg PO DAILY 03/01/23 03/01/23 History pantoprazole 40 mg tablet,delayed 40 mg PO QAM 03/01/23 03/01/23 History release semaglutide 1 mg/dose (4 mg/3 mL) 1 mg subcut .Q WED 03/01/23 03/01/23 History subcutaneous pen injector (Ozempic) spironolactone 50 mg tablet 50 mg PO QAM 03/01/23 03/01/23 History torsemide 20 mg tablet 40 mg PO DAILY 03/01/23 03/01/23 History Patient History Medical History (Updated 03/02/23 @ 11:21 by Josefina Franco MD, PhD) CKD (chronic kidney disease) stage 3, GFR 30-59 ml/min Chronic systolic heart failure PAF (paroxysmal atrial fibrillation) Marginal zone lymphoma dx 12/2020, no chemo or radiation, only gets infusion of antibodies and plasma, and iron infusion weekly, [facility] oncology Congestive heart failure Heart attack 1996, [facility]-flown to [facility], had cath no stents>pursued medication route vs. bypass route 05/2020, [facility]. heart cath, no stents at that time. "weak muscle on the bottom right side" follows with Dr Lewis ([facility] Cardiology) Osteoarthritis Chronic back pain Kidney stones hx Cirrhosis Hypothyroidism Diabetes mellitus, type 2 On anticoagulant therapy eliquis daily>as of 12/2022, medication on hold Hypertension Hyperlipidemia Myocardial Infarction x3--1988/1996/--follows with [facility], [facility], [facility]-flown to [facility], had cath no stents>pursued medication route vs. bypass route 2003-[facility] for cardiac cath, no stents 2005, [facility] for cardiac cath, x2 stents Surgical History History of surgical removal of ganglion cyst left hand Status post trigger finger release x2--1 on each hand History of carpal tunnel release of both wrists History of thoracic spinal fusion x2 History of lumbar spinal fusion x2 History of fusion of cervical spine normal ROM History of left shoulder replacement History of total left hip replacement History of arthroscopy of left knee x3 History of nephrolithotomy with removal of calculi x2 History of cystoscopy x2 Hx of transurethral resection of prostate Status post biopsy of kidney normal History of right inguinal hernia repair History of colonoscopy History of esophagogastroduodenoscopy (EGD) History of cholecystectomy History of tooth extraction all top teeth removed History of wisdom tooth extraction History of heart artery stent x2 [place] [facility] [place] of cardiac cath 1996, no stents; x2; 2003 (no stents); 2005-2 stents; 05/2020-no stents>all done [facility] [place] of [place] [facility] [place]felt [place]" [place] cath>had bypass Family History Mother Family history of diabetes mellitus Father Family history of diabetes mellitus Brother Family history of diabetes mellitus Family hx of colon cancer Family hx colonic polyps Sister Family history of diabetes mellitus Brother Family history of diabetes mellitus Family hx of colon cancer Family hx colonic polyps Brother Family history of diabetes mellitus Sister Family history of diabetes mellitus Sister Family history of diabetes mellitus Sister Family history of diabetes mellitus Grandfather (Maternal) Family history of diabetes mellitus Grandfather (Paternal) Family history of diabetes mellitus Grandmother (Paternal) Family history of diabetes mellitus Grandmother (Maternal) Family history of diabetes mellitus Other No family history of adverse response to anesthesia Social History Smoking Status: Never smoker Second Hand Exposure: No; Do You Dip or Chew Tobacco: No; Hx Alcohol Use: No Hx Substance Use: No Preferred Language: Jamaican Communication Ability: Effective Hat Marker Required: No Beliefs That Will Affect Care: None Current Living Situation: Spouse Other Information That Helps Us Care for You: No Feels Safe at Home: Yes Safety Concerns: Feels Safe At This Time Assistive Devices: Cane, Stair Lift and Walker Review of Systems 2 Review of Systems: All systems reviewed & are unremarkable except as noted in HPI & below Physical Exam 2 Constitutional: well developed, + acute distress, + thin, + frail appearing and cooperative up in chair on RA Eyes: EOM intact bilaterally ENMT: Ears: no external ear abnormality Nose: no external nose abnormality Mouth: + dry oral mucous membranes Neck: no nuchal rigidity Respiratory: normal respiratory effort Auscultation: + diminished lung sounds Cardiovascular: Rate/Rhythm: regular rate and regular rhythm Extremities: + edema (2+ below the knee edema) Gastrointestinal (Abdomen): Inspection/Auscultation: normal bowel sounds P ercussion/Palpation: abdomen soft, + ascites, + dullness to percussion and + fluid wave; abdomen nontender Musculoskeletal: Extremities: strength 5/5 throughout Skin: no rashes, warm and dry Neurologic: pepper, fluent speech, no tremor Results & Data Vital Signs (Past 12 Hours) Vital Signs Temp Pulse Resp BP Pulse Ox 03/02/23 09:40 36.3 C L 100 H 18 93/50 L 100 03/02/23 09:28 103 H 18 108/66 96 03/02/23 08:28 36.2 C L 107 H 18 122/76 95 03/02/23 07:28 36.7 C 110 H 18 110/65 94 03/02/23 06:58 36.5 C 101 H 18 100/59 L 98 03/02/23 06:43 36.7 C 90 18 91/51 L 95 03/02/23 06:21 36.6 C 96 H 18 97/56 L 98 Laboratory Results 03/02/23 03:50 03/02/23 03:50
[2023-03-02] MEDS: cefTRIAXone SODIUM 2,000 MG in DEXTROSE 5 % MINI-B 50 ML IV SCH (11:17)
[2023-03-02] MEDS: PATIROMER CALCIUM SORBITEX 8.4 GM PACK PO SCH (12:11)
[2023-03-02 13:17] LABS: Hemoglobin 7.5 g/dl (14.0-18.0)
[2023-03-02 13:37] LABS: BUN Creatinine Ratio 18.2 (10-20); Creatinine Clr Calc Pharmacy 26.5 ml/min; Est GFR (African American) 29.2 ml/min; Est GFR (Non-African American) 25.2 ml/min; Potassium 5.5 mmol/L (3.5-5.1)
--- NOTE | 2023-03-02 15:45 | Hospitalist Progress Note ---
Date of Service March 02, 2023 Assessment & Plan (1) Acute on chronic anemia: (2) Acute kidney injury superimposed on chronic kidney disease: (3) Acute hyperkalemia: (4) Chronic systolic heart failure: (5) Acute renal failure: (6) Malnutrition: (7) Hyponatremia: (8) PAF (paroxysmal atrial fibrillation): (9) Hypothyroidism: (10) Diabetes mellitus, type 2: (11) Marginal zone lymphoma: (12) Alcoholic cirrhosis of liver with ascites: Plan Pt is an 82yoM with PMHx significant for marginal cell lymphoma, DMII, CAD s/p stent placement, a fib, hypothyroidism, alcoholic cirrhosis admitted with electrolyte abnormalities and worsening ascites. Alcoholic cirrhosis of liver with ascites s/p Diagnostic paracentesis in the ED- no SBP US liver noted cirrhosis with ascites and patent portal veins On Lasix, albumin Holding home spironolactone GI recs- recommending low sodium diet and the following general recs: -No NSAIDs, No ETOH, Less than 2G tylenol if using, Trend MELD labs -EGD in 1-2 years -Continued follow up with hepatology Nephrology recs- appreciate recs for diuretics Anemia requiring transfusion Pt with anemia below 7 requiring transfusion of 1U pRBC on 03/02, repeat hgb 7.5 Suspicious for acute GI bleed, pt with known esophageal varices hemoccult/FOBT pending GI consulted- appreciate recs On pantoprazole 40mg BID Started on prophylactic Rocephin with possible bleed in the setting of cirrhosis Holding home Eliquis and aspirin Per GI, transfuse as needed Continue to monitor hgb with AM labs Acute renal failure Cr elevated above baseline Multifactorial but likely due to low effective arterial volume in setting of worsening ascites and poor PO intake. Hold home losartan and spironolactone Appreciate nephrology recs Hyperkalemia Patient with K about 5 per outpatient record review. After insulin/D50/Ca/Lokelma, repeat K down to 5.6. Hold home losartan and spironolactone Lokelma switched to Veltassa by nephrology Appreciate nephrology recs Hyponatremia Multifactorial including poor PO intake, hypervolemia 2/2 decompensated cirrhosis, recent diuretic therapy Appreciate nephrology recs Marginal zone lymphoma h/o B cell lymphoma Managed by oncology Diabetes mellitus, type 2 A1C per outpatient records is 6.4 (02/08/23) reflecting good control overall. While admitted, cont basal/bolus insulin. Nutrition recommending not resuming home ozempic on d/c Hypothyroidism Recent TSH on 02/22 is 14.90. Recently increased Synthroid to 225mcg by PCP. Cont current dose PCP to adjust as outpatient PAF (paroxysmal atrial fibrillation) on lifelong AC, no bleeding issues reported Holding apixaban in setting of anemia requiring transfusion noted above Malnutrition poor PO intake for 3 months. Nutrition consulted. Nutrition recommending not resuming home ozempic on d/c Diet: low sodium, low potassium, DMII, fluid restrction of 1500ml DVT prophylaxis: Holding home eliquis in setting of anemia requiring transfusion Full Code as confirmed with patient on admission. Admission and Anticipated Discharge Date Admission Date: March 01, 2023 Subjective Pt seen in the AM sitting at bedside. States that he was feeling fine, abdomen still felt tight. Notes that he has been having increasing lower extremity edema. Denied dizziness or SOB. States that he had multiple BMs the day before but none recently. Denies any bloody stools of episodes of coughing up blood Review of Systems Review of Systems: All systems reviewed & are unremarkable except as noted in Subjective Physical Exam Physical Exam: General: Alert, oriented. No acute distress Skin: No noted rashes or bruises Psych: Appropriate mood and affect Neuro: No gross deficits HEENT: NC/AT Chest: Nontender to palpation. CV: RRR Resp: Breath sounds decreased bilaterally, no increased effort of breathing. Abdomen: Distended, firm Extremities: edema in lower extremities bilaterally. Results & Data Results & Data Vital Signs (Past 12 Hours) Vital Signs Temp Pulse Pulse Resp BP BP Pulse Ox 03/02/23 11:35 36.4 C L 82 18 89/52 L 96 03/02/23 09:40 36.3 C L 100 H 18 93/50 L 100 03/02/23 09:28 103 H 18 108/66 96 03/02/23 08:28 36.2 C L 107 H 18 122/76 95 03/02/23 08:00 101 H 03/02/23 07:28 36.7 C 110 H 18 110/65 94 03/02/23 06:58 36.5 C 101 H 18 100/59 L 98 03/02/23 06:43 36.7 C 90 18 91/51 L 95 03/02/23 06:21 36.6 C 96 H 18 97/56 L 98 O2 Del Method 03/02/23 11:35 Room Air 03/02/23 09:40 03/02/23 09:28 03/02/23 08:28 03/02/23 08:00 03/02/23 07:28 03/02/23 06:58 03/02/23 06:43 03/02/23 06:21 (5) Acute renal failure Acute renal failure type: unspecified Qualified Code(s): N17.9 - Acute kidney failure, unspecified
[2023-03-02] MEDS: MIDODRINE HCL 2.5 MG TAB PO SCH (17:35)
[2023-03-02] MEDS: ACETAMINOPHEN 500 MG TAB PO PRN (21:16)
[2023-03-02] MEDS: TAMSULOSIN HCL 0.4 MG CAP PO SCH (21:18)
[2023-03-02] MEDS: ATORVASTATIN 40 MG TAB PO SCH (21:19)
[2023-03-03] MEDS: ALBUMIN 25% 25 GM/100 ML VIAL IV SCH ×2 (02:41→13:49)
[2023-03-03] MEDS: LEVOTHYROXINE SODIUM 25 MCG TABLET PO SCH (06:10)
[2023-03-03] MEDS: LEVOTHYROXINE SODIUM 200 MCG TABLET PO SCH (06:10)
[2023-03-03 07:20] LABS: Hematocrit (blood only) 21.1 % (42.0-52.0); Hemoglobin 6.9 g/dl (14.0-18.0); Mean Corpuscular Hemoglobin 29.1 pg (25.0-34.0); Mean Corpuscular Hgb Conc 32.7 g/dL (32.0-36.0); Mean Platelet Volume 9.3 fL (9.4-12.4); Platelet Count 127 K/uL (130-400); RDW Coefficient of Variation 17.3 % (11.5-14.5); RDW Standard Deviation 55.9 fL (36.4-46.3); Red Blood Count 2.37 M/uL (4.70-6.10); White Blood Count 3.61 K/ul (4.8-10.8)
[2023-03-03 07:24] LABS: Albumin Globulin Ratio 1.8 (0.9-2); Albumin Level 3.5 gm/dl (3.4-5.0); BUN Creatinine Ratio 17.8 (10-20); Bilirubin,Total 0.5 mg/dl (0.2-1.0); Calcium 8.8 mg/dl (8.6-10.3); Creatinine Clr Calc Pharmacy 25.9 ml/min; Est GFR (African American) 29.3 ml/min; Est GFR (Non-African American) 25.3 ml/min; Globulin 1.9 gm/dl (2.5-4.0); Magnesium 1.9 mg/dl (1.7-2.4); Phosphorus 3.8 mg/dl (2.5-4.9); Potassium 5.3 mmol/L (3.5-5.1); Total Protein 5.4 gm/dl (6.0-8.3)
[2023-03-03] MEDS ORDERED: SODIUM CHLORIDE 0.9% 250 ML IV PRN (07:27)
[2023-03-03 07:37] LABS: Basophils # (auto) 0.04 K/uL (0.00-0.20); Basophils % (auto) 1.1 %; Eosinophils # (auto) 0.24 K/uL (0.00-0.50); Eosinophils % (auto) 6.6 %; Immature Granulocytes # (auto) 0.06 K/uL (0.01-0.20); Immature Granulocytes % (auto) 1.7 %; Lymphocytes # (auto) 0.61 K/uL (1.20-3.40); Lymphocytes % (auto) 16.9 %; Monocytes # (auto) 0.47 K/uL (0.11-0.59); Neutrophils # (auto) 2.19 K/uL (1.40-6.50); Neutrophils % (auto) 60.7 %; Poikilocytosis Present
[2023-03-03] MEDS: MIDODRINE HCL 2.5 MG TAB PO SCH ×2 (08:18→13:20)
[2023-03-03] MEDS: HYDROCODONE/ACETAMINOPHEN 7.5/325MG TAB PO PRN (08:18)
[2023-03-03] MEDS: METOCLOPRAMIDE HCL 10 MG TABLET PO SCH (08:19)
[2023-03-03] MEDS: INSULIN ASPART PER UNIT CHARGE SC SCH ×4 (08:19→21:20)
[2023-03-03] MEDS: ISOSORBIDE MONO EXTENDED REL 60 MG TABCR PO SCH (08:19)
[2023-03-03] MEDS: FAMOTIDINE 20 MG TAB PO SCH ×2 (08:19→21:24)
[2023-03-03] MEDS: PANTOprazole 40 MG TAB PO SCH (08:19)
[2023-03-03] MEDS: METOPROLOL SUCC 50MG EXT REL TAB PO SCH (08:20)
--- NOTE | 2023-03-03 08:31 | Communication Note ---
Date of Service: March 03, 2023 Pt was seen and evaluated, chart reviewed. Feeling well. No abd pain, nause, vomiting. Is NPO for EGD evaluation for persistent anemia requiring transfusion. Denies black or bloody stools. Maintain NPO status. Plan for EGD today. We appreciate assistance in the management of any serological abnormality and corrections to include: hemoglobin >7, INR <2, platelets >50,000, potassium levels >3.5 but <5.3, and sodium levels within 5 points of the reference range prior to endoscopic evaluation. The patient required additional transfusion last night without any overt evidence of bleeding. Upper endoscopy has been requested by the internal medicine service given the patient's prior history of esophageal varices and portal hypertensive gastropathy. I did discuss the risks and benefits of the procedure with the patient to include bleeding infection perforation pain need for follow-up studies and the potential for aspiration.
--- NOTE | 2023-03-03 10:19 | Nephrology Progress Note ---
Date of Service March 03, 2023 Assessment & Plan (1) Acute kidney injury superimposed on chronic kidney disease: Plan: stable EDMAR nonoliguric stage 1 on nonproteinuric CKD 3B w/ electrolyte issues as below. progressive ckd in 2022 > baseline in late summer mid . admission creatinine 2.3-2.4 on 03/01 and plateau'd ever since. likely ischemic ATN though HRS, glomerular process also on differential -daily bmp -recommend renal u/s as baseline study > got CT instead and as above -continue IV albumin 48 hrs -lasix as below maintaining SBP best we can (2) Chronic systolic heart failure: Plan: care w/ fluid resuscitation (3) Hyperkalemia: Plan: K 5.3 this am and 6.4 on presentation -continue lasix >low K diet to continue >continue veltassa daily >recheck bmp w/ next hgb check ordered for 1700>> unchanged (4) Hyponatremia: Plan: a/w sNa 122> improved to 126 > 128 clearly hypervolemic hyponatremia >continue FR 1.5 L >had 3 x 10 mg IV lasix w/ little change in sNa >> will give another 10 mg IV x 1 and reeval in AM; trying to preserve sleep goal sNa is no more than 134 for am (5) Acute on chronic anemia: Plan: per primary service and GI transfuse prn Admission and Anticipated Discharge Date Admission Date: March 01, 2023 Subjective hgb down to 6.9 again today; got pRBC 1 unit; also had EGD and varices banded; K aNd Na still a challenge; SBP a bit better after banding; feels abd is less taut; no sob; denies voiding concerns Review of Systems 2 Review of Systems: All systems reviewed & are unremarkable except as noted in Subjective Physical Exam 2 Constitutional: well developed, + acute distress, + thin, + frail appearing and cooperative Eyes: EOM intact bilaterally ENMT: Ears: no external ear abnormality Nose: no external nose abnormality Mouth: + dry oral mucous membranes Neck: no nuchal rigidity Respiratory: normal respiratory effort Auscultation: + diminished lung sounds and + crackles (dependent) Cardiovascular: Rate/Rhythm: regular rate and regular rhythm Extremities: + edema (2+ below the knee edema) Gastrointestinal (Abdomen): Inspection/Auscultation: normal bowel sounds P ercussion/Palpation: abdomen soft, + ascites, + dullness to percussion, + fluid wave and + abdomen firm (less firm today than yesterday); abdomen nontender Musculoskeletal: Extremities: strength 5/5 throughout Skin: no rashes, warm and dry Neurologic: pepper, fluent speech, slight tremor Results & Data Vital Signs (Past 12 Hours) Vital Signs Temp Pulse Pulse Resp BP BP Pulse Ox 03/03/23 09:43 36.6 C 83 20 95/66 L 96 03/03/23 09:12 36.8 C 86 16 90/58 L 96 03/03/23 08:42 36.3 C L 88 18 98/64 L 96 03/03/23 08:27 36.3 C L 86 18 96/63 L 96 03/03/23 08:10 36.3 C L 66 18 96/64 L 96 03/03/23 07:31 36.6 C 75 18 103/69 97 03/03/23 02:59 36.8 C 84 16 99/41 L 95 03/02/23 22:53 36.6 C 81 18 95/60 L 92 O2 Del Method 03/03/23 09:43 03/03/23 09:12 03/03/23 08:42 03/03/23 08:27 03/03/23 08:10 03/03/23 07:31 Room Air 03/03/23 02:59 Room Air 03/02/23 22:53 Room Air Laboratory Results 03/03/23 06:34 03/03/23 06:[address] a/p non con (images reviewed personally) FINDINGS: Bibasilar linear densities consistent with subsegmental atelectasis or scarring. There are trace bilateral pleural effusions. The heart is mildly enlarged. Coronary artery calcifications are noted. There are poststernotomy changes. Trace pericardial effusion. No pneumoperitoneum. No pneumatosis. There is a left total hip arthroplasty. Posterior decompression within the lumbar spine. No acute fractures. Small fluid-filled epigastric hernia. There is a fluid-filled left inguinal hernia. There is mild body wall edema. Moderate to severe ascites. Nodular contour to the liver consistent with cirrhosis. There are are a few scattered calcified granulomas within the liver and spleen. The spleen is mildly enlarged likely representing portal hypertension. Prior cholecystectomy. The unenhanced pancreas and adrenal glands are unremarkable. Bilateral nephrolithiasis. No ureteral stones. No hydronephrosis. Of note, the distal left ureter is not well visualized due to metallic artifact from the left hip prosthesis. Calcified plaque within the normal caliber abdominal aorta. No retroperitoneal or pelvic lymphadenopathy. The bladder is not well visualized but appears unremarkable. Suboptimal evaluation for bowel pathology due to the lack of intravenous and oral contrast. However, there is no definite bowel wall thickening or obstruction. Normal appendix. IMPRESSION: 1. Moderate to large amount of ascites. 2. Cirrhotic liver with splenomegaly consistent with underlying portal hypertension. 3. No definite bowel wall thickening or obstruction. 4. Normal appendix. 5. Additional findings as described above. BL stone burden is small ( 1 stone each side small dimensions; no ureteral stones); ?mildly cystic kidneys
[2023-03-03] MEDS ORDERED: FUROSEMIDE INJ 20 MG/2 ML VIAL IV STA (10:32)
--- NOTE | 2023-03-03 12:00 | Anesthesiology Consultation ---
Date of Service March 03, 2023 Assessment & Plan Chart Review Chart Review: Acceptable Risk for Surgery and Patient NOT seen in Pre Admission Testing Consults Requested none ASA ASA4 Proposed Anesthesia Anesthesia Type: MAC Risk / Benefits Reviewed With: PT / POA / Parent / Guardian, Accepts Plan and Informed Consent Obtained Additional Comments: Patient scheduled for EGD for anemia s/p blood transfusionx2. Patient has history of cirrhosis with ascites and h/o varices. No recent or active hematemesis or nausea. Patient did have abdominal paracentesis in ED with some improvement but abdomen still swollen. Patient does not feel his breathing is worse than his baseline. Patient also has CHF with rEF 30-35%. He has leg swelling which has been decreasing with latex. Will proceed with MAC anesthesia. History Surgery Operation Date: 03/03/23 16:30 Proposed Procedures p Esophagogastroduodenoscopy Dr Juan Martinez, DO Height/Weight Height: 5 ft 6 in Weight: 92.2 kg Allergies Allergy/AdvReac Type Severity Reaction Status Date / Time Iodinated Contrast Media Allergy Severe IVP DYE = Verified 03/01/23 15:34 ANAPHYLAXIS lisinopril AdvReac Cough Verified 03/01/23 15:34 Medications Home Medications Medication Instructions Recorded Confirmed Last Taken acetaminophen 325 mg tablet 325 mg PO Q6H PRN Pain 02/02/19 03/01/23 02/24/21 (Tylenol) amoxicillin 500 mg tablet 2,000 mg PO UD PRN prior to dental 02/02/19 03/01/23 02/24/21 procedures apixaban 5 mg tablet (Eliquis) 2.5 mg PO BID 02/02/19 03/01/23 02/28/23 aspirin 81 mg tablet,delayed 81 mg PO QAM 02/02/19 03/01/23 01/07/23 release (Sharita Low Dose Aspirin) atorvastatin 80 mg tablet 80 mg PO QPM 02/02/19 03/01/23 01/11/23 diphenoxylate-atropine 2.5 1 tab PO QID PRN Diarrhea 02/02/19 03/01/23 09/24/20 09:00 mg-0.025 mg tablet (Lomotil) ferrous sulfate 325 mg (65 mg 325 mg PO BID 02/02/19 03/01/23 02/24/21 iron) tablet,delayed release furosemide 20 mg tablet 20 mg PO QAM 02/02/19 03/01/23 01/11/23 hydrocodone 7.5 mg-acetaminophen 1 tab PO Q8H PRN Pain 02/02/19 03/01/23 01/11/23 325 mg tablet magnesium oxide 800 mg PO BID 02/02/19 03/01/23 01/11/23 metformin 850 mg tablet 850 mg PO BID 02/02/19 03/01/23 01/11/23 metoprolol succinate 100 mg 100 mg PO QAM 02/02/19 03/01/23 01/12/23 05:30 tablet,extended release 24 hr jtqceqdi-ihlnqonu-nache acid 400 1 tab PO QPM 02/02/19 03/01/23 01/11/23 mcg-vit K 20 mcg-lycop 300 mcg tablet (One-A-Day Men's Multivitamin) nitroglycerin 0.4 mg sublingual 0.4 mg sublingual UD PRN Angina 02/02/19 03/01/23 01/12/23 07:30 tablet tamsulosin 0.4 mg capsule 0.4 mg PO HS 02/02/19 03/01/23 01/11/23 triamcinolone acetonide 0.1 % 1 applic topical BID PRN Rash 02/02/19 03/01/23 10/17/18 topical cream famotidine 20 mg tablet (Pepcid) 20 mg PO BID 09/23/20 03/01/23 01/12/23 05:30 ondansetron 8 mg disintegrating 8 mg PO Q12H PRN Nausea 02/19/21 03/01/23 Unknown tablet isosorbide mononitrate 60 mg 60 mg PO QAM 11/25/22 03/01/23 01/12/23 05:30 tablet,extended release 24 hr albuterol sulfate 90 mcg/actuation 2 puff inhalation TID 03/01/23 03/01/23 Unknown aerosol inhaler (Proventil HFA) glipizide 10 mg tablet, extended 20 mg PO DAILY 03/01/23 03/01/23 Unknown release 24 hr levothyroxine 200 mcg tablet 200 mcg PO QAM 03/01/23 03/01/23 Unknown levothyroxine 25 mcg tablet 25 mcg PO DAILYBB 03/01/23 03/01/23 Unknown losartan 25 mg tablet 25 mg PO DAILY 03/01/23 03/01/23 Unknown metoclopramide HCl 10 mg tablet 10 mg PO DAILY 03/01/23 03/01/23 Unknown pantoprazole 40 mg tablet,delayed 40 mg PO QAM 03/01/23 03/01/23 Unknown release semaglutide 1 mg/dose (4 mg/3 mL) 1 mg subcut .Q WED 03/01/23 03/01/23 Unknown subcutaneous pen injector (Ozempic) spironolactone 50 mg tablet 50 mg PO QAM 03/01/23 03/01/23 Unknown torsemide 20 mg tablet 40 mg PO DAILY 03/01/23 03/01/23 Unknown Active Medications Generic Name Dose Route Start Last Admin Trade Name Freq PRN Reason Stop Dose Admin Acetaminophen 500 mg 03/01/23 18:25 03/02/23 21:16 Acetaminophen 500 Mg Tab PO 03/31/23 18:24 500 mg Q4H PRN Administration Pain or Fever Hydrocodone Bitart/Acetaminophen 1 tab 03/01/23 16:46 03/03/23 08:18 Hydrocodone/Acetaminophen 7.5/325mg Tab PO 03/15/23 16:45 1 tab Q8H PRN Administration Pain Apixaban 2.5 mg 03/01/23 21:00 03/01/23 20:43 Apixaban 2.5 Mg Tab PO 03/31/23 20:59 2.5 mg BID ANGIE Administration Atorvastatin Calcium 80 mg 03/01/23 21:00 03/02/23 21:19 Atorvastatin 40 Mg Tab PO 03/31/23 20:59 80 mg QPM ANGIE Administration Famotidine 20 mg 03/01/23 21:00 03/03/23 08:19 Famotidine 20 Mg Tab PO 03/31/23 20:59 20 mg BID ANGIE Administration Albumin Human 25 gm in 100 mls @ 50 mls/hr 03/01/23 18:30 03/03/23 04:43 Albumin 25% IV 03/03/23 12:29 Infused Q8H ANGIE Infusion Ceftriaxone Sodium 2,000 mg/ 50 mls @ 100 mls/hr 03/02/23 10:00 03/02/23 12:30 Dextrose IV 03/12/23 09:59 Infused Q24H ANGIE Infusion Protocol Insulin Aspart 0 units 03/01/23 21:00 03/03/23 08:19 Insulin Aspart Per Unit Charge SC 03/31/23 20:59 Not Given ACHS ANGIE Isosorbide Mononitrate 60 mg 03/02/23 09:00 03/03/23 08:19 Isosorbide Wake Extended Rel 60 Mg Tabcr PO 04/01/23 08:59 60 mg QAM ANGIE Administration Levothyroxine Sodium 200 mcg 03/02/23 06:30 03/03/23 06:10 Levothyroxine Sodium 200 Mcg Tablet PO 04/01/23 06:29 200 mcg DAILYBB ANGIE Administration Levothyroxine Sodium 25 mcg 03/02/23 06:30 03/03/23 06:10 Levothyroxine Sodium 25 Mcg Tablet PO 04/01/23 06:29 25 mcg DAILYBB ANGIE Administration Metoclopramide HCl 10 mg 03/02/23 09:00 03/03/23 08:19 Metoclopramide Hcl 10 Mg Tablet PO 04/01/23 08:59 10 mg DAILY ANGIE Administration Metoprolol Succinate 100 mg 03/02/23 09:00 03/03/23 08:20 Metoprolol Succ 50mg Ext Rel Tab PO 04/01/23 08:59 Not Given QAM ANGIE Midodrine 5 mg 03/02/23 17:00 03/03/23 08:18 Midodrine Hcl 2.5 Mg Tab PO 04/01/23 16:59 5 mg TID@0800,1200,1700 ANGIE Administration Miscellaneous 15 - 30 gm 03/01/23 18:25 03/02/23 04:54 Carbohydrates For Hypoglycemia PO 03/31/23 18:24 30 gm UD PRN Administration Hypoglycemia Protocol Pantoprazole Sodium 40 mg 03/02/23 09:00 03/03/23 08:19 Pantoprazole 40 Mg Tab PO 04/01/23 08:59 40 mg BID ANGIE Administration Patiromer 8.4 gm 03/02/23 12:00 03/02/23 12:11 Patiromer Calcium Sorbitex 8.4 Gm Pack PO 04/01/23 11:59 8.4 gm DAILY@1200 ANGIE Administration Tamsulosin HCl 0.4 mg 03/01/23 21:00 03/02/23 21:18 Tamsulosin Hcl 0.4 Mg Cap PO 03/31/23 20:59 0.4 mg HS ANGIE Administration NPO Date Last Intake of Fluids: 03/02/23 Time Last Intake of Fluids: 21:00 Date Last Intake of Solids: 03/02/23 Past Medical History Medical History CKD (chronic kidney disease) stage 3, GFR 30-59 ml/min Chronic systolic heart failure PAF (paroxysmal atrial fibrillation) Marginal zone lymphoma dx 12/2020, no chemo or radiation, only gets infusion of antibodies and plasma, and iron infusion weekly, [facility] oncology Congestive heart failure Heart attack 1996, [facility]-flown to [facility], had cath no stents>pursued medication route vs. bypass route 05/2020, [facility]. heart cath, no stents at that time. 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 bypass route 2003-[facility] for cardiac cath, no stents [facility] for cardiac cath, x2 stents Past Family History Family History Mother Family history of diabetes mellitus Father Family history of diabetes mellitus Brother Family history of diabetes mellitus Family hx of colon cancer Family hx colonic polyps Sister Family history of diabetes mellitus Brother Family history of diabetes mellitus Family hx of colon cancer Family hx colonic polyps Brother Family history of diabetes mellitus Sister Family history of diabetes mellitus Sister Family history of diabetes mellitus Sister Family history of diabetes mellitus Grandfather (Maternal) Family history of diabetes mellitus Grandfather (Paternal) Family history of diabetes mellitus Grandmother (Paternal) Family history of diabetes mellitus Grandmother (Maternal) Family history of diabetes mellitus Other No family history of adverse response to anesthesia Past Surgical History Surgical History History of surgical removal of ganglion cyst left hand Status post trigger finger release x2--1 on each hand History of carpal tunnel release of both wrists History of thoracic spinal fusion x2 History of lumbar spinal fusion x2 History of fusion of cervical spine normal ROM History of left shoulder replacement History of total left hip replacement History of arthroscopy of left knee x3 History of nephrolithotomy with removal of calculi x2 History of cystoscopy x2 Hx of transurethral resection of prostate Status post biopsy of kidney normal History of right inguinal hernia repair History of colonoscopy History of esophagogastroduodenoscopy (EGD) History of cholecystectomy History of tooth extraction all top teeth removed History of wisdom tooth extraction History of heart artery stent x2 stents placed 2005 @ [facility] [place] History of cardiac cath 1996, no stents; x2; 2003 (no stents); 2005-2 stents; 05/2020-no stents>all done [facility] History of quadruple bypass 2003 @ [facility] [place], "felt off" had cath>had bypass Past Anesthesia History No Hx of Anesthesia Complications and No Family Hx of Anesthesia Complications Social History Smoking Status: Never smoker Do You Dip or Chew Tobacco: No Hx Alcohol Use: No Hx Substance Use: No substance use type: does not use Review of Systems ROS Unobtainable: All systems reviewed & are unremarkable except as noted in HPI & below Physical Exam Vital Signs Last Vital Signs Temp 36.1 C L 03/03/23 11:38 Pulse 90 03/03/23 11:38 Resp 18 03/03/23 11:38 BP 105/67 03/03/23 11:38 Pulse Ox 95 03/03/23 11:38 O2 Del Method Room Air 03/03/23 11:38 Constitutional no acute distress ENMT Mouth: no TMJ abnormality Thyromental Distance: > or= 3.5 Finger Breadths Mallampati Class: II Neck normal visual inspection and trachea midline; neck extension not limited Respiratory normal respiratory effort Auscultation: lungs clear to auscultation bilaterally Cardiovascular Rate/Rhythm: regular rate and regular rhythm Heart Sounds: no murmur Musculoskeletal Spine: normal cervical ROM Extremities: full ROM of extremities Neurologic moves all extremities Psychiatric Orientation: alert and oriented x 3 Testing Laboratory Results 03/03/23 06:34 03/03/23 06:34 PT 13.7 Seconds (9.0-12.0) H 03/01/23 12:03 INR 1.3 (0.9-1.1) H 03/01/23 12:03 APTT 31.8 Seconds (21.0-31.0) H 03/01/23 12:03 Blood Type O Positive 03/01/23 12:03 Antibody Screen NEGATIVE 03/01/23 12:03 03/01/23 15:48 Gram Stain - Final Peritoneal Fluid Aerobic and Anaerobic Culture - Preliminary No growth to date. 03/03/23 03/03/23 10:57 07:06 POC Glucose 151 H 121 H
[2023-03-03] MEDS ORDERED: STAT IV/IM STA (12:19)
[2023-03-03] MEDS ORDERED: OCTREOTIDE ACETATE 100 MCG/ML VIAL SQ STA ×2 (12:22→12:37)
[2023-03-03] MEDS ORDERED: BENZOCAINE/TETRACAIN/BUTAM 50 APPLN/5 GM CAN EXT ONE (12:23)
[2023-03-03] MEDS ORDERED: PROPOFOL IV EMULSION 10 MG/ML 20 ML VIAL IV ONE (12:23)
[2023-03-03] MEDS ORDERED: LIDOCAINE 2% 2 ML VIAL/AMP(20MG/ML) INFIL ONE (12:23)
--- NOTE | 2023-03-03 12:30 | GI REPORT ---
Patient Name: Kenton Mccormick Procedure Date: 03/03/2023 11:56 AM Date of : 1940 Admit Type: Inpatient Age: 82 Gender: Male Attending MD: Lizbeth Martinez DO, Procedure: Upper GI endoscopy Providers: Lizbeth Martinez DO Referring MD: Herb Acevedo Md Indications: Iron deficiency anemia secondary to chronic blood loss Medicines: Monitored Anesthesia Care Complications: No immediate complications. Estimated blood loss: Minimal. Estimated Blood Loss: Estimated blood loss was minimal. Procedure: Pre-Anesthesia Assessment: - Prior to the procedure, a History and Physical was performed, and patient medications, allergies and sensitivities were reviewed. The patient's tolerance of previous anesthesia was reviewed. - The risks and benefits of the procedure and the sedation options and risks were discussed with the patient. All questions were answered and informed consent was obtained. - Patient identification and proposed procedure were verified prior to the procedure by the physician, the nurse and the health services information specialist. The procedure was verified in the procedure room. - Pre-procedure physical examination revealed no contraindications to sedation. - ASA Grade Assessment: III - A patient with severe systemic disease. - After reviewing the risks and benefits, the patient was deemed in satisfactory condition to undergo the procedure. - The anesthesia plan was to use monitored anesthesia care (MAC). - Immediately prior to administration of medications, the patient was re-assessed for adequacy to receive sedatives. - The heart rate, respiratory rate, oxygen saturations, blood pressure, adequacy of pulmonary ventilation, and response to care were monitored throughout the procedure. - The physical status of the patient was re-assessed after the procedure. After obtaining informed consent, the endoscope was passed under direct vision. Throughout the procedure, the patient's blood pressure, pulse, and oxygen saturations were monitored continuously. The Endoscope was introduced through the mouth, and advanced to the third part of duodenum. The upper GI endoscopy was accomplished without difficulty. The patient tolerated the procedure well. Findings: Three columns of grade III varices with stigmata of recent bleeding were found in the lower third of the esophagus, 31 to 39 cm from the incisors. They were 6 mm in largest diameter. Red juli signs were present. Three bands were successfully placed with incomplete eradication of varices. There was no bleeding during and at the end of the procedure. Moderate portal hypertensive gastropathy was found in the entire examined stomach. The examined duodenum was normal. Impression: - Grade III esophageal varices with stigmata of recent bleeding. Incompletely eradicated. Banded. - Portal hypertensive gastropathy. - Normal examined duodenum. - No specimens collected. Recommendation: - [facility]. - Full liquid diet for 3 days. - Use Protonix (pantoprazole) 40 mg PO daily for 6 weeks. - Administer an IV bolus of 50 micrograms of octreotide followed by an infusion of 50 micrograms per hour for 3 days. - Repeat upper endoscopy in 6 weeks for retreatment. - Use broad spectrum antibiotics until discharge. Lizbeth Martinez D.O. Lizbeth Martinez, DO 03/03/2023 12:30:28 PM This report has been signed electronically. Note Initiated On: 03/03/2023 11:56 AM Number of Addenda: 0 I attest to the content of the Intraoperative Record and orders documented therein, exceptions below {[id number]}
[2023-03-03] MEDS: cefTRIAXone SODIUM 2,000 MG in DEXTROSE 5 % MINI-B 50 ML IV SCH (13:08)
[2023-03-03] MEDS: FUROSEMIDE INJ 20 MG/2 ML VIAL IV SCH ×2 (13:08→16:08)
[2023-03-03] MEDS: OCTREOTIDE ACETATE 500 MCG in 0.9 % SODIUM CHLORIDE 100 ML IV SCH ×2 (13:09→21:22)
--- NOTE | 2023-03-03 13:20 | Anesthesiology Progress Note ---
Date of Service March 03, 2023 Anesthesia Post Procedure Vital Signs Vital Signs: Temp Pulse Pulse Resp BP BP Pulse Ox 03/03/23 12:53 72 18 98/67 L 93 03/03/23 12:39 80 16 100/69 94 03/03/23 12:23 80 16 97/66 L 96 03/03/23 11:38 36.1 C L 90 18 105/67 95 03/03/23 11:21 36.4 C L 83 20 96/67 L 94 03/03/23 10:40 36.6 C 68 16 106/68 96 03/03/23 10:12 36.6 C 81 16 101/68 95 03/03/23 09:43 36.6 C 83 20 95/66 L 96 03/03/23 09:12 36.8 C 86 16 90/58 L 96 03/03/23 08:42 36.3 C L 88 18 98/64 L 96 03/03/23 08:27 36.3 C L 86 18 96/63 L 96 03/03/23 08:10 36.3 C L 66 18 96/64 L 96 03/03/23 07:31 36.6 C 75 18 103/69 97 03/03/23 02:59 36.8 C 84 16 99/41 L 95 03/02/23 22:53 36.6 C 81 18 95/60 L 92 03/02/23 22:17 80 03/02/23 19:27 36.7 C 95 H 18 92/59 L 95 03/02/23 15:46 36.7 C 80 18 103/67 99 O2 Del Method 03/03/23 12:53 Room Air 03/03/23 12:39 Room Air 03/03/23 12:23 Room Air 03/03/23 11:38 Room Air 03/03/23 11:21 Room Air 03/03/23 10:40 03/03/23 10:12 03/03/23 09:43 03/03/23 09:12 03/03/23 08:42 03/03/23 08:27 03/03/23 08:10 03/03/23 07:31 Room Air 03/03/23 02:59 Room Air 03/02/23 22:53 Room Air 03/02/23 22:17 03/02/23 19:27 Room Air 03/02/23 15:46 Room Air Pain Intensity Medial Abdomen: Pain Intensity: 8 Transfer of Care Handoff Completed per policy Notes Mental Status: alert / awake / arousable Patient Amnestic to Procedure: Yes Nausea / Vomiting: adequately controlled Pain: adequately controlled Airway Patency, RR, SpO2: stable & adequate BP & HR: stable & adequate Hydration State: stable & adequate Anesthetic Complications: no major complications apparent and Pt Satisfied with anesthetic care
--- OUTSIDE RECORDS SUMMARY | 2023-03-03 14:34 | External Medical Summary | Summary of Care ---
Author Name Unknown Organization [facility] Address [address] [place] [address] Phone [phone] Care Team Providers Care Mill Tender Second Operator Name Role Phone Juan J Garcia MD Primary Care Provider [phone] Reason for Visit * Reason Onset Date Comments Information 03/01/2023 Encounter Details Date Type Department Care Team (Late st Contact Info) Description 03/01/2023 Telephone Hematology/Oncology Treatment, [address] [address] Herb Acevedo MD [address] [place] [phone] Information Allergies Active Allergy Reactions Criticality Noted Date Comments Ivp Dye Edema airway,Edema face/lips/tongue,Edema Other High 10/05/2000 "swelling" Lisinopril Cough High 06/18/2019 documented as of this encounter (statuses as of 03/01/2023) Medications Medication Sig Dispensed Refills Start Date End Date Status ferrous sulfate (FEOSOL) 325 (65 FE) MG TabletIndications:Ir on deficiency anemia TAKE 1 TABLET BY MOUTH TWICE DAILY 60 Tab 11 03/19/2016 Active Magnesium Oxide 400 MG TabletIndications:Hy pomagnesemia Take 2 Tabs by mouth 2 times a day. 180 Tab 3 09/29/2016 Active Acetaminophen 325 MG Oral Capsule Take 325 mg by mouth every 6 hours as needed. 0 Active aspirin 81 MG chewable tablet Take 1 Tablet by mouth in the morning. 30 Tab 3 01/30/2018 Active Multiple Vitamins-Minerals (CENTRUM SILVER ADULT 50+) Tablet Take 1 Tablet by mouth in the morning. 0 Active triamcinolone acetonide (ARISTOCORT) 0.1 % creamIndications:Bo h and nonspecific skin eruption Apply topically to affected area 2 times a day. 30 g 1 11/21/2019 Active Ondansetron HCl 8 MG Oral Tablet (Zofran)Indications: Nausea and vomiting, intractability of vomiting not specified, unspecified vomiting type Take by mouth 1 Tablet every 8 hours as needed for Nausea. 30 Tablet 1 07/31/2021 Active Losartan Potassium 25 MG Oral Tablet (Cozaar)Indications: HTN, goal below 140/90 Take 1 Tablet (25 mg) by mouth in the morning. 90 Tablet 5 03/29/2022 Active FreeStyle Joelle 2 Sensor use to check blood sugars 4 times a day DX E 11.9 7 Each 3 04/27/2022 Active Potassium Chloride Marylou ER 20 MEQ Oral Tablet Extended Release TAKE 1 TABLET BY MOUTH ONCE DAILY 90 Tablet 2 04/29/2022 Active Additional Information Patient not taking.Reported on 01/25/2023 Metoprolol Succinate ER 100 MG Oral Tablet Extended Release 24 Hour (toPROL XL) TAKE 1 TABLET BY MOUTH ONCE DAILY 90 Tablet 3 05/11/2022 Active Proventil HFA 108 (90 Base) MCG/ACT Inhalation Aerosol SolutionIndications: Chest tightness Inhale 2 Puffs by mouth in the morning and 2 Puffs at noon and 2 Puffs in the evening and 2 Puffs before bedtime. 18 g 0 06/01/2022 Active Ozempic (1 MG/DOSE) 4 MG/3ML Subcutaneous Solution Pen-injector (Semaglutide (1 MG/DOSE)) Inject 1 mg under the skin once a week. E11.9 9 mL 2 07/14/2022 Active Isosorbide Mononitrate ER 60 MG Oral Tablet Extended Release 24 Hour (Imdur)Indications:S /P CABG x 4 Take 1 Tablet by mouth in the morning. 90 Tablet 1 09/03/2022 Active Atorvastatin Calcium 80 MG Oral Tablet (Lipitor)Indications :Atherosclerosis of [place] coronary artery of [place] heart without angina pectoris Take 1 Tablet by mouth every afternoon. 90 Tablet 3 10/02/2022 Active Lactulose 10 GM/15ML Oral Solution (Constulose) Take 30 mL by mouth in the morning and 30 mL at noon and 30 mL before bedtime. 240 mL 0 10/20/2022 Active Additional Information Patient not taking.Reported on 02/08/2023 Spironolactone 50 MG Oral Tablet (Aldactone)Indicatio ns:Cirrhosis of liver with ascites, unspecified hepatic cirrhosis type TAKE ONE TABLET BY MOUTH EVERY MORNING 90 Tablet 3 11/20/2022 Active Tamsulosin HCl 0.4 MG Oral Capsule (Flomax) TAKE 1 CAPSULE BY MOUTH ONCE DAILY 90 Capsule 1 11/28/2022 Active metFORMIN HCl 850 MG Oral Tablet (Glucophage)Indicati ons:Type 2 diabetes mellitus with hemoglobin A1c goal of less than 7.0% (HCC) Take 1 Tablet by mouth 2 times a day with morning and evening meals. DOSE REDUCTION 180 Tablet 3 11/29/2022 Active Famotidine 20 MG Oral Tablet (Pepcid)Indications: Gastroesophageal reflux disease, unspecified whether esophagitis present Take 1 Tablet by mouth in the morning and 1 Tablet before bedtime. 180 Tablet 3 01/06/2023 Active Levothyroxine Sodium 200 MCG Oral Tablet (Levoxyl)Indications :Hypothyroidism due to acquired atrophy of thyroid Take 1 Tablet by mouth in the morning. (at least 30 min prior to breakfast or other meds). 90 Tablet 1 01/13/2023 Active glipiZIDE ER 10 MG Oral Tablet Extended Release 24 Hour (Glucotrol XL) TAKE TWO TABLETS BY MOUTH ONCE DAILY 180 Tablet 1 01/18/2023 Active Diphenoxylate-Atropi ne 2.5-0.025 MG Oral Tablet (Lomotil)Indications :Diarrhea, unspecified type TAKE ONE TABLET BY MOUTH FOUR TIMES DAILY as needed for diarrhea 40 Tablet 0 02/09/2023 Active FreeStyle Joelle 2 Radnor Device use as directed to test blood sugars 4 times daily - DX E11.9 - please use discount card, Radnor damaged 1 Each 2 02/08/2023 Active Nitroglycerin 0.4 MG Sublingual Tablet Sublingual (Nitrostat) DISSOLVE 1 TABLET UNDER THE TONGUE EVERY 5 MINUTES NEEDED FOR CHEST PAIN/PRESSURE. MAY REPEAT TWICE THEN SEEK HELP 25 Tablet 3 02/11/2023 Active Pantoprazole Sodium 40 MG Oral Tablet Delayed Release (Protonix)Indication s:Gastroesophageal reflux disease without esophagitis TAKE ONE TABLET BY MOUTH EVERY MORNING 90 Tablet 1 02/11/2023 Active Metoclopramide HCl 10 MG Oral Tablet (Reglan) One tablet once a day before bedtime 30 Tablet 0 02/11/2023 Active HYDROcodone-Acetamin ophen 7.5-325 MG Oral TabletIndications:Hi story of back surgery Take 1 Tablet by mouth every 8 hours as needed for Pain, Severe. 90 Tablet 0 02/17/2023 Active Levothyroxine Sodium 25 MCG Oral Tablet (Levoxyl) Take 1 Tablet by mouth in the morning. (at least 30 min prior to breakfast or other meds). Take with 200mcg tablet for total daily dose of 225mcg.. 30 Tablet 5 02/17/2023 Active Apixaban 2.5 MG Oral Tablet (Eliquis)Indications :Paroxysmal atrial fibrillation (HCC) Take 1 Tablet by mouth in the morning and 1 Tablet before bedtime. 0 02/24/2023 Active Torsemide 20 MG Oral Tablet (Demadex) Take 2 Tablets by mouth in the morning. 180 Tablet 3 03/01/2023 Active documented as of this encounter (statuses as of 03/01/2023) Active Problems Problem Noted Date Diagnosed Date Chronic kidney disease, stage 3a 01/24/2023 Overview: Per CKD protocol Iron deficiency anemia 04/08/2022 Refractory cytopenia with multilineage dysplasia 01/12/2021 Low grade B cell lymphoproliferative disorder Esophageal varices 05/15/2019 Hypertensive heart disease w ith systolic congestive heart failure 01/15/2019 Old myocardial infarct 12/21/2018 Type 2 diabetes mellitus wit h target hemoglobin A1c of less than 8.0 percent 01/30/2018 Paroxysmal atrial fibrillation 06/13/2017 Heart failure, systolic, due to CAD 12/07/2016 HTN, goal below 140/90 06/23/2015 Overview: Per HTN Protocol #27. Hypothyroidism due to acquired atrophy of thyroi d 02/10/2015 S/P CABG x 4 09/17/2013 Cirrhosis of liver 01/09/2013 MEDICATION USE AGREEMENT 03/14/2012 Thyroid nodule 11/08/2011 Iron deficiency anemia 11/24/2010 ADVANCE DIRECTIVE INFORMATION 01/11/2005 Overview: No, Advance Directive brochure given to patient. BPH without obstruction/lower urinary tract symp toms 12/30/2003 CORONARY ATHEROSCLER. 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 resolve Thrombocytopenia 06/13/2017 05/17/2019 Type 2 diabetes mellitus wit h target hemoglobin A1c of less than 7.5 percent 09/29/2016 01/30/2018 [employer] Other*[id number] 08/05/2016 08/05/2016 Other seborrheic keratosis 01/31/2014 1 [employer] Other*[id number] 07/23/2013 05/25/2016 Overview: Study Title: Genomic Markers for Patients with Cardiovascular Disease Project # [id number] Senior Administrative Support: Chantel Dorantes MD [phone] Severe obesity with body mas s index (BMI) of 35.0 to 39.9 with serious comorbidity 01/09/2013 Overview: ICD-10 update of inactive diagnosis Cholelithiasis 09/19/2012 11/15/2016 Abdominal pain 09/19/2012 12/21/2018 Gallbladder polyp 09/19/2012 11/15/2016 Type 2 diabetes mellitus wit h hemoglobin A1c goal of 7.0%-8.0% 03/14/2012 09/29/2016 Overview: ICD-10 update of inactive term High triglycerides 12/27/2011 7 HTN, GOAL BELOW 140/80 12/06/201107/23 Overview: Per HTN Protocol #27. Hypothyroidism 04/20/2011 03/10/2015 Myalgia and myositis 04/20/2011 017 Dyslipidemia, goal LDL below 70 04/01/2009 06/18/2019 Overview: Per Lipid Taxonomy. HTN, GOAL BELOW 130/80 03/11/200912/08 Overview: Modified per HTN protocol #16. Type 2 diabetes mellitus wit h hemoglobin A1c goal of less than 7.0% 02/13/2009 03/14/2012 Overview: Per Diabetes Taxonomy. ICD-10 update of inactive term Type 2 diabetes mellitus wit h hemoglobin A1c goal of less than 7.0% 02/03/2006 02/13/2009 Overview: Per Diabetes Taxonomy. ICD-10 update of inactive term HYPERTENSION NOS 11/23/2000 03/11/2009 Overview: Modified per HTN protocol #16. Benign prostatic hyperplasia 11/23/2000 01/15/2019 Overview: ICD-10 update of inactive term ICD-10 update of inactive term PURE HYPERCHOLESTEROLEM 11/23/200003/18 Overview: Per Lipid Taxonomy. documented as of this encounter (statuses as of 03/01/2023) Immunizations Name Administration Dates Next Due COVID-19 mRNA, LNP-s, No Pre serve, 2-Dose Series (Yostro) 02/03/2021,07/09/2020,06/13/2020 Covid-19, Mrna, Lnp-s, Pf, B ivalent, 30 Mcg, IM, 12 yrs and above (Pfizer) 03/10/2022 HEP A - Hepatitis A (Adult > 18 yrs) 05/03/2013, 10/31/2012 Hepatitis B, 20+ yrs 05/03/2013,11/28/2012,10/31 Influenza, Whole Virus 02/17/2000,02/18/1998 Pneumococcal Conjugate Vacc, 13 Valent (Prevnar) 09/09/2015 Pneumococcal Polysaccharide PPV23 (Pneumovax) 07/06/2006,02/18/1998 SEASONAL INFLUENZA, PF, 6 M & Above, IM , (FLULAVAL or FLUZONE) 01/02/2018 Season Influenza, Quad, PF, Adjuvanted, 65+ Yrs, IM (FLUAD) 12/25/2019 Seasonal Influenza, Quadriva lent Hd (Fluzone Hd) 12/29/2022,02/04/2022,02/03/2021 Seasonal Influenza, Quadriva lent, No Preserve, IM 02/02/2016,01/28/2015 Seasonal Influenza, Quadriva lent, No Preserve, Mdck 12/27/2016 Seasonal Influenza, Split, I IV3, With Preserve, Inj 12/18/2013,01/30/2013,12/27/2011,01/21,02/04/2010,01/09/2009,01/31/2008 ,01/23/2007,01/31/2006,03/02/2005,04/2000 Seasonal Influenza, Trivalen t, Adjuvanted, 65+ yrs 12/25/2018 TD - Tetanus/Diptheria (ADULT) 05/30/2007 TDAP (age 10 and older)(Boostrix) 11/12/2014 Varicella Zoster Vaccine (Adult) 01/29/2008 Zoster Vaccine Recombinant (Shingrix) 04/06/2018 ,01/02/2018 documented as of this encounter Social History Tobacco Use Types Packs/Day Years Used Date Smoking Tobacco: Never Smokeless Tobacco: Never Alcohol Use Standard Drinks/Week Comments No 0 (1 standard drink = 0.6 oz pur e alcohol) PHQ-2 Answer Date Recorded PHQ Adult Total Score 0 05/18/2022 Hunger Vital Sign Answer Date Recorded Within the past 12 months, y ou worried that your food would run out before you got the money to buy more. Never true 01/02/20 23 Within the past 12 months, t he food you bought just didn't last and you didn't have money to get more. Never true 01/01/2023 Sex and Gender Information Value Date Recorded Sex Assigned at Male 07/11/2018 12:25 PM EDT Gender Identity Male 07/11/2018 12:25 PM EDT Sexual Orientation Straight 01/01/2023 5: 24 PM EDT Job Start Date Occupation Industry Not on file Not on file Not on file documented as of this encounter Functional Status Functional Status Response Date of Assess ment Are you deaf or do you have serious difficulty h earing? No 01/05/2018 Are you blind or do you have serious difficulty seeing, even when wearing glasses? No 01/05/2018 Do you have serious difficul ty walking or climbing stairs? (5 years old or older) No 01/05/2018 Do you have difficulty dress ing or bathing? (5 years old or older) No 01/05/2018 Because of a physical, menta l, or emotional condition, do you have difficulty doing errands alone such as visiting a doctor s office or shopping? (15 years old or older) No 01/06/20 18 Cognitive Status Response Date of Assessm ent Because of a physical, menta l, or emotional condition, do you have serious difficulty concentrating, remembering, or making decisions? (5 years old or older) No 01/05/2018 documented as of this encounter Miscellaneous Notes * Telephone Encounter - Myrna Capps RN - 03/01/2023 8:57 AM EST Called patient- discussed abnormal CMP results as well as concern for fluid overload/ low BP with blood transfusion. Advised patient that it may be safest to be evaluated in the ER vs rechecking lab work and deciding on ER then. Patient states he feels more comfortable going to ER. Called [facility] ER and spoke to Puja to make aware patient is coming. Notified [facility] that patient will not be coming for transfusion. * Telephone Encounter - Myrna Capps RN - 03/01/2023 8:[address] Curtis: "Repeat CMP stat in am please " Faxed lab order to [facility], patient has appt at noon for transfusion. documented in this encounter Plan of Treatment Upcoming Encounters Date Type Department Care Team (Late st Contact Info) Description 03/25/2023 11:00 AM EST Laboratory [facility], [address] [phone] Have, Lab [address] [place] [address] 03/28/2023 11:00 AM EST Hem/Onc Treatment Hematology/Oncology Treatment, [place] [address] [place] [address] Az[place], Chair 11 Hem Onc Scenery [address] [place] [address] 04/04/2023 11:30 AM EST Office Visit Pharmacy [address] [phone] Pharmacist2, [facility] [address] [address] 04/04/2023 12:20 PM EST Office Visit [address] [phone] Juan J Garcia MD [address] [place] [address] 05/19/2023 1:00 PM EST Pharmacy Pharmacy [address] [phone] Pharmacist1, [facility] [address] [address] 05/27/2023 9:40 AM EST Office Visit Otolaryngology [address] [place] [phone] Cely Ayala PA-C [address] [place] [address] 05/31/2023 7:30 AM EST Office Visit Podiatry [facility] [address] [facility] [address] [place] [phone] Oz Jara, RO[address] [place] [address] 05/31/2023 11:00 AM EST Office Visit Hematology/Oncology [facility] [address] [facility] [place] [address] Herb Acevedo MD [address] [place] [address] 07/25/2023 9:15 AM EDT Imaging Radiology, [address] [phone] Scheduled Orders Name Type Priority Associated Diagnoses Orde r Schedule COMPREHENSIVE METABOLIC PANEL Lab STAT CKD (chronic kidney disease) stage 4, GFR 15-29 ml/min ([facility]) Expected: 03/01/2023, Expires: 03/01/2024 Scheduled Procedures Name Priority Associated Diagnoses Date/Ti me COLONOSCOPY FLEXIBLE PROXIMA L DIAGNOSTIC Recall History of colon polyps Family history of colon cancer Health Maintenance Due Date Last Done Comments CKD PHOS USE SMARTSET 39927 08/18/2019 05/0 05/2018, 03/17/2016, 07/23/2013, Additional history exists COVID-19 Vaccine ( season) 2022 03/10/2022, 02/03/2021, 07/09/2020, Additional history exists Diabetic Foot Exam 03/29/2023 03/29/2022, 0 04/27/2021, 11/21/2019, Additional history exists Depression Screening 05/18/2023 05/18/2022 HbA1c 08/10/2023 02/08/2023, 04/2 08/2022, 03/29/2022, Additional history exists GFR 08/29/2023 02/28/2023, 01/17, 01/25/2023, Additional history exists Diabetic Eye Exam 10/22/2023 10/21/2022, , 10/15/2020, Additional history exists Albumin/Creatinine Ratio 11/03/2023 023, 08/16/2022, 06/10/2021, Additional history exists B-12 02/09/2024 02/08/2023, 08/0 11/2022, 10/04/2022, Additional history exists TSH 02/23/2024 02/22/2023, 01/17, 01/04/2023, Additional history exists CKD HGB USE SMARTSET 27886 02/29/202402/28, 02/28/2023, 02/25/2023, Additional history exists DTaP,Tdap,and Td Vaccines (2 - Td or Tdap) 11/12/2024 11/12/2014, 05/30/2007 Hepatitis B Completed 05/03/2013, 11/16, 10/31/2012 Pneumococcal Vaccine: 65+ Years Completed 09/09/2015, 07/06/2006, 02/18/1998 Zoster Vaccines Completed 04/06/2018, 12/17, 01/29/2008 COLONOSCOPY-EVERY 5 YRS AGES 18-100 Discontinued 02/25/2021, 10/06/2015, 10/06/2015, Additional history exists Influenza Vaccine (FLU shot) Completed 12/29/2022, 02/04/2022, 02/03/2021, Additional history exists GARDASIL-HPV IMMUNIZATION SERIES Aged Out No longer eligible based on patient's age to complete this topic MENINGOCOCCAL (MENACTRA/MENVEO) Aged Out No longer eligible based on patient's age to complete this topic documented as of this encounter Medical Devices Implanted Type Area Tmd Teacher Device Identifier Shelf Expiration Date Model / Serial / Lot Marker Coronary [place] - [id number] Implanted:Qty: 2 on 08/14/2013 [place] [facility] [place] Chest [employer] 05/18/2016 [facility] / / [id number] documented as of this encounter Visit Diagnoses Diagnosis CKD (chronic kidney disease) stage 4, GFR 15-29 ml/min (HCC)- Primary Chronic kidney disease, Stage IV (severe) documented in this encounter Advance Directives Documents on File Type Date Recorded 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 Code Status History Code Status Date Activated Date Inactivated Comments Full Code 03/17/2016 11:50 AM 03/18/2016 4:31 PM Thi s order reflects the patients wishes and were consensually agreed upon. Question Answer Comments Discussion of Advance Directives occurred with: Patient Does the patient have a Living Will? No Does the patient have Health Care Power of Solution Specialist? No Full Code 08/14/2013 12:38 PM 08/18/2013 3:04 PM This order reflects the patients wishes and were consensually agreed upon. Care Teams Mill Tender Second Operator Relationship Specialty Start Date End Date Juan J Garcia MD [address] [place] [phone] PCP - General Family Medicine 07/11/18 documented as of this encounter
--- OUTSIDE RECORDS SUMMARY | 2023-03-03 14:34 | External Medical Summary | Summary of Care ---
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) Allergies Active Allergy Reactions Criticality Noted Date Comments Ivp Dye Edema airway,Edema face/lips/tongue,Edema Other High 10/05/2000 "swelling" Lisinopril Cough High 06/18/2019 documented as of this encounter (statuses as of 02/28/2023) Medications Medication Sig Dispensed Refills Start Date [...] 80 MG Oral Tablet (Lipitor)Indications :Atherosclerosis of [place] coronary artery of [place] heart without angina pectoris Take 1 Tablet [...] Tablet 0 02/09/2023 Active FreeStyle Joelle 2 [place] Device use as directed to test blood sugars 4 times daily - DX E11.9 - please use discount card, [place] damaged 1 Each 2 02/08/2023 Active Furosemide 20 MG Oral Tablet (Lasix) Take 2 Tablets by mouth in the morning. 180 Tablet 3 02/08/2023 Active Nitroglycerin 0.4 MG Sublingual Tablet [...] 1 Tablet before bedtime. 0 02/24/2023 Active documented as of this encounter (statuses as of 02/28/2023) Active Problems Problem Noted Date Diagnosed Date [...] tract symp toms 12/30/2003 CORONARY ATHEROSCLER. 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 resolve Thrombocytopenia 06/13/2017 05/17/2019 Type 2 diabetes mellitus wit h target hemoglobin A1c of less than 7.5 percent 09/29/2016 01/30/2018 [employer] Other*[id number] 08/05/2016 08/05/2016 Other seborrheic keratosis 01/31/2014 1 [employer] Other*[id number] 07/23/2013 05/25/2016 Overview: Study Title: Genomic Markers for Patients with Cardiovascular Disease Project # [id number] Stock Controller: Chantel Dorantes MD [phone] Severe obesity with body mas s index [...] as of this encounter (statuses as of 02/28/2023) Immunizations Name Administration Dates Next Due COVID-19 mRNA, LNP-s, No Pre serve, 2-Dose Series ([employer]) 02/03/2021,07/09/2020,06/13/2020 Covid-19, Mrna, Lnp-s, Pf, B ivalent, 30 Mcg, IM, 12 yrs and above (Pfizer) 03/10/2022 HEP A - Hepatitis A (Adult > 18 yrs) 05/03/2013, 10/31/2012 Hepatitis B, 20+ yrs 05/03/2013,11/28/2012,10/31 Pneumococcal Conjugate Vacc, 13 Valent (Prevnar) 09/09/2015 [...] Split, I IV3, With Preserve, Inj 12/18/2013,01/30/2013,12/27/2011,01/21,02/04/2010,01/09/2009,01/31/2008 ,01/23/2007,01/31/2006 Seasonal Influenza, Trivalen t, Adjuvanted, 65+ yrs [...] on file documented as of this encounter Last Filed Vital Signs Vital Sign Reading Time Taken Comments Blood Pressure 102/58 02/28/2023 1:05 PM EST Pulse 97 02/28/2023 10:34 AM EST Temperature 36.1 C (96.9 F) 02/28/2023 10:[address] Respiratory Rate 18 02/28/2023 10:34 AM EST Oxygen Saturation 94% 02/28/2023 10:34 AM EST Inhaled Oxygen Concentration - - Weight - - Height - - Body Mass Index - - documented in this encounter Functional Status Functional Status Response [...] No 01/05/2018 documented as of this encounter Nursing Notes * Yovana Burrell, RN - 02/28/2023 3:48 PM EST 1250 - CBCD resulted and hgb is 7.6 today, decreased from 8.3. See previous RN note regarding patient's symptoms. Per GONSALO Beatty -- will transfuse 1 unit PRBCs. Patient set up for Type and Screen today and will receive transfusion most likely tomorrow. Goals: Patient will remain free from injury. Possible barriers to meeting goals: ambulating with IV pole Stability of the patient: Moderately stable - low risk of patient condition declining or worsening Summary regarding today's goals: Met: pt remained free of harm today Patient tolerated treatment well without any acute issues or problems. Patient left facility in stable condition and denied any further needs. * Yovana Burrell RN - 02/28/2023 10:29 AM EST Chair 6. Patient arrived for Venofer infusion. Patient not feeling very well today, here today with . Patient typically has swelling in BLE and has been having abdominal swelling for 4-6 months per . Abdomen appears to be swollen and patient does c/o pain basically "everywhere." Patient just sayshe generally has not been feeling great. Patient appears to have had chronic problems and has been having them managed by hem/onc for lymphoma management/monitoring and anemia, hepatology, cardiology, and PCP as well. RN spoke with Dr. Acevedo about patient's increased abdominal swelling, low BP today, lethargy and 's concerns about how patient has been feeling. Per Dr. Acevedo, will still give Venofer today and will check additional labs -- will drawn CBCD, LDH, epo, ammonia, and haptoglobin with IV start. Will reassess BP before patient leaves today. Patient denies any lightheadedness, dizziness, confusion, SOB. Overall, patient is comfortable and denies further needs at this time. Safety and Risk for Injury Patient will remain free from injury. Ensure appropriate safety devices are available. Provide and maintain safe environment. documented in this encounter Plan of Treatment Upcoming Encounters Date Type Department Care Team (Late st Contact Info) Description 03/25/2023 11:00 AM EST Laboratory Laboratory Patient Service [place], [address] [phone] [place], [facility] [address] [place] [address] 03/28/2023 11:00 AM EST Hem/Onc Treatment Hematology/Oncology Treatment, [place] [address] [place] [address] Aziza, Chair 11 Hem Onc Scenery [address] [place], [place] [address] 04/04/2023 11:30 AM EST Office Visit Pharmacy [address] [phone] Pharmacist2, [facility] [address] [address] 04/04/2023 12:20 PM EST Office Visit [address] [phone] Juan J Garcia MD [address] [place] [address] 05/19/2023 1:00 PM EST Pharmacy Pharmacy [address] [phone] Pharmacist1, [facility] [address] [address] 05/27/2023 9:40 AM EST Office Visit Otolaryngology [address] [place] [phone] Cely Ayala PA-C [address] [facility] [place] [address] 05/31/2023 7:30 AM EST Office Visit Podiatry [address] [place] [phone] Oz Jara, ROBE [address] [place] [address] 05/31/2023 11:00 AM EST Office Visit Hematology/Oncology [facility], [place] [address] [facility] [place], [place] [address] Herb Acevedo MD [address] [facility] [place] [address] 07/25/2023 9:15 AM EDT Imaging Radiology, [address] [phone] Pending Results Name Type Priority Associated Diagnoses Date /Time ERYTHROPOIETIN (EPO) Lab STAT 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) 02/28/2023 11:21 AM EST AMMONIA Lab STAT 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) 02/28/2023 11:21 AM EST LD Lab STAT 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) 02/28/2023 11:21 AM EST HAPTOGLOBIN Lab STAT 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) 02/28/2023 11:21 AM EST Scheduled Orders Name Type Priority Associated Diagnoses Orde r Schedule ERYTHROPOIETIN (EPO) Lab STAT 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) Expected: 02/28/2023, Expires: 02/20/2024 AMMONIA Lab STAT 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) Expected: 02/28/2023, Expires: 02/20/2024 LD Lab STAT 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) Expected: 02/28/2023, Expires: 02/20/2024 HAPTOGLOBIN Lab STAT 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) Expected: 02/28/2023, Expires: 02/20/2024 COMPREHENSIVE METABOLIC PANEL Lab STAT 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) Iron deficiency anemia, unspecified iron deficiency anemia type Expected: 02/28/2023, Expires: 02/29/2024 Scheduled Procedures Name Priority Associated Diagnoses Date/Ti me COLONOSCOPY FLEXIBLE PROXIMA L DIAGNOSTIC Recall History of colon polyps Family history of colon cancer Health Maintenance Due Date Last Done Comments CKD PHOS USE SMARTSET 18170 08/18/2019 05/0 05/2018, 03/17/2016, 07/23/2013, Additional history exists COVID-19 Vaccine ( season) 2022 03/10/2022, 02/03/2021, 07/09/2020, Additional history exists Diabetic Foot Exam 03/29/2023 03/29/2022, 0 04/27/2021, 11/21/2019, Additional history exists Depression Screening 05/18/2023 05/18/2022 GFR 08/10/2023 02/08/2023, 01/16, 01/18/2023, Additional history exists HbA1c 08/10/2023 02/08/2023, 07/18, 03/29/2022, Additional history exists Diabetic Eye Exam 10/22/2023 10/21/2022, , 10/15/2020, Additional history exists Albumin/Creatinine Ratio 11/03/2023 023, 08/16/2022, 06/10/2021, Additional history exists B-12 02/09/2024 02/08/2023, 08/0 11/2022, 10/04/2022, Additional history exists TSH 02/23/2024 02/22/2023, 01/17, 01/04/2023, Additional history exists CKD HGB USE SMARTSET 57583 02/29/202402/28, 02/28/2023, 02/25/2023, Additional history exists DTaP,Tdap,and [...] this encounter Medical Devices Implanted Type Area Supervisor Case Loading Device Identifier Shelf Expiration Date Model / Serial / Lot Marker Coronary [facility] - [id number] Implanted:Qty: 2 on 08/14/2013 [place] [facility] [place]: Chest [employer] 05/18/2016 [facility] / / [id number] documented as of this encounter Procedures Procedure Name Priority Date/Time Associated Diagnosis Comments DIFFERENTIAL, AUTOMATED STAT 02/28/2023 11:21 AM EST Iron deficiency anemia, unspecified iron deficiency anemia type CBC STAT 02/28/2023 11:21 AM EST Iron deficiency anemia, unspecified iron deficiency anemia type CBC STAT 02/28/2023 11:21 AM EST Iron deficiency anemia, unspecified iron deficiency anemia type DIFFERENTIAL, TECHNOLOGIST REVIEW Routine 02/28/2023 11:21 AM EST Iron deficiency anemia, unspecified iron deficiency anemia type documented in this encounter Results * (ABNORMAL) DIFFERENTIAL, TECHNOLOGIST REVIEW (02/28/2023 11:21 AM EST) WBC 7.66 4.00 - 10.80 K/uL 02/28/2023 11:58 AM EST [facility] 56[facility]02 Neutrophils % 80.0(H) 40.0 - 75.0 % 02/28/2023 11:58 AM EST [facility]02 Lymphocytes % 12.0(L) 18.0 - 42.0 % 02/28/2023 11:58 AM EST [facility] 56-02 Monocytes % 5.0 1.0 - 11.0 % 02/28/2023 11:58 AM EST [facility] 56-02 Eosinophils % 1.0 0.0 - 6.0 % 02/28/2023 11:58 AM EST [facility] 56-02 Metamyelocytes % 2.0(H) <=0.0 % 02/29/20 11:58 AM EST [facility] 56-02 Absolute Neutrophils 6.13 1.80 - 7.70 K/uL 02/28/2023 11:58 AM EST [facility] 56-02 Absolute Lymphocytes 0.92(L) 1.00 - 4.80 K/uL 02/28/2023 11:58 AM EST [facility] 56- Absolute Monocytes 0.38 0.00 - 1.10 K/uL 02/28/2023 11:58 AM EST [facility] 56- Absolute Eosinophils 0.08 0.00 - 0.70 K/uL 02/28/2023 11:58 AM [facility] 56- Absolute Metamyelocytes 0.15(H) <=0.00 K/uL 02/28/2023 11:58 AM EST [facility] 56-02 nRBCs 02/28/2023 11:58 AM [facility] 56- Elliptocytes Moderate( A) None Seen 02/28/2023 11:58 AM [facility] 56- Blood Venous blood specimen / Unknown Peripheral IV / Unknown 02/28/2023 11:21 AM EST 02/28/2023 11:39 AM EST Bridgett BRUSH LAB BLOOD ORDER [facility] 56- [address] [place] [address] * DIFFERENTIAL, AUTOMATED (02/28/2023 11:21 AM EST) Blood Venous blood specimen / Unknown Peripheral IV / Unknown 02/28/2023 11:21 AM EST 02/28/2023 11:39 AM EST Bridgett [facility] LAB BLOOD ORDER [facility] 56- [address] [place] [address] * (ABNORMAL) CBC (02/28/2023 11:21 AM EST) WBC 7.66 4.00 - 10.80 K/uL 02/28/2023 11:58 AM [facility] 56- RBC 2.67 4.50 - 5.25 M/uL 02/28/2023 11:58 AM [facility] 56-02 HGB 7.6(L) 14.0 - 16.8 g/dL 02/28/2023 11:58 AM [facility] 56- HCT 24.9(L) 40.0 - 48.4 % 02/28/2023 11:58 AM [facility] 56- MCV 93.3 82.0 - 99.5 fL 02/28/2023 11:58 AM [facility] 56- MCH 28.5 27.0 - 34.0 pg 02/28/2023 11:58 AM [facility] 56- MCHC 30.5 32.0 - 36.0 g/dL 02/28/2023 11:58 AM [facility] 56- RDW 18.1 11.5 - 15.5 % 02/28/2023 11:58 AM [facility] 56- PLT 241 140 - 400 K/uL 02/28/2023 11:58 AM [facility] 56- MPV 9.3 6.6 - 11.1 fL 02/28/2023 11:58 AM [facility] 56- Blood Venous blood specimen / Unknown Peripheral IV / Unknown 02/28/2023 11:21 AM EST 02/28/2023 11:39 AM EST Bridgett [facility]USH LAB BLOOD ORDER [facility] 56- [address] [place], [place] [phone] documented in this encounter Visit Diagnoses Diagnosis Iron deficiency anemia, unspecified iron deficiency anemia type- Primary 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 documented in this encounter Administered Medications Active Administered Medications - up to 3 most recent administrations Medication Order MAR Action Action Date Dose Rate Site diphenhydrAMINE (Benadryl) inj 50 mg 50 mg, IV Push, ONCE PRN Other, Hypersensitivity Reaction, Starting on Tue02/28/23 at 1131, Until Tue03/01/23 at 1130, For 24 hours EPINEPHrine 1 MG/ML inj 0.3 mg 0.3 mg, Intramuscular, ONCE PRN Other, Hypersensitivity Reaction or Anaphylaxis, Starting on Tue02/28/23 at 1131, Until Tue03/01/23 at 1130, For 24 hours hEParin 100 UNIT/ML Lock Flush inj 500 Units 500 Units (5 mL), IV Lock, PRN Other, IV Flush, Starting on Tue02/28/23 at 1131, Until Tue03/01/23 at 1130, For 24 hours, Do not flush if lock, PICC, or central line not in place; IV infusing or unable to flush. Hydrocortisone Sod Suc (PF) (Solu-Cortef) inj 100 mg 100 mg, IV Push, ONCE PRN Other, Hypersensitivity Reaction, Starting on Tue02/28/23 at 1131, Until Tue03/01/23 at 1130, For 24 hours NSS infusion 500 mL, Intravenous, at 50 mL/hr, CONTINUOUS, Starting on Tue02/28/23 at 1245, Until Tue02/28/23 at 2244 Start Infusion 02/28/2023 11:30 AM EST 500 mL 50 mL/hr sodium chloride 0.9 % flush central line 10 mL 10 mL, IV Push, PRN Other, IV Flush, Starting on Tue02/28/23 at 1131, Until Tue03/01/23 at 1130, For 24 hours, Do not flush if lock, PICC, or central line not in place; IV infusing or unable to flush. Inactive Administered Medications - up to 3 most recent administrations Medication Order MAR Action Action Date Dose Rate Site Iron Sucrose (Venofer) 300 mg in NSS 250 mL ivpb 300 mg, IV Piggyback, ONCE, 1 dose, On Tue02/28/23 at 1315, Administer over 90 Minutes Start Infusion 02/28/2023 11:31 AM EST 300 mg 166.67 mL/hr documented in this encounter Advance Directives Documents on File Type Date Recorded Patient Prop Drawer Expl anation Advance Directives and Living Will [...] the patient have Health Care Power of [place]? No Full Code 08/14/2013 12:38 PM 08/18/2013 3:04 PM This order reflects the patients wishes and were consensually agreed upon. Care Teams Lead Generation Specialist Relationship Specialty Start Date End Date Juan J Garcia MD [address] [place] [address] PCP - General Family Medicine 07/11/18 documented as of this encounter
--- OUTSIDE RECORDS SUMMARY | 2023-03-03 14:34 | External Medical Summary | Summary of Care ---
Author Name Unknown Organization [facility] Address [address] [place] [address] Phone [phone] Care Team Providers Care Turbine Operator Name Role Phone Juan J Garcia MD Primary Care Provider [phone] Reason for Visit * Reason Onset Date Comments Information 03/01/2023 Encounter Details Date Type Department Care Team (Late st Contact Info) Description 03/01/2023 Telephone Hematology/Oncology Treatment, [address] [address] Herb Acevedo MD [address] [place] [address] Information Allergies Active Allergy Reactions Criticality Noted [...] 80 MG Oral Tablet (Lipitor)Indications :Atherosclerosis of [place] coronary artery of [place] heart without angina pectoris Take 1 Tablet [...] Tablet 0 02/09/2023 Active FreeStyle Joelle 2 [place] Device use as directed to test blood sugars 4 times daily - DX E11.9 - please use discount card, [place] damaged 1 Each 2 02/08/2023 Active Nitroglycerin [...] tract symp toms 12/30/2003 CORONARY ATHEROSCLER. OF [place] CORONARY VESSEL 11/23/2000 Overview: IMI, , Rx [...] than 7.5 percent 09/29/2016 01/30/2018 [employer] Other*[id number] 08/05/2016 08/05/2016 Other seborrheic keratosis 01/31/2014 1 [employer] Other*[id number] 07/23/2013 05/25/2016 Overview: Study Title: Genomic Markers for Patients with Cardiovascular Disease Project # [id number] Higher Level Teaching Assistant: Chantel Dorantes MD [phone] Severe obesity with body mas s index [...] mRNA, LNP-s, No Pre serve, 2-Dose Series ([email or web address]) 02/03/2021,07/09/2020,06/13/2020 Covid-19, Mrna, Lnp-s, Pf, B ivalent, [...] RN - 03/01/2023 8:20 AM EST Per Curtis: "Repeat CMP stat in am please " Faxed lab order to [facility], patient has appt at noon for transfusion. documented in this encounter Plan of Treatment Upcoming Encounters Date Type Department Care Team (Late st Contact Info) Description 03/25/2023 11:00 AM EST Laboratory Laboratory Patient Service [address] [phone] [place], [address] [address] 03/28/2023 11:00 AM EST Hem/Onc Treatment Hematology/Oncology Treatment, [place] 200 [facility], [place] [address] [place], Chair 11 Hem Onc Scenery [address] [facility] [place] [address] 04/04/2023 11:30 AM EST Office Visit Pharmacy [address] [phone] Pharmacist2, [facility] [address] [phone] 04/04/2023 12:20 PM EST Office Visit Family [address] [phone] Juan J Garcia MD [address] [place] [address] 05/19/2023 1:00 PM EST Pharmacy Pharmacy [address] [phone] Pharmacist1, [facility] [address] [address] 05/27/2023 9:40 AM EST Office Visit Otolaryngology [address] [place] [phone] Cely Ayala PA-C [address] [place] [address] 05/31/2023 7:30 AM EST Office Visit Podiatry [address] [place] [address] Oz Jara DPM [employer] [place] [address] 05/31/2023 11:00 AM EST Office Visit Hematology/Oncology [facility] [address] [place] [address] Herb Acevedo MD [address] [facility] [place] [address] 07/25/2023 9:15 AM EDT Imaging Radiology, [address] [phone] Scheduled Orders Name Type Priority Associated Diagnoses Orde r Schedule COMPREHENSIVE METABOLIC PANEL Lab STAT CKD (chronic kidney disease) stage 4, GFR 15-29 ml/min (HCC) Expected: 03/01/2023, Expires: 03/01/2024 Scheduled Procedures Name Priority Associated Diagnoses Date/Ti me COLONOSCOPY FLEXIBLE PROXIMA L DIAGNOSTIC Recall History of colon polyps Family history of colon cancer Health Maintenance Due Date Last Done Comments CKD PHOS USE SMARTSET 84420 08/18/2019 05/0 05/2018, 03/17/2016, 07/23/2013, Additional history exists COVID-19 Vaccine ( season) 2022 03/10/2022, 02/03/2021, 07/09/2020, Additional history exists Diabetic Foot Exam 03/29/2023 03/29/2022, 0 04/27/2021, 11/21/2019, Additional history exists Depression Screening 05/18/2023 05/18/2022 HbA1c 08/10/2023 02/08/2023, 07/18, 03/29/2022, Additional history exists GFR 08/29/2023 02/28/2023, 01/17, 01/25/2023, Additional history exists Diabetic Eye Exam 10/22/2023 10/21/2022, , 10/15/2020, Additional history exists Albumin/Creatinine Ratio 11/03/2023 023, 08/16/2022, 06/10/2021, Additional history exists B-12 02/09/2024 02/08/2023, 0811/2022, 10/04/2022, Additional history exists TSH 02/23/2024 02/22/2023, 01/17, 01/04/2023, Additional history exists CKD HGB USE SMARTSET 21750 02/29/202402/283, 02/28/2023, 02/25/2023, Additional history exists DTaP,Tdap,and Td [...] this encounter Medical Devices Implanted Type Area Air/Ocean Export Clerk Device Identifier Shelf Expiration Date Model / Serial / Lot Marker Coronary [facility] - [id number] Implanted:Qty: 2 on 08/14/2013 at [place] [facility] [place] N/A: Chest [employer] 05/18/2016 [facility] / / [id number] documented as of this encounter Visit Diagnoses Diagnosis CKD (chronic kidney disease) stage 4, GFR 15-29 ml/min (HCC)- Primary Chronic kidney disease, Stage IV (severe) documented in this encounter Advance Directives Documents on File Type Date Recorded Patient Embossograph Operator Expl anation Advance Directives and Living Will [...] the patient have Health Care Power of [place] Management Specialist? No Full Code 08/14/2013 12:38 PM 08/18/2013 3:04 PM This order reflects the patients wishes and were consensually agreed upon. Care Teams Turbine Operator Relationship Specialty Start Date End Date Juan J Garcia MD [address] [place] [id number] PCP - General Family Medicine 07/11/18 documented as of this encounter
--- OUTSIDE RECORDS SUMMARY | 2023-03-03 14:35 | External Medical Summary ---
Author Name Unknown Address Unknown Organization [id number]:[facility] [place] - [address] [place] [address] [place] [address] Laboratory Report Ordering Provider Test Date Status SHMUEL MARSH 02/28/2023 11:21:45 Final Observation Date Value Abnormality Reference (Units ) Status Ammonia 02/28/2023 11:21:45 18 11-35 (umo l/L) Final Performing Location [facility] - [address] [place] [address]
--- OUTSIDE RECORDS SUMMARY | 2023-03-03 14:35 | External Medical Summary ---
Author Name Unknown Address Unknown Organization K01:[facility] - [address] [place] [address] Laboratory Report Ordering Provider Test Date Status SHMUEL MARSH 02/28/2023 11:21:45 Final Observation Date Value Abnormality Reference (Units ) Status LDH 02/28/2023 11:21:45 138 <=250 (U/L ) Final Performing Location [facility] - [address] [place] [address]
--- OUTSIDE RECORDS SUMMARY | 2023-03-03 14:35 | External Medical Summary ---
Author Name Unknown Address Unknown Organization [id number]:[facility] [place] [address] [place] [address] [place] [address] Laboratory Report Ordering Provider Test Date Status SALMASHMUEL 02/28/2023 11:21:45 Final Observation Date Value Abnormality Reference (Units ) Status Haptoglobin 02/28/2023 11:21:45 203 Above high normal 30-200 (mg/dL) Final Performing Location [facility] [place] [address] [facility] [address]
--- OUTSIDE RECORDS SUMMARY | 2023-03-03 14:35 | External Medical Summary | Summary of Care ---
Author Name Unknown Organization [facility] Address [address] [place] [address] Phone [phone] Care Team Providers Care Bundler Seasonal Greenery Name Role Phone Juan J Garcia MD Primary Care Provider [phone] Reason for Visit * Reason Onset Date Comments Test Results Lab 02/28/2023 Encounter Details Date Type Department Care Team (Late st Contact Info) Description 02/28/2023 Telephone Hematology/Oncology Treatment, [place] [address] [facility] [address] [place], [place] [id number] Bridgett Encinas CRNP [address] [facility] [place] [id number] Test Results Lab Allergies Active Allergy Reactions Criticality Noted Date [...] 80 MG Oral Tablet (Lipitor)Indications :Atherosclerosis of [place] coronary artery of [place] heart without angina pectoris Take 1 Tablet [...] Tablet 0 02/09/2023 Active FreeStyle Joelle 2 [place] Device use as directed to test blood sugars 4 times daily - DX E11.9 - please use discount card, [place] damaged 1 Each 2 02/08/2023 Active Furosemide [...] tract symp toms 12/30/2003 CORONARY ATHEROSCLER. OF [place] CORONARY VESSEL 11/23/2000 Overview: IMI, , Rx [...] of less than 7.5 percent 09/29/2016 01/30/2018 [employer] Other*[id number] 08/05/2016 08/05/2016 Other seborrheic keratosis 01/31/2014 1 [employer] Other*[id number] 07/23/2013 05/25/2016 Overview: Study Title: Genomic Markers for Patients with Cardiovascular Disease Project # [id number] Signals Intelligence Analysis Manager: Chantel Dorantes MD [phone] Severe obesity with body mas s index [...] mRNA, LNP-s, No Pre serve, 2-Dose Series ([employer]) 02/03/2021,07/09/2020,06/13/2020 Covid-19, Mrna, Lnp-s, Pf, B ivalent, [...] Telephone Encounter - Myrna Capps RN - 02/28/2023 1:13 PM EST Patient to receive 1 unit PRBC for hgb 7.6. Called [facility] blood bank (Rosalie). They have products available pending changes to T&S. Called [facility] (Bhargavi) and central scheduling (Triny). Patient scheduled for tomorrow at noon. Patient verbalized understanding of appt time. Will go for T*S today. Faxed order to [facility]/ blood bank. documented in this encounter Plan of Treatment Upcoming Encounters Date Type Department Care Team (Late st Contact Info) Description 03/25/2023 11:00 AM EST Laboratory Laboratory Patient Service [place], [address] [phone] Jd [place] [address] [place] [address] 03/28/2023 11:00 AM EST Hem/Onc Treatment Hematology/Oncology Treatment, [place] [address] [place] [address] Aziza, Chair 11 Hem Onc Scenery [address] [place], [place] [phone] 04/04/2023 11:30 AM EST Office Visit Pharmacy [address] [phone] Pharmacist2, [facility] [address] [phone] 04/04/2023 12:20 PM EST Office Visit Family [address] [phone] Juan J Garcia MD [address] [place] [phone] 05/19/2023 1:00 PM EST Pharmacy Pharmacy [address] [phone] Pharmacist1, [address] [address] 05/27/2023 9:40 AM EST Office Visit Otolaryngology [address] [phone] Cely Ayala PA-C [address] [facility] [place] [address] 05/31/2023 7:30 AM EST Office Visit Podiatry [address] [place] [phone] Oz Jara, Rhett [address] [place] [address] 05/31/2023 11:00 AM EST Office Visit Hematology/Oncology [employer] [facility] [place] [address] Herb Acevedo MD [address] [facility] [place] [address] 07/25/2023 9:15 AM EDT Imaging Radiology, [address] [phone] Scheduled Orders Name Type Priority Associated Diagnoses Orde r Schedule TYPE AND SCREEN Lab Routine Anemia, unspecified type Expected: 02/28/2023, Expires: 03/30/2024 Scheduled Procedures Name Priority Associated Diagnoses Date/Ti me COLONOSCOPY FLEXIBLE PROXIMA L DIAGNOSTIC Recall History of colon polyps Family history of colon cancer Health Maintenance Due Date Last Done Comments CKD PHOS USE SMARTSET 89976 08/18/2019 05/0 05/2018, 03/17/2016, 07/23/2013, Additional history exists COVID-19 Vaccine ( season) 2022 03/10/2022, 02/03/2021, 07/09/2020, Additional history exists Diabetic Foot Exam 03/29/2023 03/29/2022, 0 04/27/2021, 11/21/2019, Additional history exists Depression Screening 05/18/2023 05/18/2022 GFR 08/10/2023 02/08/2023, 01/16, 01/18/2023, Additional history exists HbA1c 08/10/2023 02/08/2023, 0408/2022, 03/29/2022, Additional history exists Diabetic Eye Exam 10/22/2023 10/21/2022, , 10/15/2020, Additional history exists Albumin/Creatinine Ratio 11/03/2023 023, 08/16/2022, 06/10/2021, Additional history exists B-12 02/09/2024 02/08/2023, 08/0 11/2022, 10/04/2022, Additional history exists TSH 02/23/2024 02/22/2023, 01/17, 01/04/2023, Additional history exists CKD HGB USE SMARTSET 75574 02/29/202402/28, 02/28/2023, 02/25/2023, Additional history exists DTaP,Tdap,and [...] this encounter Medical Devices Implanted Type 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 No Full Code 08/14/2013 12:38 PM 08/18/2013 3:04 PM This order reflects the patients wishes and were consensually agreed upon. Care Teams Bundler Seasonal Greenery Relationship Specialty Start Date End Date Juan J Garcia MD [address] [place] [address] PCP - General Family Medicine 07/11/18 documented as of this encounter
--- OUTSIDE RECORDS SUMMARY | 2023-03-03 14:35 | External Medical Summary ---
Author Name Unknown Address Unknown Organization [id number]:[facility] - [address] [facility] [place] BA[place]ES [address] Laboratory Report Ordering Provider Test Date Status SHMUEL MARSH 02/28/2023 11:21:45 Final Observation Date Value Abnormality Reference (Units ) Status BUN 02/28/2023 11:21:45 44 Above high normal 6-20 (mg/dL) Final Creatinine 02/28/2023 11:21:45 2.6 Above high normal 0.6-1.2 (mg/dL) Final Glomerular filtration rate/1.73 sq M.predicted [Volume Rate/Area] in Serum, Plasma or Blood by Creatinine-based formula (CKD-EPI) 02/28/2023 11:21:45 24 Below low normal >=60 (mL/min) Final eGFR is calculated based on the CKD-EPI 2020 equation SODIUM 02/28/2023 11:21:45 123 Below low normal 135 -146 (mmol/L) Final Potassium 02/28/2023 11:21:45 6.5 Above high normal 3. 5-5.1 (mmol/L) Final Cl 02/28/2023 11:21:45 93 Below low normal 98- 107 (mmol/L) Final CO2 02/28/2023 11:21:45 17 Below low normal 22- 32 (mmol/L) Final Anion gap 02/28/2023 11:21:45 13 7-15 (mmol /L) Final Glucose 02/28/2023 11:21:45 171 Above high normal 70 -120 (mg/dL) Final Albumin 02/28/2023 11:21:45 3.3 Below low normal 3.8 -5.0 (g/dL) Final AST (Aspartate aminotransferase) 02/28/2023 11:21:45 15 10-50 (U/L) Fin al Alk Phos 02/28/2023 11:21:45 99 35-130 (U/ L) Final Bilirubin, Total 02/28/2023 11:21:45 0.3 <=1 .2 (mg/dL) Final Calcium 02/28/2023 11:21:45 8.7 8.4-10.2 ( mg/dL) Final Protein 02/28/2023 11:21:45 5.6 Below low normal 6.0 -8.3 (g/dL) Final ALT (Alanine aminotransferase) 02/28/2023 11:21:45 15 10-50 (U/L) Denis la Performing Location [facility] - [facility] [address] [facility] [id number]
--- NOTE | 2023-03-03 15:42 | Hospitalist Progress Note ---
Date of Service March 03, 2023 Assessment & Plan (1) Acute on chronic anemia: (2) Acute kidney injury superimposed on chronic kidney disease: (3) Acute hyperkalemia: (4) Chronic systolic heart failure: (5) Acute renal failure: (6) Malnutrition: (7) Hyponatremia: (8) PAF (paroxysmal atrial fibrillation): (9) Hypothyroidism: (10) Diabetes mellitus, type 2: (11) Marginal zone lymphoma: (12) Alcoholic cirrhosis of liver with ascites: Plan Pt is an 82yoM with PMHx significant for marginal cell lymphoma, DMII, CAD s/p stent placement, a fib, hypothyroidism, alcoholic cirrhosis admitted with electrolyte abnormalities and worsening ascites. Alcoholic cirrhosis of liver with ascites s/p Diagnostic paracentesis in the ED- no SBP US liver noted cirrhosis with ascites and patent portal veins On Lasix, albumin Holding home spironolactone GI recs- recommending low sodium diet and the following general recs: -No NSAIDs, No ETOH, Less than 2G tylenol if using, Trend MELD labs -EGD in 1-2 years -Continued follow up with hepatology Nephrology recs- appreciate recs for diuretics -recommending renal US/CT abd/pelvis w/o contrast Anemia requiring transfusion Pt with anemia below 7 requiring transfusion of 1U pRBC on 03/02 and 03/03 Suspicious for acute GI bleed, pt with known esophageal varices EGD with GI on 03/03 -noted Grade III esophageal varices with signs of bleeding, portal hypertensive gastropathy -varices were banded -started on Octreotide -full liquid diet x 3 days -pantoprazole 40mg daily x 6 weeks -repeat EGD in 6 weeks for retreatment -prophylactic broad spectrum antibiotics until discharge Hemoccult/FOBT pending Holding home Eliquis and aspirin Continue to monitor hgb levels Hypotension Multifactorial including pt with acute GI bleed Continue midodrine- dose increased to 10mg TID Consider holding home Imdur, metoprolol has parameters for holding Continue to monitor, anticipating improvement with cessation of GI bleed Acute renal failure Cr elevated above baseline Multifactorial but likely due to low effective arterial volume in setting of worsening ascites and poor PO intake. Hold home losartan and spironolactone Appreciate nephrology recs Hyperkalemia Patient with K about 5 per outpatient record review. 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 While admitted, cont basal/bolus insulin. Nutrition recommending not resuming home ozempic on d/c Hypothyroidism Recent TSH on 02/22 is 14.90. Recently increased Synthroid to 225mcg by PCP. Cont current dose PCP to adjust as outpatient PAF (paroxysmal atrial fibrillation) on lifelong AC, no bleeding issues reported Holding apixaban in setting of anemia requiring transfusion noted above Malnutrition poor PO intake for 3 months. Nutrition consulted. Nutrition recommending not resuming home ozempic on d/c Diet: low sodium, low potassium, DMII, fluid restriction of 1500ml DVT prophylaxis: Holding home eliquis in setting of anemia requiring transfusion Full Code as confirmed with patient on admission. Admission and Anticipated Discharge Date Admission Date: March 01, 2023 Subjective Pt seen in the AM before EGD. Hgb below 7 once more, was transfused 1U. Notes 3 episodes of diarrhea yesterday but does not feel like he has completely let it all out. Denied dizziness, SOB or chest pain. States that the tightness in his abdomen feels like it is improving. Review of Systems Review of Systems: All systems reviewed & are unremarkable except as noted in Subjective Physical Exam Physical Exam: General: Alert, oriented. No acute distress Skin: No noted rashes or bruises Psych: Appropriate mood and affect Neuro: No gross deficits HEENT: NC/AT Chest: Nontender to palpation. CV: RRR Resp: Breath sounds decreased bilaterally, no increased effort of breathing. Abdomen: Distended, firm Extremities: edema in lower extremities bilaterally. Results & Data Results & Data Vital Signs (Past 12 Hours) Vital Signs Temp Pulse Pulse Resp BP BP Pulse Ox 03/03/23 15:41 36.3 C L 81 18 95/50 L 95 03/03/23 14:37 36.2 C L 80 16 117/72 95 03/03/23 12:53 72 18 98/67 L 93 03/03/23 12:39 80 16 100/69 94 03/03/23 12:23 80 16 97/66 L 96 03/03/23 11:38 36.1 C L 90 18 105/67 95 03/03/23 11:21 36.4 C L 83 20 96/67 L 94 03/03/23 10:40 36.6 C 68 16 106/68 96 03/03/23 10:12 36.6 C 81 16 101/68 95 03/03/23 09:43 36.6 C 83 20 95/66 L 96 03/03/23 09:12 36.8 C 86 16 90/58 L 96 03/03/23 08:42 36.3 C L 88 18 98/64 L 96 03/03/23 08:27 36.3 C L 86 18 96/63 L 96 03/03/23 08:10 36.3 C L 66 18 96/64 L 96 03/03/23 07:31 36.6 C 75 18 103/69 97 O2 Del Method 03/03/23 15:41 Room Air 03/03/23 14:37 Room Air 03/03/23 12:53 Room Air 03/03/23 12:39 Room Air 03/03/23 12:23 Room Air 03/03/23 11:38 Room Air 03/03/23 11:21 Room Air 03/03/23 10:40 03/03/23 10:12 03/03/23 09:43 03/03/23 09:12 03/03/23 08:42 03/03/23 08:27 03/03/23 08:10 03/03/23 07:31 Room Air (5) Acute renal failure Acute renal failure type: unspecified Qualified Code(s): N17.9 - Acute kidney failure, unspecified
[2023-03-03] MEDS: PATIROMER CALCIUM SORBITEX 8.4 GM PACK PO SCH (16:08)
[2023-03-03] MEDS: MIDODRINE HCL 10 MG TAB PO SCH (17:22)
--- NOTE | 2023-03-03 17:43 | CT Scan Report ---
ABDOMEN AND PELVIS CT WITHOUT CONTRAST CT DOSE: 1373.15 mGy.cm HISTORY: GI bleed, renal eval TECHNIQUE: Multiaxial CT images of the abdomen and pelvis were performed without contrast. A dose lo wering technique was utilized adhering to the principles of ALARA. COMPARISON STUDY: None. FINDINGS: Bibasilar linear densities consistent with subsegmental atelectasis or scarring. There are trace bilateral pleural effusions. The heart is mildly enlarged. Coronary artery calcifications are n oted. There are poststernotomy changes. Trace pericardial effusion. No pneumoperitoneum. No pneumatos is. There is a left total hip arthroplasty. Posterior decompression within the lumbar spine. No acute fractures. Small fluid-filled epigastric hernia. There is a fluid-filled left inguinal hernia. There is mild body wall edema. Moderate to severe ascites. Nodular contour to the liver consistent with ci rrhosis. There are are a few scattered calcified granulomas within the liver and spleen. The spleen i s mildly enlarged likely representing portal hypertension. Prior cholecystectomy. The unenhanced panc reas and adrenal glands are unremarkable. Bilateral nephrolithiasis. No ureteral stones. No hydroneph rosis. Of note, the distal left ureter is not well visualized due to metallic artifact from the left hip prosthesis. Calcified plaque within the normal caliber abdominal aorta. No retroperitoneal or pel santana lymphadenopathy. The bladder is not well visualized but appears unremarkable. Suboptimal evaluati on for bowel pathology due to the lack of intravenous and oral contrast. However, there is no definit e bowel wall thickening or obstruction. Normal appendix. IMPRESSION: 1. Moderate to large amount of ascites. 2. Cirrhotic liver with splenomegaly consistent with underlying portal hypertension. 3. No definite bowel wall thickening or obstruction. 4. Normal appendix. 5. Additional findings as described above. ACT 112: Negative or not required by law. Electronically signed by: Escobar Xie M.D. 03/03/2023 5:42 PM
[2023-03-03 17:49] LABS: Hematocrit (blood only) 28.4 % (42.0-52.0); Hemoglobin 9.3 g/dl (14.0-18.0)
[2023-03-03 18:04] LABS: BUN Creatinine Ratio 16.8 (10-20); Calcium 9.1 mg/dl (8.6-10.3); Creatinine Clr Calc Pharmacy 25.6 ml/min; Est GFR (Non-African American) 25.1 ml/min; Potassium 5.3 mmol/L (3.5-5.1)
[2023-03-03] MEDS ORDERED: FUROSEMIDE INJ 20 MG/2 ML VIAL IV ONE (18:14)
[2023-03-03] MEDS ORDERED: PANTOprazole 40 MG TAB PO SCH (21:00)
[2023-03-03] MEDS: TAMSULOSIN HCL 0.4 MG CAP PO SCH (21:20)
[2023-03-03] MEDS: ATORVASTATIN 40 MG TAB PO SCH (21:20)
[2023-03-03] MEDS ORDERED: NITROGLYCERIN SL 0.4 MG/TAB TAB SL STA (22:12)
[2023-03-03] MEDS ORDERED: ALBUMIN 25% 25 GM/100 ML VIAL IV ONE (22:12)
[2023-03-03 23:21] LABS: Partial Thromboplastin Ratio 1.2; Partial Thromboplastin Time 33.2 Seconds (21.0-31.0)
--- NOTE | 2023-03-04 03:04 | Ultrasound Report ---
Exam(s): US RENAL EXAM: US Retroperitoneal Limited, Renal CLINICAL HISTORY: Reason for exam: per nephrology, renal failure, renal eval. TECHNIQUE: Real-time limited ultrasound of the retroperitoneum with image documentation. COMPARISON: CT abdomen/pelvis on 03/03/2023 FINDINGS: Right kidney: Right kidney measures 10.8 cm in length. Minimal fullness of the right renal collecting system. No stone identified. Increased echogenicity of the right renal parenchyma is suggestive of medical renal disease. Left kidney: Mild left hydronephrosis. No stone identified. Left kidney measures 11.8 cm in length. Small left renal cyst measuring 1.2 cm. Bladder: Visualized portions of the bladder are grossly unremarkable. Free fluid: Large amount of ascites with internal echoes. Other findings: Splenomegaly, measuring 18.6 cm per and impression. IMPRESSION: 1. Mild left hydronephrosis. No stone identified. 2. Minimal fullness of the right renal collecting system. No stone identified. 3. Increased echogenicity of the right renal parenchyma is suggestive of medical renal disease. 4. Large amount of ascites with internal echoes. Electronically signed by: Nelia Lazo M.D. 03/04/23 03:02 AM
[2023-03-04] MEDS: LEVOTHYROXINE SODIUM 200 MCG TABLET PO SCH (06:44)
[2023-03-04] MEDS: LEVOTHYROXINE SODIUM 25 MCG TABLET PO SCH (06:44)
[2023-03-04 07:46] LABS: Basophils # (auto) 0.05 K/uL (0.00-0.20); Basophils % (auto) 1.5 %; Eosinophils # (auto) 0.12 K/uL (0.00-0.50); Eosinophils % (auto) 3.6 %; Hematocrit (blood only) 24.1 % (42.0-52.0); Immature Granulocytes # (auto) 0.04 K/uL (0.01-0.20); Immature Granulocytes % (auto) 1.2 %; Lymphocytes # (auto) 0.54 K/uL (1.20-3.40); Lymphocytes % (auto) 16.2 %; Mean Corpuscular Hemoglobin 29.4 pg (25.0-34.0); Mean Corpuscular Hgb Conc 33.2 g/dL (32.0-36.0); Mean Corpuscular Volume 88.6 fL (80.0-100.0); Mean Platelet Volume 9.3 fL (9.4-12.4); Monocytes # (auto) 0.45 K/uL (0.11-0.59); Monocytes % (auto) 13.5 %; Neutrophils # (auto) 2.13 K/uL (1.40-6.50); Platelet Count 122 K/uL (130-400); RDW Coefficient of Variation 17.5 % (11.5-14.5); RDW Standard Deviation 55.8 fL (36.4-46.3); Red Blood Count 2.72 M/uL (4.70-6.10); White Blood Count 3.33 K/ul (4.8-10.8)
[2023-03-04] MEDS: MIDODRINE HCL 10 MG TAB PO SCH ×3 (07:49→15:47)
[2023-03-04] MEDS: OCTREOTIDE ACETATE 500 MCG in 0.9 % SODIUM CHLORIDE 100 ML IV SCH ×2 (07:49→17:54)
[2023-03-04] MEDS: INSULIN ASPART PER UNIT CHARGE SC SCH ×4 (07:58→21:50)
[2023-03-04] MEDS: METOCLOPRAMIDE HCL 10 MG TABLET PO SCH (07:59)
[2023-03-04] MEDS: ISOSORBIDE MONO EXTENDED REL 60 MG TABCR PO SCH (07:59)
[2023-03-04] MEDS: PANTOprazole 40 MG TAB PO SCH (07:59)
[2023-03-04] MEDS: METOPROLOL SUCC 50MG EXT REL TAB PO SCH (07:59)
[2023-03-04 08:05] LABS: Albumin Globulin Ratio 2.1 (0.9-2); Albumin Level 3.5 gm/dl (3.4-5.0); BUN Creatinine Ratio 17.1 (10-20); Bilirubin,Total 0.6 mg/dl (0.2-1.0); Calcium 8.5 mg/dl (8.6-10.3); Creatinine Clr Calc Pharmacy 27.4 ml/min; Est GFR (African American) 31.5 ml/min; Est GFR (Non-African American) 27.2 ml/min; Globulin 1.7 gm/dl (2.5-4.0); Magnesium 1.8 mg/dl (1.7-2.4); Potassium 4.6 mmol/L (3.5-5.1); Total Protein 5.2 gm/dl (6.0-8.3)
--- NOTE | 2023-03-04 08:28 | Communication Note ---
Date of Service: March 04, 2023 Pt was seen and evaluated, chart reviewed. Nursing present. He notes he feels well. Denies abd pain, nausea,vomiting. Moving bowels. No report of black or bloody stools. S/P EGD w/ varices, banded. Also noted was portal htn gastropathy. Full liquid diet for 3 days.Use Protonix (pantoprazole) 40 mg PO daily for 6 weeks. Administer an IV bolus of 50 micrograms of octreotide followed by an infusion for 3 days. Repeat upper endoscopy in 6 weeks for retreatment. Use broad spectrum antibiotics until discharge. Please refer to prior consultation note for additional recommendation and plans. GI will sign off. Please call with any questions or concerns. The patient appears to be much improved today but notes some epigastric bloating which is likely related to his ascites. Recomendations as above: Octreotide another 48 hours full liquid diet for 72 hours then a low sodium diet continue abx coverage until dischage consider a repeat theraputic paracentesis with albumin infusion Protonix 40 mg daily repeat egd to be scheduled please call with questions
--- NOTE | 2023-03-04 08:43 | Electrocardiogram Report ---
Test Reason : Blood Pressure : / mmHG Vent. 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
[2023-03-04] MEDS: FAMOTIDINE 20 MG TAB PO SCH ×2 (10:23→20:38)
[2023-03-04] MEDS: cefTRIAXone SODIUM 2,000 MG in DEXTROSE 5 % MINI-B 50 ML IV SCH (10:24)
--- NOTE | 2023-03-04 11:07 | Nephrology Progress Note ---
Date of Service March 04, 2023 Assessment & Plan (1) Acute kidney injury superimposed on chronic kidney disease: Plan: stable EDMAR nonoliguric stage 1 on nonproteinuric CKD 3B w/ electrolyte issues as below. progressive ckd in 2022 > baseline in late summer mid . admission creatinine 2.3-2.4 on 03/01 and plateau'd ever since. likely ischemic ATN though HRS, glomerular process also on differential -daily bmp -renal u/s w/ mild L hydronephrosis on 03/03 > f/u; not obvious on CT -will start lasix 10 mg IV tid 0700, noon, 1700 > and for today will give at 1100, 1500, 1900 -no fluid limit while on liquid diet -daily STANDING weight -defer to primary service if paracentesis indicated -transfuse prn (2) Chronic systolic heart failure: Plan: care w/ fluid resuscitation (3) Hyperkalemia: Plan: improving. K 4.4 this am and 6.4 on presentation -continue lasix which is improving K >low K diet to continue >will make veltassa q 48 hr, next dose 03/06 (4) Hyponatremia: Plan: improving. a/w sNa 122> improved to 126 > 128 > 131 clearly hypervolemic hyponatremia >no FR while on liquid diet >tid lasix dosing as above trying to preserve sleep goal sNa is no more than 135 for am (5) Acute on chronic anemia: Plan: per primary service and GI transfuse prn Admission and Anticipated Discharge Date Admission Date: March 01, 2023 Subjective GI recommends full liquids x 3 days; daily 40 mg PPI x 6 wks; octreotid; repeat EGD in 6 wks, broad spectrum abtx; seen on late AM rounds > denies sob N/V voiding c/o worsening edema. does state abdomen even more distended in last hour or so Review of Systems 2 Review of Systems: All systems reviewed & are unremarkable except as noted in Subjective Physical Exam 2 Constitutional: well developed, + thin, + frail appearing and cooperative; no acute distress Eyes: EOM intact bilaterally ENMT: Ears: no external ear abnormality Nose: no external nose abnormality Mouth: + dry oral mucous membranes Neck: no nuchal rigidity Respiratory: normal respiratory effort Auscultation: + diminished lung sounds Cardiovascular: Rate/Rhythm: regular rate and regular rhythm Extremities: + edema (2+ below the knee edema) Gastrointestinal (Abdomen): Inspection/Auscultation: + abdomen distended (more than last exam) and normal bowel sounds Percussion/Palpation: abdomen soft, + ascites, + dullness to percussion and + fluid wave; abdomen nontender Musculoskeletal: Extremities: strength 5/5 throughout Skin: no rashes, warm and dry Results & Data Vital Signs (Past 12 Hours) Vital Signs Temp Pulse Pulse Resp BP Pulse Ox O2 Del Method 03/04/23 07:01 36.7 C 83 18 101/60 95 Room Air 03/04/23 03:00 37.2 C 82 16 101/45 L 96 Room Air 03/04/23 02:38 79 03/03/23 23:00 36.5 C 77 18 102/62 96 Room Air Laboratory Results 03/04/23 07:04 03/04/23 07:04
--- NOTE | 2023-03-04 11:48 | Hospitalist Progress Note ---
Date of Service March 04, 2023 Assessment & Plan (1) Acute on chronic anemia: (2) Acute kidney injury superimposed on chronic kidney disease: (3) Acute hyperkalemia: (4) Chronic systolic heart failure: (5) Acute renal failure: (6) Malnutrition: (7) Hyponatremia: (8) PAF (paroxysmal atrial fibrillation): (9) Hypothyroidism: (10) Diabetes mellitus, type 2: (11) Marginal zone lymphoma: (12) Alcoholic cirrhosis of liver with ascites: Plan Pt is an 82yoM with PMHx significant for marginal cell lymphoma, DMII, CAD s/p stent placement, a fib, hypothyroidism, alcoholic cirrhosis admitted with electrolyte abnormalities and worsening ascites. Alcoholic cirrhosis of liver with ascites s/p Diagnostic paracentesis in the ED- no SBP US liver noted cirrhosis with ascites and patent portal veins On Lasix, received albumin Holding home spironolactone GI recs on 03/04 -consider a repeat therapeutic paracentesis with albumin infusion -further discussion, GI recommending taking off 5L with albumin 25% 25g before and after Nephrology recs- appreciate recs for diuretics -recommending renal US/CT abd/pelvis w/o contrast -deferring for need for paracentesis -IV Lasix diuresis Cardiology consulted for chest pain -believes related to need for paracentesis, recommending therapeutic paracentesis -recommending aggressive diuresis as well Order placed for paracentesis, discussed with bone char kiln operator radiology provider- considering paracentesis PM of 03/04- Appreciate assistance this weekend. pt received albumin at 3:57PM, albumin ordered for tonight after para Anemia requiring transfusion Pt with anemia below 7 requiring transfusion of 1U pRBC on 03/02 and 03/03 Suspicious for acute GI bleed, pt with known esophageal varices EGD with GI on 03/03 -noted Grade III esophageal varices with signs of bleeding, portal hypertensive gastropathy -varices were banded -started on Octreotide -full liquid diet x 3 days -pantoprazole 40mg daily x 6 weeks -repeat EGD in 6 weeks for retreatment -prophylactic broad spectrum antibiotics until discharge Hemoccult/FOBT pending Holding home Eliquis and aspirin Continue to monitor hgb levels PAF CAD Stable Angina Pt with chest pain, last episode on 03/04 Cardiology consulted- -recommending paracentesis for symptomatic relief of pt's chest pain -Increased IV lasix for aggressive diuresis -continue home Imdur and metoprolol Hypotension Multifactorial including cirrhosis with ascites and pt with acute GI bleed Continue midodrine- dose increased to 10mg TID Continue to monitor Appreciate cardiology and nephrology recs Acute renal failure Cr elevated above baseline Multifactorial but likely due to low effective arterial volume in setting of worsening ascites and poor PO intake. Hold home losartan and spironolactone Appreciate nephrology recs Hyperkalemia Patient with K about 5 per outpatient record review. 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 While admitted, cont basal/bolus insulin. Nutrition recommending not resuming home ozempic on d/c Hypothyroidism Recent TSH on 02/22 is 14.90. Recently increased Synthroid to 225mcg by PCP. Cont current dose PCP to adjust as outpatient PAF (paroxysmal atrial fibrillation) on lifelong AC, no bleeding issues reported Holding apixaban in setting of anemia requiring transfusion noted above Malnutrition poor PO intake for 3 months. Nutrition consulted. Nutrition recommending not resuming home ozempic on d/c Diet: low sodium, low potassium, DMII, fluid restriction of 1500ml DVT prophylaxis: Holding home eliquis in setting of anemia requiring transfusion Full Code as confirmed with patient on admission. Admission and Anticipated Discharge Date Admission Date: March 01, 2023 Subjective pt seen in the AM. Was resting comfortably, no acute concerns. Was later told that pt was having chest pain. In speaking to him, noted that when it happens at home he takes a nitro. Received nitroglycerin overnight. Review of Systems Review of Systems: All systems reviewed & are unremarkable except as noted in Subjective Physical Exam Physical Exam: General: Alert, oriented. No acute distress Skin: No noted rashes or bruises Psych: Appropriate mood and affect Neuro: No gross deficits HEENT: NC/AT Chest: Nontender to palpation. CV: RRR Resp: Breath sounds decreased bilaterally, no increased effort of breathing. Abdomen: Distended, firm Extremities: edema in lower extremities bilaterally. Results & Data Results & Data Vital Signs (Past 12 Hours) Vital Signs Temp Pulse Pulse Resp BP Pulse Ox O2 Del Method 03/04/23 11:27 36.3 C L 80 18 93/58 L 95 Room Air 03/04/23 08:00 Room Air 03/04/23 08:00 85 03/04/23 07:01 36.7 C 83 18 101/60 95 Room Air 03/04/23 03:00 37.2 C 82 16 101/45 L 96 Room Air 03/04/23 02:38 79 (5) Acute renal failure Acute renal failure type: unspecified Qualified Code(s): N17.9 - Acute kidney failure, unspecified
[2023-03-04] MEDS: FUROSEMIDE INJ 20 MG/2 ML VIAL IV SCH ×2 (12:02→15:47)
[2023-03-04] MEDS ORDERED: ALBUMIN 25% 25 GM/100 ML VIAL IV ONE (15:05)
[2023-03-04] MEDS ORDERED: NITROGLYCERIN SL 0.4 MG/TAB TAB SL STA (15:22)
--- NOTE | 2023-03-04 15:46 | Electrocardiogram Report ---
Test Reason : Blood Pressure : / mmHG Vent. Rate : 071 BPM Atrial Rate : 071 BPM P-R Int : 190 ms QRS Dur : 082 ms QT Int : 370 ms P-R-T Axes : -20 -30 041 degrees QTc Int : 402 ms Sinus rhythm with occasional Premature ventricular complexes Left axis deviation Low voltage QRS Old Inferior infarct (cited on or before 01-MAR-2023) Old Anterolateral infarct (cited on or before 01-MAR-2023) Abnormal ECG When compared with ECG of 03-MAR-2023 22:25, Premature ventricular complexes are now Present Confirmed by Ari Howell ([id number]) on 03/04/2023 3:45:59 PM Referred By: Herb Hydeon Confirmed By:Ari Howell
--- NOTE | 2023-03-04 16:13 | Cardiology Consultation ---
Date of Consultation March 04, 2023 Assessment & Plan (1) Acute systolic (congestive) heart failure: (2) Hypotension: (3) Multi-vessel coronary artery stenosis: Plan Chronic stable chest pressure, multifactorial Patient with known severe multivessel coronary artery disease status post remote CABG, AND with poor targets for PCI Acute decompensated systolic congestive heart failure, hypervolemic hyponatremia Moderately severe ischemic cardiomyopathy, EF 30 to 34% Chronic ventricular ectopy Paroxysmal atrial fibrillation Alcoholic cirrhosis of liver with ascites Recommend more aggressive IV diuresis Recommend Lawrence catheter placement Supplement magnesium Continue medical management for the patient's severe coronary artery disease Resume aspirin 81 mg/day as soon as possible Continue metoprolol succinate without interruption. Continue isosorbide mononitrate 60 mg/day Suspect patient may benefit symptomatically from repeat paracentesis Maintain hemoglobin of at least 8 g/dL. Supervising Physician Co-Signing Physician Notes Complex 82-year-old gentleman seen and examined at the bedside. Admitted March 01 due to worsening ascites complicated by symptomatic anemia and upper GI bleeding status post transfusion. Complains of intermittent chest pressure, abdominal bloating, and edema. History of severe coronary disease without targets for intervention as well as ischemic cardiomyopathy. PE: Gen: No acute distress at rest. Hard of hearing. Heart: Regular rhythm, normal S1-S2. Distant heart sounds. No murmur. Lungs: Diminished breath sounds at the bases bilateral. Abdomen: Distended, nontender. Extremities: + Edema. A/P: Agree with above PA-C history, physical exam, assessment and plan. Patient appears markedly volume overloaded with ascites and edema. Agree with aggressive IV diuresis and Lawrence catheter placement. Continue medical management of chronic severe underlying coronary disease. Resume aspirin when able. Continue metoprolol succinate and isosorbide monohydrate as blood pressure allows. Consider referral for repeat paracentesis. Maintain hemoglobin of at least 8.0 g/dL given underlying ischemic heart disease. History of Present Illness Reason for Consultation: Chest pain, PVC's Requesting Physician: Dr. Layton Attending Physician: Calin History of Present Illness 82-year-old male admitted to [facility] on March 01, 2023 with electrolyte abnormalities and worsening ascites. Course complicated by symptomatic anemia with hemoglobin down to 6.9 g/dL, upper GI bleeding, receiving 1 U PRBC's on 03/02 and 03/03. EGD on 03/03 with grade III esophageal varices with signs of bleeding, portal hypertensive gastropathy. Varices banded. Octreotide prescribed along with pantoprazole. Aspirin and Eliquis held, and remain on hold. Course further complicated by hypotension felt to be multifactorial in etiology. Patient prescribed midodrine 10 mg 3 times per day. High-dose beta- javon therapy held yesterday. Earlier today patient was noted to have chest pressure across the upper abdomen and lower chest for approximately 2 hours in duration. EKG without acute change. + Abdominal bloating and fullness + Lower extremity peripheral edema + Chronic stable chest pressure across the upper abdomen and lower chest, symptoms consistent with prior/stable angina, chronically occasionally taking one sublingual nitroglycerin with perceived benefit about once per month Severe longstanding multivessel coronary artery disease Inferior wall SC in February 1998 Status post CABG in July 2013 including a GORMAN to the LAD, SVG to OM 1 and OM 2, SVG to the PDA Ischemic cardiomyopathy Ascending aortic enlargement Hypertension Dyslipidemia Type 2 diabetes mellitus Catheterization in 12/2017 revealed new occlusion of SVG-OM1. Poor targets for PCI noted. Imdur and Toprol increased. Catheterization in June 2020 ([facility]) L main 20% Lad totally occluded and fills distally with SVG, no signif disease noted beyond the graft insertion but proximal and mid lad before it is occluded has Dx with 60%. The SVG has a proximal unusual circular shaped lesion which does not appear to obstruct flow.. The proximal 40% LCx with a total occlusion of some OM's with late filling from collaterals noted Rca totally occluded, filling distally via collaterals. GORMAN appeared occluded proximally.. Left subclavian had a 90 degree bend noted within it no other grafts found October 2022 TTE: The qualitative LV ejection fraction is 30-34% (moderately reduced). There is a large sized anterior, inferior, posterior, and lateral wall motion abnormality with akinesis to dyskinesis of the segments. There is a moderate sized posterior and lateral aneurysm. Mild mitral regurgitation is present. A trivial posterior loculated pericardial effusion is present. Cardiac tamponade is absent. The aortic root (4.0 cm) and proximal ascending aorta (4.1 cm) are mildly enlarged. Compared to prior echocardiogram from 10/11/16, there is a new trivial pericardial effusion. Otherwise no change. Allergies Allergy/AdvReac Type Severity Reaction Status Date / Time Iodinated Contrast Media Allergy Severe IVP DYE = Verified 03/01/23 15:34 ANAPHYLAXIS lisinopril AdvReac Cough Verified 03/01/23 15:34 Home Medications Medication Instructions Recorded Confirmed Type acetaminophen 325 mg tablet 325 mg PO Q6H PRN Pain 02/02/19 03/01/23 History (Tylenol) amoxicillin 500 mg tablet 2,000 mg PO UD PRN prior to dental 02/02/19 03/01/23 History procedures apixaban 5 mg tablet (Eliquis) 2.5 mg PO BID 02/02/19 03/01/23 History aspirin 81 mg tablet,delayed 81 mg PO QAM 02/02/19 03/01/23 History release (Sharita Low Dose Aspirin) atorvastatin 80 mg tablet 80 mg PO QPM 02/02/19 03/01/23 History diphenoxylate-atropine 2.5 1 tab PO QID PRN Diarrhea 02/02/19 03/01/23 History mg-0.025 mg tablet (Lomotil) ferrous sulfate 325 mg (65 mg 325 mg PO BID 02/02/19 03/01/23 History iron) tablet,delayed release furosemide 20 mg tablet 20 mg PO QAM 02/02/19 03/01/23 History hydrocodone 7.5 mg-acetaminophen 1 tab PO Q8H PRN Pain 02/02/19 03/01/23 History 325 mg tablet magnesium oxide 800 mg PO BID 02/02/19 03/01/23 History metformin 850 mg tablet 850 mg PO BID 02/02/19 03/01/23 History metoprolol succinate 100 mg 100 mg PO QAM 02/02/19 03/01/23 History tablet,extended release 24 hr swyywfrx-kfsvcdrr-kkxjg acid 400 1 tab PO QPM 02/02/19 03/01/23 History mcg-vit K 20 mcg-lycop 300 mcg tablet (One-A-Day Men's Multivitamin) nitroglycerin 0.4 mg sublingual 0.4 mg sublingual UD PRN Angina 02/02/19 03/01/23 History tablet tamsulosin 0.4 mg capsule 0.4 mg PO HS 02/02/19 03/01/23 History triamcinolone acetonide 0.1 % 1 applic topical BID PRN Rash 02/02/19 03/01/23 History topical cream famotidine 20 mg tablet (Pepcid) 20 mg PO BID 09/23/20 03/01/23 History ondansetron 8 mg disintegrating 8 mg PO Q12H PRN Nausea 02/19/21 03/01/23 History tablet isosorbide mononitrate 60 mg 60 mg PO QAM 11/25/22 03/01/23 History tablet,extended release 24 hr albuterol sulfate 90 mcg/actuation 2 puff inhalation TID 03/01/23 03/01/23 History aerosol inhaler (Proventil HFA) glipizide 10 mg tablet, extended 20 mg PO DAILY 03/01/23 03/01/23 History release 24 hr levothyroxine 200 mcg tablet 200 mcg PO QAM 03/01/23 03/01/23 History levothyroxine 25 mcg tablet 25 mcg PO DAILYBB 03/01/23 03/01/23 History losartan 25 mg tablet 25 mg PO DAILY 03/01/23 03/01/23 History metoclopramide HCl 10 mg tablet 10 mg PO DAILY 03/01/23 03/01/23 History pantoprazole 40 mg tablet,delayed 40 mg PO QAM 03/01/23 03/01/23 History release semaglutide 1 mg/dose (4 mg/3 mL) 1 mg subcut .Q WED 03/01/23 03/01/23 History subcutaneous pen injector (Ozempic) spironolactone 50 mg tablet 50 mg PO QAM 03/01/23 03/01/23 History torsemide 20 mg tablet 40 mg PO DAILY 03/01/23 03/01/23 History Patient History Medical History CKD (chronic kidney disease) stage 3, GFR 30-59 ml/min Chronic systolic heart failure PAF (paroxysmal atrial fibrillation) Marginal zone lymphoma dx 12/2020, no chemo or radiation, only gets infusion of antibodies and plasma, and iron infusion weekly, [facility] oncology Congestive heart failure Heart attack 1996, [facility]-flown to [facility], had cath no stents>pursued medication route vs. bypass route 05/2020, [facility]. heart cath, no stents at that time. "weak muscle on the bottom right side" follows with Dr Lewis ([facility] Cardiology) Osteoarthritis Chronic back pain Kidney stones hx Cirrhosis Hypothyroidism Diabetes mellitus, type 2 On anticoagulant therapy eliquis daily>as of 12/2022, medication on hold Hypertension Hyperlipidemia Myocardial Infarction x3--1988/1996/--follows with Júnior Lewis NP @ [facility] 1996, [facility]-flown to [facility], had cath no stents>pursued medication route vs. bypass route 2003-[facility] for cardiac cath, no stents 2005, [facility] for cardiac cath, x2 stents Surgical History History of surgical removal of ganglion cyst left hand Status post trigger finger release x2--1 on each hand History of carpal tunnel release of both wrists History of thoracic spinal fusion x2 History of lumbar spinal fusion x2 History of fusion of cervical spine normal ROM History of left shoulder replacement History of total left hip replacement History of arthroscopy of left knee x3 History of nephrolithotomy with removal of calculi x2 History of cystoscopy x2 Hx of transurethral resection of prostate Status post biopsy of kidney normal History of right inguinal hernia repair History of colonoscopy History of esophagogastroduodenoscopy (EGD) History of cholecystectomy History of tooth extraction all top teeth removed History of wisdom tooth extraction History of heart artery stent x2 stents placed 2005 @ [facility] History of cardiac cath 1996, no stents; x2; 2003 (no stents); 2005-2 stents; 05/2020-no stents>all done [facility] History of quadruple bypass 2003 @ [facility], "felt off" had cath>had bypass Family History Mother Family history of diabetes mellitus Father Family history of diabetes mellitus Brother Family history of diabetes mellitus Family hx of colon cancer Family hx colonic polyps Sister Family history of diabetes mellitus Brother Family history of diabetes mellitus Family hx of colon cancer Family hx colonic polyps Brother Family history of diabetes mellitus Sister Family history of diabetes mellitus Sister Family history of diabetes mellitus Sister Family history of diabetes mellitus Grandfather (Maternal) Family history of diabetes mellitus Grandfather (Paternal) Family history of diabetes mellitus Grandmother (Paternal) Family history of diabetes mellitus Grandmother (Maternal) Family history of diabetes mellitus Other No family history of adverse response to anesthesia Social History Smoking Status: Never smoker Second Hand Exposure: No; Do You Dip or Chew Tobacco: No; Hx Alcohol Use: No Hx Substance Use: No Preferred Language: Gibraltarian Communication Ability: Effective 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 NAD. Pale HENT: Normocephalic. Atraumatic. Eyes: PER. Conjunctiva pink, sclera clear. Neck: JVD. Heart: Irregular with occasional ectopy. Distant heart sounds. No murmur appreciated. Lungs: Decreased at the bases however clear to auscultation Abdomen: +BS. Firm. Distended. Extremities: 2-3+ pitting edema. Results & Data Vital Signs (Past 12 Hours) Vital Signs Temp Pulse Pulse Resp BP Pulse Ox O2 Del Method 03/04/23 14:48 36.3 C L 98 H 19 97/57 L 91 Room Air 03/04/23 11:27 36.3 C L 80 18 93/58 L 95 Room Air 03/04/23 08:00 Room Air 03/04/23 08:00 85 03/04/23 07:01 36.7 C 83 18 101/60 95 Room Air Laboratory Results Cardiac Enzymes 03/03/23 03/04/23 Range/Units 22:32 07:04 AST 12 L (13-39) U/L Troponin I High Sens 19.7 D (0-20) pg/ml Coagulation 03/03/23 Range/Units 22:32 APTT 33.2 H (21.0-31.0) Seconds CBC 03/03/23 03/04/23 Range/Units 17:26 07:04 WBC 3.33 L (4.8-10.8) K/ul RBC 2.72 L (4.70-6.10) M/uL Hgb 9.3 L 8.0 L (14.0-18.0) g/dl Hct 28.4 L 24.1 L (42.0-52.0) % Plt Count 122 L (130-400) K/uL Neut # (Auto) 2.13 (1.40-6.50) K/uL Lymph # (Auto) 0.54 L (1.20-3.40) K/uL [place] # (Auto) 0.45 (0.11-0.59) K/uL Eos # (Auto) 0.12 (0.00-0.50) K/uL Baso # (Auto) 0.05 (0.00-0.20) K/uL Comprehensive Metabolic Panel 03/03/23 03/04/23 Range/Units 17:26 07:04 Sodium 128 L 131 L (136-145) mmol/L Potassium 5.3 H 4.6 (3.5-5.1) mmol/L Chloride 97 L 100 (98-107) mmol/L Carbon Dioxide 24 24 (21-32) mmol/L BUN 39 H 37 H (6-23) mg/dl Creatinine 2.32 H 2.17 H (0.6-1.4) mg/dl Glucose 125 H 145 H (70-99(Fasting)) mg/dl Calcium 9.1 8.5 L (8.6-10.3) mg/dl AST 12 L (13-39) U/L ALT 9 (7-52) U/L Alkaline Phosphatase 58 (34-104) U/L Total Protein 5.2 L (6.0-8.3) gm/dl Albumin 3.5 (3.4-5.0) gm/dl Intake and Output 03/04/23 03/04/23 03/04/23 06:59 14:59 22:59 Intake Total 160 / 992.988 150.5 / 590.5 440 / 590.5 Output Total 1200 / 1600 400 / 400 Balance -1040 / -607.012 150.5 / 190.5 40 / 190.5 Intake: IV 100 / 332.988 150.5 / 150.5 Albumin 25% 25 gm In 100 ml @ 100 / 100 50 mls/hr IV ONE ONE Rx#: [id number] Octreotide Acetate 500 mcg In 0 100.5 / 100.5 .9 % Sodium Chloride 100 ml @ 50 MCG/HR 10.05 mls/hr IV .Q10H [facility] Rx#:[id number] cefTRIAXone SODIUM 2,000 mg In 50 / 50 Dextrose 5 % Mini-B 50 ml @ 100 mls/hr IV Q24H [facility] Rx#: [id number] Oral 60 / 560 440 / 440 Output: Urine 1200 / 1600 400 / 400 Other: Weight 92.3 kg Weight Measurement Method Standing Scale
[2023-03-04] MEDS ORDERED: FUROSEMIDE INJ 20 MG/2 ML VIAL IV SCH (19:00)
[2023-03-04] MEDS ORDERED: ALBUMIN 25% 25 GM/100 ML VIAL IV SCH ×2 (19:30→22:00)
--- NOTE | 2023-03-04 20:34 | Ultrasound Report ---
IR paracentesis abd w/img US CLINICAL HISTORY: ascites on imaging, exam COMPARISON STUDY: CT of the abdomen and pelvis March 03, 2023. PROCEDURE: The procedure, risks and benefits were discussed with the patient and informed written con sent was obtained. The procedure was performed by Dr. Gutiérrez following a timeout. Suitable window for paracentesis within the left lower quadrant was identified. Skin was prepped and draped in steril e fashion and local anesthesia was achieved with 1% lidocaine. 5 English catheter was inserted into th e peritoneal cavity with immediate return of serous ascites. A total 5 L of ascites was withdrawn as ordered. The catheter was removed. The patient tolerated the procedure well and no immediate complica tions were evident. 1 L of ascites was sent to the laboratory as ordered. IMPRESSION: Successful ultrasound guided diagnostic and therapeutic paracentesis with drainage of 5 L of serous ascites. 1 L of ascites sent to the laboratory for analysis as ordered. ACT 112: Negative or not required by law. Electronically signed by: Ede Gutiérrez M.D. 03/04/2023 8:31 PM
[2023-03-04] MEDS: TAMSULOSIN HCL 0.4 MG CAP PO SCH (20:38)
[2023-03-04] MEDS: ATORVASTATIN 40 MG TAB PO SCH (20:38)
[2023-03-04 21:25] LABS: Glucose Peritoneal Fluid 139 mg/dl; LDH Peritoneal Fluid 44 U/L; Total Protein Peritoneal Fluid < 3.0 gm/dl
[2023-03-04 22:26] LABS: Appearance Peritoneal Fluid Slightly Hazy; Color Peritoneal Fluid Straw; Lymphocytes, Fluid 43 %; Mono,Macrophage,Mesothelial 57 %; Neutrophils, Fluid 0 %; RBC Peritoneal Fluid Auto < 2000 /uL; WBC Peritoneal Fluid Auto 200 /ul (0-300)
[2023-03-05] MEDS: OCTREOTIDE ACETATE 500 MCG in 0.9 % SODIUM CHLORIDE 100 ML IV SCH ×2 (03:02→13:21)
[2023-03-05] MEDS: LEVOTHYROXINE SODIUM 200 MCG TABLET PO SCH (06:10)
[2023-03-05] MEDS: LEVOTHYROXINE SODIUM 25 MCG TABLET PO SCH (06:10)
[2023-03-05] MEDS ORDERED: FUROSEMIDE INJ 20 MG/2 ML VIAL IV SCH (07:00)
[2023-03-05] MEDS: INSULIN ASPART PER UNIT CHARGE SC SCH ×4 (07:43→20:37)
[2023-03-05 07:50] LABS: Basophils # (auto) 0.03 K/uL (0.00-0.20); Basophils % (auto) 0.8 %; Eosinophils # (auto) 0.14 K/uL (0.00-0.50); Eosinophils % (auto) 3.7 %; Hematocrit (blood only) 24.3 % (42.0-52.0); Hemoglobin 7.8 g/dl (14.0-18.0); Immature Granulocytes # (auto) 0.04 K/uL (0.01-0.20); Immature Granulocytes % (auto) 1.1 %; Lymphocytes # (auto) 0.54 K/uL (1.20-3.40); Lymphocytes % (auto) 14.4 %; Mean Corpuscular Hemoglobin 29.1 pg (25.0-34.0); Mean Corpuscular Hgb Conc 32.1 g/dL (32.0-36.0); Mean Corpuscular Volume 90.7 fL (80.0-100.0); Mean Platelet Volume 9.2 fL (9.4-12.4); Monocytes % (auto) 13.3 %; Neutrophils % (auto) 66.7 %; Platelet Count 119 K/uL (130-400); RDW Coefficient of Variation 17.8 % (11.5-14.5); RDW Standard Deviation 57.2 fL (36.4-46.3); Red Blood Count 2.68 M/uL (4.70-6.10); White Blood Count 3.75 K/ul (4.8-10.8)
[2023-03-05] MEDS: ISOSORBIDE MONO EXTENDED REL 60 MG TABCR PO SCH (08:17)
[2023-03-05] MEDS: METOCLOPRAMIDE HCL 10 MG TABLET PO SCH (08:17)
[2023-03-05] MEDS: PANTOprazole 40 MG TAB PO SCH (08:17)
[2023-03-05] MEDS: FAMOTIDINE 20 MG TAB PO SCH ×2 (08:18→21:02)
[2023-03-05] MEDS: MIDODRINE HCL 10 MG TAB PO SCH ×3 (08:18→16:47)
[2023-03-05 08:29] LABS: Albumin Level 3.3 gm/dl (3.4-5.0); Bilirubin,Total 0.6 mg/dl (0.2-1.0); Calcium 8.3 mg/dl (8.6-10.3); Magnesium 1.7 mg/dl (1.7-2.4); Potassium 4.3 mmol/L (3.5-5.1)
[2023-03-05 08:34] LABS: Polychromasia 1+
[2023-03-05 08:35] LABS: Albumin Globulin Ratio 2.1 (0.9-2); BUN Creatinine Ratio 16.2 (10-20); Creatinine Clr Calc Pharmacy 28.1 ml/min; Est GFR (African American) 33.9 ml/min; Est GFR (Non-African American) 29.3 ml/min; Globulin 1.6 gm/dl (2.5-4.0); Phosphorus 3.6 mg/dl (2.5-4.9); Total Protein 4.9 gm/dl (6.0-8.3)
[2023-03-05] MEDS: METOPROLOL SUCC 50MG EXT REL TAB PO SCH (09:18)
[2023-03-05] MEDS: cefTRIAXone SODIUM 2,000 MG in DEXTROSE 5 % MINI-B 50 ML IV SCH (11:28)
--- NOTE | 2023-03-05 12:58 | Nephrology Progress Note ---
Date of Service March 05, 2023 Assessment & Plan (1) Acute kidney injury superimposed on chronic kidney disease: Plan: stable EDMAR nonoliguric stage 1 on nonproteinuric CKD 3B w/ electrolyte issues as below. progressive ckd in 2022 > baseline in late summer mid . admission creatinine 2.3-2.4 on 03/01 and plateau'd ever since. likely ischemic ATN though HRS, glomerular process also on differential - Improving sCR - daily bmp -renal u/s w/ mild L hydronephrosis on 03/03 > f/u; not obvious on CT -Continue on start lasix 10 mg IV tid, BP has been soft , but he is tolerating it. -no fluid limit while on liquid diet -daily STANDING weight -defer to primary service if paracentesis indicated -transfuse prn (2) Chronic systolic heart failure: Plan: care w/ fluid resuscitation (3) Hyperkalemia: Plan: improved 6.4 on presentation -continue lasix which is improving K >low K diet to continue > veltassa q 48 hr, next dose 03/06 (4) Hyponatremia: Plan: improving. a/w sNa 122> improved to 126 > 128 > 131>132 clearly hypervolemic hyponatremia >no FR while on liquid diet >tid lasix dosing as above trying to preserve sleep (5) Acute on chronic anemia: Plan: per primary service and GI transfuse prn Admission and Anticipated Discharge Date Admission Date: March 01, 2023 Subjective Resting comfortably, no acute concerns Feels a lot comfortbale after Paracentesis.. . Review of Systems 2 Review of Systems: All systems reviewed & are unremarkable except as noted in HPI & below Physical Exam 2 Physical Exam: Constitutional: well developed, + thin, + frail appe aring and cooperat thien; no acute dist ress Eyes: EOM intact bilater ally ENMT: Ears: no external ear abnormality N ose: no external n ose abnormality M outh: + dry oral m ucous membranes Neck: no nuchal rigidity Respiratory: normal respiratory effort Auscultat ion: + diminished lung sounds Cardiovascular: Rate/Rhythm: regul ar rate and regula r rhythm Extremit ies: + edema (2+ b elow the knee faye a) Gastrointestinal ( Abdomen): Inspection/Auscult ation: + abdomen d istended (more juan n last exam) and n ormal bowel sounds Percussion/Palpa tion: abdomen soft , + ascites, + dul lness to percussio n and + fluid wave ; abdomen nontende r Musculoskeletal: Extremities: stren gth 5/5 throughout Skin: no rashes, warm an d dry Results & Data Vital Signs (Past 12 Hours) Vital Signs Temp Pulse Pulse Resp BP Pulse Ox O2 Del Method 03/05/23 11:18 36.4 C L 80 18 96/54 L 96 Room Air 03/05/23 07:31 63 03/05/23 07:03 36.8 C 67 19 93/54 L 92 Room Air 03/05/23 03:06 36.8 C 74 16 94/56 L 93 Room Air Laboratory Results 03/05/23 07:12 03/05/23 07:12
--- NOTE | 2023-03-05 13:10 | Cardiology Progress Note ---
Date of Service March 05, 2023 Assessment & Plan (1) Acute systolic (congestive) heart failure: (2) Hypotension: (3) Multi-vessel coronary artery stenosis: Plan Chronic stable chest pressure, multifactorial Patient with known severe multivessel coronary artery disease status post remote CABG, AND with poor targets for PCI Acute decompensated systolic congestive heart failure, hypervolemic hyponatremia Moderately severe ischemic cardiomyopathy, EF 30 to 34% Chronic ventricular ectopy Paroxysmal atrial fibrillation Alcoholic cirrhosis of liver with ascites Recommend more aggressive IV diuresis Start IV lasix 40mg BID s/p 5L paracentesis. Plans for repeat Tuesday. Recommend Lawrence catheter placement Supplement magnesium Continue medical management for the patient's severe coronary artery disease Continue metoprolol succinate without interruption. Continue isosorbide mononitrate 60 mg/day Maintain hemoglobin of at least 8 g/dL. I provided 55 min of care to the patient in regards to acute exacerbation of HFrEF and cirrhosis. Admission and Anticipated Discharge Date Admission Date: March 01, 2023 Subjective Resting comfortably, no acute concerns. No chest pain. No N/V/BRADSHAW; afebrile. No PND or orthopnea. Review of Systems Review of Systems: Complete review of systems is otherwise as stated above, negative, noncontributory Physical Exam Physical Exam: General: A&Ox3. NAD. Pale HENT: Normocephalic. Atraumatic. Eyes: PER. Conjunctiva pink, sclera clear. Neck: JVD. Heart: Irregular with occasional ectopy. Distant heart sounds. No murmur appreciated. Lungs: Decreased at the bases however clear to auscultation Abdomen: +BS. Firm. Distended. Extremities: 2+ pitting edema. Results & Data Vital Signs (Past 12 Hours) Vital Signs Temp Pulse Pulse Resp BP Pulse Ox O2 Del Method 03/05/23 11:18 36.4 C L 80 18 96/54 L 96 Room Air 03/05/23 07:31 63 03/05/23 07:03 36.8 C 67 19 93/54 L 92 Room Air 03/05/23 03:06 36.8 C 74 16 94/56 L 93 Room Air Results BMP Results: Sodium 133 mmol/L (136-145) L 03/05/23 Potassium 4.3 mmol/L (3.5-5.1) 03/05/23 Chloride 102 mmol/L (98-107) 03/05/23 Carbon Dioxide 24 mmol/L (21-32) 03/05/23 Anion Gap 7 (3-11) 03/05/23 BUN 33 mg/dl (6-23) H 03/05/23 Creatinine 2.04 mg/dl (0.6-1.4) H 03/05/23 Glucose 138 mg/dl (70-99(Fasting)) H 03/05/23 Results CBC w Diff Results: RBC 2.68 M/uL (4.70-6.10) L 03/05/23 WBC 3.75 K/ul (4.8-10.8) L 03/05/23 Hgb 7.8 g/dl (14.0-18.0) L 03/05/23 Hct 24.3 % (42.0-52.0) L 03/05/23 MCV 90.7 fL (80.0-100.0) 03/05/23 MCH 29.1 pg (25.0-34.0) 03/05/23 MCHC 32.1 g/dL (32.0-36.0) 03/05/23 RDW Standard Deviation 57.2 fL (36.4-46.3) H 03/05/23 RDW Coefficient of Variation 17.8 % (11.5-14.5) H 03/05/23 Plt Count 119 K/uL (130-400) L 03/05/23 MPV 9.2 fL (9.4-12.4) L 03/05/23 Neutrophils (%) (Auto) 66.7 % 03/05/23 Lymphocytes (%) (Auto) 14.4 % 03/05/23 Monocytes # (Auto) 0.50 K/uL (0.11-0.59) 03/05/23 Eosinophils # (Auto) 0.14 K/uL (0.00-0.50) 03/05/23 Immature Granulocyte % (Auto) 1.1 % 03/05/23 Neutrophils # (Auto) 2.50 K/uL (1.40-6.50) 03/05/23 Lymphocytes # (Auto) 0.54 K/uL (1.20-3.40) L 03/05/23 Monocytes # (Auto) 0.50 K/uL (0.11-0.59) 03/05/23 Eosinophils # (Auto) 0.14 K/uL (0.00-0.50) 03/05/23 Basophils # (Auto) 0.03 K/uL (0.00-0.20) 03/05/23 Immature Granulocyte # (Auto) 0.04 K/uL (0.01-0.20) 3 Polychromasia 1+ 03/05/23 Poikilocytosis Present 03/03/23
--- NOTE | 2023-03-05 14:47 | Hospitalist Progress Note ---
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 Alcoholic cirrhosis of liver with ascites s/p Diagnostic paracentesis in the ED- no SBP US liver noted cirrhosis with ascites and patent portal veins On Lasix, received albumin Holding home spironolactone GI recs on 03/04 -consider a repeat therapeutic paracentesis with albumin infusion -further discussion, GI recommending taking off 5L with albumin 25% 25g before and after -s/p diagnostic and therapeutic paracentesis on 03/04- 5L of fluids removed, pt notes marked improvement in his symptoms. Appreciate radiology assistance o korina the weekend. Nephrology recs- appreciate recs for diuretics -recommending renal US/CT abd/pelvis w/o contrast -deferring for need for paracentesis -IV Lasix diuresis Cardiology consulted for chest pain -believes related to need for paracentesis, recommending therapeutic paracentesis -recommending aggressive diuresis as well -s/p diagnostic and therapeutic paracentesis on 03/04- 5L of fluids removed, pt notes marked improvement in his symptoms. Appreciate radiology assistance over the weekend. Acute GI Bleed Anemia requiring transfusion Pt with anemia below 7 requiring transfusion of 1U pRBC on 03/02 and 03/03 Suspicious for acute GI bleed, pt with known esophageal varices EGD with GI on 03/03 -noted Grade III esophageal varices with signs of bleeding, portal hypertensive gastropathy -varices were banded -started on Octreotide -full liquid diet x 3 days -pantoprazole 40mg daily x 6 weeks -repeat EGD in 6 weeks for retreatment -prophylactic broad spectrum antibiotics until discharge Hemoccult/FOBT pending Holding home Eliquis and aspirin Continue to monitor hgb levels PAF CAD Stable Angina Pt with chest pain, last episode on 03/04 Cardiology consulted- -recommending paracentesis for symptomatic relief of pt's chest pain. (Pt s/p diagnostic and therapeutic paracentesis on 03/04- 5L of fluids removed, pt notes marked improvement in his symptoms. Appreciate radiology assistance over the weekend) -Increased IV lasix for aggressive diuresis -continue home Imdur and metoprolol Hypotension Multifactorial including cirrhosis with ascites and pt with acute GI bleed Continue midodrine- dose increased to 10mg TID Continue to monitor Appreciate cardiology and nephrology recs Acute renal failure Cr elevated above baseline Multifactorial but likely due to low effective arterial volume in setting of worsening ascites and poor PO intake. Hold home losartan and spironolactone Cr has been improving Appreciate nephrology recs Hyperkalemia Patient with K about 5 per outpatient record review. 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 While admitted, cont basal/bolus insulin. Nutrition recommending not resuming home ozempic on d/c Hypothyroidism Recent TSH on 02/22 is 14.90. Recently increased Synthroid to 225mcg by PCP. Cont current dose PCP to adjust as outpatient PAF (paroxysmal atrial fibrillation) on lifelong AC, no bleeding issues reported Holding apixaban in setting of anemia requiring transfusion noted above Malnutrition poor PO intake for 3 months. Nutrition consulted. Nutrition recommending not resuming home ozempic on d/c Diet: low sodium, low potassium, DMII, fluid restriction of 1500ml DVT prophylaxis: Holding home eliquis in setting of anemia requiring transfusion Full Code as confirmed with patient on admission. Admission and Anticipated Discharge Date Admission Date: March 01, 2023 Subjective Pt was resting comfortably. States that he feels much better now that the fluid has been removed. Notes that he has not had any further episodes of chest pain, states he was starting to get concerned. Otherwise denied acute concerns. Review of Systems Review of Systems: All systems reviewed & are unremarkable except as noted in Subjective Physical Exam Physical Exam: General: Alert, oriented. No acute distress Skin: No noted rashes or bruises Psych: Appropriate mood and affect Neuro: No gross deficits HEENT: NC/AT Chest: Nontender to palpation. CV: RRR Resp: Breath sounds decreased bilaterally, no increased effort of breathing. Abdomen: Distended, firm Extremities: edema in lower extremities bilaterally. Results & Data Results & Data Vital Signs (Past 12 Hours) Vital Signs Temp Pulse Pulse Resp BP Pulse Ox O2 Del Method 03/05/23 11:18 36.4 C L 80 18 96/54 L 96 Room Air 03/05/23 07:31 63 03/05/23 07:03 36.8 C 67 19 93/54 L 92 Room Air 03/05/23 03:06 36.8 C 74 16 94/56 L 93 Room Air (5) Acute renal failure Acute renal failure type: unspecified Qualified Code(s): N17.9 - Acute kidney failure, unspecified
[2023-03-05] MEDS: FUROSEMIDE 40 MG/4 ML VIAL IV SCH (16:45)
[2023-03-05] MEDS: ATORVASTATIN 40 MG TAB PO SCH (21:03)
[2023-03-05] MEDS: TAMSULOSIN HCL 0.4 MG CAP PO SCH (21:03)
[2023-03-06] MEDS: OCTREOTIDE ACETATE 500 MCG in 0.9 % SODIUM CHLORIDE 100 ML IV SCH ×3 (00:33→19:58)
[2023-03-06] MEDS: LEVOTHYROXINE SODIUM 200 MCG TABLET PO SCH (06:10)
[2023-03-06] MEDS: LEVOTHYROXINE SODIUM 25 MCG TABLET PO SCH (06:10)
[2023-03-06] MEDS: MIDODRINE HCL 10 MG TAB PO SCH ×3 (07:49→17:38)
[2023-03-06] MEDS: FUROSEMIDE 40 MG/4 ML VIAL IV SCH ×2 (07:49→17:38)
[2023-03-06] MEDS: INSULIN ASPART PER UNIT CHARGE SC SCH ×4 (07:50→21:02)
[2023-03-06] MEDS: METOPROLOL SUCC 50MG EXT REL TAB PO SCH (08:39)
[2023-03-06] MEDS: METOCLOPRAMIDE HCL 10 MG TABLET PO SCH (08:39)
[2023-03-06] MEDS: PANTOprazole 40 MG TAB PO SCH (08:39)
[2023-03-06] MEDS: FAMOTIDINE 20 MG TAB PO SCH ×2 (08:40→20:00)
[2023-03-06] MEDS: ISOSORBIDE MONO EXTENDED REL 60 MG TABCR PO SCH (08:40)
[2023-03-06 09:16] LABS: Basophils # (auto) 0.04 K/uL (0.00-0.20); Basophils % (auto) 0.8 %; Eosinophils # (auto) 0.09 K/uL (0.00-0.50); Eosinophils % (auto) 1.9 %; Hematocrit (blood only) 26.5 % (42.0-52.0); Hemoglobin 8.4 g/dl (14.0-18.0); Immature Granulocytes # (auto) 0.04 K/uL (0.01-0.20); Immature Granulocytes % (auto) 0.8 %; Lymphocytes # (auto) 0.68 K/uL (1.20-3.40); Lymphocytes % (auto) 14.1 %; Mean Corpuscular Hgb Conc 31.7 g/dL (32.0-36.0); Mean Corpuscular Volume 91.4 fL (80.0-100.0); Mean Platelet Volume 9.1 fL (9.4-12.4); Monocytes # (auto) 0.65 K/uL (0.11-0.59); Monocytes % (auto) 13.5 %; Neutrophils # (auto) 3.31 K/uL (1.40-6.50); Neutrophils % (auto) 68.9 %; Platelet Count 133 K/uL (130-400); RDW Coefficient of Variation 17.9 % (11.5-14.5); White Blood Count 4.81 K/ul (4.8-10.8)
[2023-03-06 09:37] LABS: Albumin Globulin Ratio 1.8 (0.9-2); Albumin Level 3.3 gm/dl (3.4-5.0); BUN Creatinine Ratio 15.4 (10-20); Bilirubin,Total 0.6 mg/dl (0.2-1.0); Calcium 8.2 mg/dl (8.6-10.3); Est GFR (African American) 37.4 ml/min; Est GFR (Non-African American) 32.3 ml/min; Globulin 1.8 gm/dl (2.5-4.0); Magnesium 1.5 mg/dl (1.7-2.4); Potassium 4.1 mmol/L (3.5-5.1); Total Protein 5.1 gm/dl (6.0-8.3)
[2023-03-06] MEDS: cefTRIAXone SODIUM 2,000 MG in DEXTROSE 5 % MINI-B 50 ML IV SCH (10:44)
--- NOTE | 2023-03-06 11:15 | Cardiology Progress Note ---
Date of Service March 06, 2023 Assessment & Plan (1) Acute systolic (congestive) heart failure: (2) Hypotension: (3) Multi-vessel coronary artery stenosis: Plan Chronic stable chest pressure, multifactorial Patient with known severe multivessel coronary artery disease status post remote CABG, AND with poor targets for PCI Acute decompensated systolic congestive heart failure, hypervolemic hyponatremia Moderately severe ischemic cardiomyopathy, EF 30 to 34% Chronic ventricular ectopy Paroxysmal atrial fibrillation Alcoholic cirrhosis of liver with ascites Recommend more aggressive IV diuresis Continue IV lasix 40mg BID s/p 5L paracentesis. Plans for repeat Tuesday. Adding back aldactone at a lower dose of 25mg qday Adding Jardiance 10mg qday Recommend Lawrence catheter placement Supplement magnesium Continue medical management for the patient's severe coronary artery disease Continue metoprolol succinate without interruption. Continue isosorbide mononitrate 60 mg/day Maintain hemoglobin of at least 8 g/dL. I provided 55 min of care to the patient in regards to acute exacerbation of HFrEF and cirrhosis. Admission and Anticipated Discharge Date Admission Date: March 01, 2023 Subjective Pt was resting comfortably. States that he feels much better now that the fluid has been removed. Notes that he has not had any further episodes of chest pain. Review of Systems Review of Systems: Complete review of systems is otherwise as stated above, negative, noncontributory Physical Exam Physical Exam: General: A&Ox3. NAD. Pale HENT: Normocephalic. Atraumatic. Eyes: PER. Conjunctiva pink, sclera clear. Neck: JVD. Heart: Irregular with occasional ectopy. Distant heart sounds. No murmur appreciated. Lungs: Decreased at the bases however clear to auscultation Abdomen: +BS. Firm. Distended. Extremities: 1+ pitting edema. Results & Data Vital Signs (Past 12 Hours) Vital Signs Temp Pulse Pulse Resp BP Pulse Ox O2 Del Method 03/06/23 09:56 73 03/06/23 07:24 36.8 C 77 17 102/53 L 95 Room Air 03/06/23 03:02 36.7 C 80 20 99/53 L 93 Room Air Results BMP Results: Sodium 131 mmol/L (136-145) L 03/06/23 Potassium 4.1 mmol/L (3.5-5.1) 03/06/23 Chloride 101 mmol/L (98-107) 03/06/23 Carbon Dioxide 24 mmol/L (21-32) 03/06/23 Anion Gap 6 (3-11) 03/06/23 BUN 29 mg/dl (6-23) H 03/06/23 Creatinine 1.88 mg/dl (0.6-1.4) H 03/06/23 Glucose 222 mg/dl (70-99(Fasting)) H 03/06/23 Results Complete Blood Count Results: RBC 2.90 M/uL (4.70-6.10) L 03/06/23 WBC 4.81 K/ul (4.8-10.8) 03/06/23 Hgb 8.4 g/dl (14.0-18.0) L 03/06/23 Hct 26.5 % (42.0-52.0) L 03/06/23 Plt Count 133 K/uL (130-400) 03/06/23
--- NOTE | 2023-03-06 11:37 | Nephrology Progress Note ---
Date of Service March 06, 2023 Assessment & Plan (1) Acute kidney injury superimposed on chronic kidney disease: Plan: stable EDMAR nonoliguric stage 1 on nonproteinuric CKD 3B w/ electrolyte issues as below. progressive ckd in 2022 > baseline in late summer mid . admission creatinine 2.3-2.4 on 03/01 and plateau'd ever since. likely ischemic ATN though HRS, glomerular process also on differential - Improving sCR - daily bmp -renal u/s w/ mild L hydronephrosis on 03/03 > f/u; not obvious on CT -Diuretic managed by Cardiology- agree with Furosemide , nancy and SGLT-2 -no fluid limit while on liquid diet -daily STANDING weight -defer to primary service if paracentesis indicated -transfuse prn (2) Chronic systolic heart failure: Plan: care w/ fluid resuscitation (3) Hyperkalemia: Plan: improved 6.4 on presentation >low K diet to continue > veltassa q 48 hr, next dose 03/06 (4) Hyponatremia: Plan: improving. a/w sNa 122> , in early 130's. clearly hypervolemic hyponatremia >no FR while on liquid diet >Diuretic as above. (5) Acute on chronic anemia: Plan: per primary service and GI transfuse prn Admission and Anticipated Discharge Date Admission Date: March 01, 2023 Subjective Pt was resting comfortably. States that he feels much better now that the fluid has been removed. . Review of Systems 2 Review of Systems: All systems reviewed & are unremarkable except as noted in HPI & below Physical Exam 2 Physical Exam: Constitutional: well developed, + thin, + frail appe aring and cooperat thien; no acute dist ress Eyes: EOM intact bilater ally ENMT: Ears: no external ear abnormality N ose: no external n ose abnormality M outh: + dry oral m ucous membranes Neck: no nuchal rigidity Respiratory: normal respiratory effort Auscultat ion: + diminished lung sounds Cardiovascular: Rate/Rhythm: regul ar rate and regula r rhythm Extremit ies: + edema (2+ b elow the knee faye a) Gastrointestinal ( Abdomen): Inspection/Auscult ation: + abdomen d istended (more juan n last exam) and n ormal bowel sounds Percussion/Palpa tion: abdomen soft , + ascites, + dul lness to percussio n and + fluid wave ; abdomen nontende r Musculoskeletal: Extremities: stren gth 5/5 throughout Skin: no rashes, warm an d dry Results & Data Vital Signs (Past 12 Hours) Vital Signs Temp Pulse Pulse Resp BP Pulse Ox O2 Del Method 03/06/23 11:18 36.8 C 75 16 109/57 L 94 Room Air 03/06/23 09:56 73 03/06/23 07:24 36.8 C 77 17 102/53 L 95 Room Air 03/06/23 03:02 36.7 C 80 20 99/53 L 93 Room Air Laboratory Results 03/06/23 08:50 03/06/23 08:50
[2023-03-06] MEDS: SPIRONOLACTONE 12.5 MG TAB PO SCH (11:45)
[2023-03-06] MEDS ORDERED: PATIROMER CALCIUM SORBITEX 8.4 GM PACK PO SCH (12:00)
[2023-03-06] MEDS: EMPAGLIFLOZIN 10 MG TAB PO SCH (15:49)
--- NOTE | 2023-03-06 16:37 | Hospitalist Progress Note ---
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 Alcoholic cirrhosis of liver with ascites s/p Diagnostic paracentesis in the ED- no SBP US liver noted cirrhosis with ascites and patent portal veins On Lasix, received albumin Holding home spironolactone GI recs on 03/04 -consider a repeat therapeutic paracentesis with albumin infusion -further discussion, GI recommending taking off 5L with albumin 25% 25g before and after -s/p diagnostic and therapeutic paracentesis on 03/04- 5L of fluids removed, pt notes marked improvement in his symptoms. Appreciate radiology assistance o korina the weekend. Nephrology recs- appreciate recs for diuretics -recommending renal US/CT abd/pelvis w/o contrast -deferring for need for paracentesis -IV Lasix diuresis Cardiology consulted for chest pain -believes related to need for paracentesis, recommending therapeutic paracentesis -recommending aggressive diuresis as well -s/p diagnostic and therapeutic paracentesis on 03/04- 5L of fluids removed, pt notes marked improvement in his symptoms. Appreciate radiology assistance over the weekend. Acute GI Bleed Anemia requiring transfusion Pt with anemia below 7 requiring transfusion of 1U pRBC on 03/02 and 03/03 Suspicious for acute GI bleed, pt with known esophageal varices EGD with GI on 03/03 -noted Grade III esophageal varices with signs of bleeding, portal hypertensive gastropathy -varices were banded -started on Octreotide -full liquid diet x 3 days -pantoprazole 40mg daily x 6 weeks -repeat EGD in 6 weeks for retreatment -prophylactic broad spectrum antibiotics until discharge Hemoccult/FOBT pending Holding home Eliquis and aspirin Continue to monitor hgb levels PAF CAD Stable Angina Pt with chest pain, last episode on 03/04 Cardiology consulted- -recommending paracentesis for symptomatic relief of pt's chest pain. (Pt s/p diagnostic and therapeutic paracentesis on 03/04- 5L of fluids removed, pt notes marked improvement in his symptoms. Appreciate radiology assistance over the weekend) -Increased IV lasix for aggressive diuresis -continue home Imdur and metoprolol Hypotension Multifactorial including cirrhosis with ascites and pt with acute GI bleed Continue midodrine- dose increased to 10mg TID Continue to monitor Appreciate cardiology and nephrology recs Acute renal failure Cr elevated above baseline Multifactorial but likely due to low effective arterial volume in setting of worsening ascites and poor PO intake. Hold home losartan and spironolactone Cr has been improving Appreciate nephrology recs Hyperkalemia Patient with K about 5 per outpatient record review. 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 While admitted, cont basal/bolus insulin. Nutrition recommending not resuming home ozempic on d/c Hypothyroidism Recent TSH on 02/22 is 14.90. Recently increased Synthroid to 225mcg by PCP. Cont current dose PCP to adjust as outpatient PAF (paroxysmal atrial fibrillation) on lifelong AC, no bleeding issues reported Holding apixaban in setting of anemia requiring transfusion noted above Malnutrition poor PO intake for 3 months. Nutrition consulted. Nutrition recommending not resuming home ozempic on d/c Diet: low sodium, low potassium, DMII, fluid restriction of 1500ml DVT prophylaxis: Holding home eliquis in setting of anemia requiring transfusion Full Code as confirmed with patient on admission. Admission and Anticipated Discharge Date Admission Date: March 01, 2023 Subjective Pt was resting comfortably. States that he feels much better now that the fluid has been removed. Denied acute concerns . Review of Systems Review of Systems: All systems reviewed & are unremarkable except as noted in Subjective Physical Exam Physical Exam: General: Alert, oriented. No acute distress Skin: No noted rashes or bruises Psych: Appropriate mood and affect Neuro: No gross deficits HEENT: NC/AT Chest: Nontender to palpation. CV: RRR Resp: Breath sounds decreased bilaterally, no increased effort of breathing. Abdomen: Distended, firm Extremities: edema in lower extremities bilaterally. Results & Data Results & Data Vital Signs (Past 12 Hours) Vital Signs Temp Pulse Pulse Resp BP Pulse Ox O2 Del Method 03/06/23 15:25 37.0 C 78 18 98/45 L 9 L Room Air 03/06/23 11:18 36.8 C 75 16 109/57 L 94 Room Air 03/06/23 09:56 73 03/06/23 07:24 36.8 C 77 17 102/53 L 95 Room Air (5) Acute renal failure Acute renal failure type: unspecified Qualified Code(s): N17.9 - Acute kidney failure, unspecified
[2023-03-06] MEDS: ATORVASTATIN 40 MG TAB PO SCH (20:00)
[2023-03-06] MEDS: TAMSULOSIN HCL 0.4 MG CAP PO SCH (20:00)
[2023-03-07] MEDS: LEVOTHYROXINE SODIUM 200 MCG TABLET PO SCH (05:33)
[2023-03-07] MEDS: LEVOTHYROXINE SODIUM 25 MCG TABLET PO SCH (05:33)
[2023-03-07] MEDS: OCTREOTIDE ACETATE 500 MCG in 0.9 % SODIUM CHLORIDE 100 ML IV SCH ×2 (05:33→15:09)
[2023-03-07 07:27] LABS: Basophils # (auto) 0.07 K/uL (0.00-0.20); Basophils % (auto) 1.6 %; Eosinophils # (auto) 0.17 K/uL (0.00-0.50); Eosinophils % (auto) 3.8 %; Hematocrit (blood only) 26.2 % (42.0-52.0); Hemoglobin 8.3 g/dl (14.0-18.0); Immature Granulocytes # (auto) 0.04 K/uL (0.01-0.20); Immature Granulocytes % (auto) 0.9 %; Lymphocytes # (auto) 0.87 K/uL (1.20-3.40); Lymphocytes % (auto) 19.4 %; Mean Corpuscular Hemoglobin 28.9 pg (25.0-34.0); Mean Corpuscular Hgb Conc 31.7 g/dL (32.0-36.0); Mean Corpuscular Volume 91.3 fL (80.0-100.0); Mean Platelet Volume 9.2 fL (9.4-12.4); Monocytes # (auto) 0.68 K/uL (0.11-0.59); Monocytes % (auto) 15.1 %; Neutrophils # (auto) 2.66 K/uL (1.40-6.50); Neutrophils % (auto) 59.2 %; Platelet Count 121 K/uL (130-400); RDW Coefficient of Variation 17.7 % (11.5-14.5); RDW Standard Deviation 58.8 fL (36.4-46.3); Red Blood Count 2.87 M/uL (4.70-6.10); White Blood Count 4.49 K/ul (4.8-10.8)
[2023-03-07] MEDS: INSULIN ASPART PER UNIT CHARGE SC SCH ×4 (07:42→20:38)
[2023-03-07] MEDS: SPIRONOLACTONE 12.5 MG TAB PO SCH (08:23)
[2023-03-07] MEDS: METOCLOPRAMIDE HCL 10 MG TABLET PO SCH (08:23)
[2023-03-07] MEDS: FAMOTIDINE 20 MG TAB PO SCH ×2 (08:23→20:39)
[2023-03-07] MEDS: METOPROLOL SUCC 50MG EXT REL TAB PO SCH (08:23)
[2023-03-07] MEDS: PANTOprazole 40 MG TAB PO SCH (08:23)
[2023-03-07] MEDS: ISOSORBIDE MONO EXTENDED REL 60 MG TABCR PO SCH (08:23)
[2023-03-07] MEDS: EMPAGLIFLOZIN 10 MG TAB PO SCH (08:23)
[2023-03-07] MEDS: MIDODRINE HCL 10 MG TAB PO SCH ×3 (08:23→17:03)
[2023-03-07] MEDS: FUROSEMIDE 40 MG/4 ML VIAL IV SCH ×2 (08:24→17:03)
[2023-03-07 09:07] LABS: Albumin Globulin Ratio 1.8 (0.9-2); Albumin Level 3.1 gm/dl (3.4-5.0); BUN Creatinine Ratio 14.4 (10-20); Bilirubin,Total 0.6 mg/dl (0.2-1.0); Calcium 8.2 mg/dl (8.6-10.3); Creatinine Clr Calc Pharmacy 29.7 ml/min; Est GFR (African American) 35.8 ml/min; Est GFR (Non-African American) 30.9 ml/min; Globulin 1.7 gm/dl (2.5-4.0); Magnesium 1.4 mg/dl (1.7-2.4); Phosphorus 3.1 mg/dl (2.5-4.9); Potassium 4.3 mmol/L (3.5-5.1); Total Protein 4.8 gm/dl (6.0-8.3)
[2023-03-07] MEDS: cefTRIAXone SODIUM 2,000 MG in DEXTROSE 5 % MINI-B 50 ML IV SCH (10:32)
[2023-03-07] MEDS: MAGNESIUM SULFATE / D5W 1 GM/100 ML BAG IV SCH ×2 (10:32→12:01)
--- NOTE | 2023-03-07 12:55 | Hospitalist Progress Note ---
Date of Service March 07, 2023 Assessment & Plan (1) Acute on chronic anemia: (2) Acute kidney injury superimposed on chronic kidney disease: (3) Acute hyperkalemia: (4) Chronic systolic heart failure: (5) Acute renal failure: (6) Malnutrition: (7) Hyponatremia: (8) PAF (paroxysmal atrial fibrillation): (9) Hypothyroidism: (10) Diabetes mellitus, type 2: (11) Marginal zone lymphoma: (12) Alcoholic cirrhosis of liver with ascites: Plan Pt is an 82yoM with PMHx significant for marginal cell lymphoma, DMII, CAD s/p stent placement, a fib, hypothyroidism, alcoholic cirrhosis admitted with electrolyte abnormalities and worsening ascites. Alcoholic cirrhosis of liver with ascites s/p Diagnostic paracentesis in the ED- no SBP US liver noted cirrhosis with ascites and patent portal veins On Lasix, received albumin Holding home spironolactone GI recs on 03/04 -consider a repeat therapeutic paracentesis with albumin infusion -further discussion, GI recommending taking off 5L with albumin 25% 25g before and after -s/p diagnostic and therapeutic paracentesis on 03/04- 5L of fluids removed, pt notes marked improvement in his symptoms. Appreciate radiology assistance o [place] the weekend. Nephrology recs- appreciate recs for diuretics -recommending renal US/CT abd/pelvis w/o contrast -deferring for need for paracentesis -IV Lasix diuresis Cardiology consulted for chest pain -believes related to need for paracentesis, recommending therapeutic paracentesis -recommending aggressive diuresis as well -s/p diagnostic and therapeutic paracentesis on 03/04- 5L of fluids removed, pt notes marked improvement in his symptoms. Appreciate radiology assistance over the weekend. Acute GI Bleed Anemia requiring transfusion Pt with anemia below 7 requiring transfusion of 1U pRBC on 03/02 and 03/03 Suspicious for acute GI bleed, pt with known esophageal varices EGD with GI on 03/03 -noted Grade III esophageal varices with signs of bleeding, portal hypertensive gastropathy -varices were banded -started on Octreotide -full liquid diet x 3 days -pantoprazole 40mg daily x 6 weeks -repeat EGD in 6 weeks for retreatment -prophylactic broad spectrum antibiotics until discharge Hemoccult/FOBT pending Holding home Eliquis and aspirin Continue to monitor hgb levels PAF CAD Stable Angina Pt with chest pain, last episode on 03/04 Cardiology consulted- -recommending paracentesis for symptomatic relief of pt's chest pain. (Pt s/p diagnostic and therapeutic paracentesis on 03/04- 5L of fluids removed, pt notes marked improvement in his symptoms. Appreciate radiology assistance over the weekend) -Increased IV lasix for aggressive diuresis -continue home Imdur and metoprolol Hypotension Multifactorial including cirrhosis with ascites and pt with acute GI bleed Continue midodrine- dose increased to 10mg TID Continue to monitor Appreciate cardiology and nephrology recs Acute renal failure Cr elevated above baseline Multifactorial but likely due to low effective arterial volume in setting of worsening ascites and poor PO intake. Hold home losartan and spironolactone Cr has been improving Appreciate nephrology recs Hyperkalemia Patient with K about 5 per outpatient record review. 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 While admitted, cont basal/bolus insulin. Nutrition recommending not resuming home ozempic on d/c Hypothyroidism Recent TSH on 02/22 is 14.90. Recently increased Synthroid to 225mcg by PCP. Cont current dose PCP to adjust as outpatient PAF (paroxysmal atrial fibrillation) on lifelong AC, no bleeding issues reported Holding apixaban in setting of anemia requiring transfusion noted above Malnutrition poor PO intake for 3 months. Nutrition consulted. Nutrition recommending not resuming home ozempic on d/c Diet: low sodium, low potassium, DMII, fluid restriction of 1500ml DVT prophylaxis: Holding home eliquis in setting of anemia requiring transfusion Full Code as confirmed with patient on admission. Admission and Anticipated Discharge Date Admission Date: March 01, 2023 Subjective Pt was resting comfortably. States that he feels much better. Denied acute concerns . Review of Systems Review of Systems: All systems reviewed & are unremarkable except as noted in Subjective Physical Exam Physical Exam: General: Alert, oriented. No acute distress Skin: No noted rashes or bruises Psych: Appropriate mood and affect Neuro: No gross deficits HEENT: NC/AT Chest: Nontender to palpation. CV: RRR Resp: Breath sounds decreased bilaterally, no increased effort of breathing. Abdomen: Distended, firm Extremities: edema in lower extremities bilaterally. Results & Data Results & Data Vital Signs (Past 12 Hours) Vital Signs Temp Pulse Pulse Resp BP Pulse Ox O2 Del Method 03/07/23 10:47 36.4 C L 63 18 94/51 L 91 Room Air 03/07/23 08:00 Room Air 03/07/23 08:00 66 03/07/23 07:00 36.7 C 76 18 99/58 L 90 Room Air 03/07/23 03:04 70 96/48 L 03/07/23 02:40 36.6 C 78 93 Room Air (5) Acute renal failure Acute renal failure type: unspecified Qualified Code(s): N17.9 - Acute kidney failure, unspecified
--- NOTE | 2023-03-07 14:26 | Cardiology Progress Note ---
Date of Service March 07, 2023 Assessment & Plan (1) Acute systolic (congestive) heart failure: (2) Hypotension: (3) Multi-vessel coronary artery stenosis: (4) Alcoholic cirrhosis of liver with ascites: Plan Chronic stable chest pressure, multifactorial Patient with known severe multivessel coronary artery disease status post remote CABG, AND with poor targets for PCI Acute decompensated systolic congestive heart failure, hypervolemic hyponatremia Moderately severe ischemic cardiomyopathy, EF 30- 34% Chronic ventricular ectopy Paroxysmal atrial fibrillation Alcoholic cirrhosis of liver with ascites Presented with severe anemia for which EGD performed 03/03/2023 revealing grade III esophageal varices with stigmata of recent bleeding in the lower third of the esophagus. Bands were successfully placed. Moderate portal hypertensive gastropathy noted in the stomach per GI report. Continue IV lasix 40mg BID s/p 5L paracentesis. Repeat paracentesis planned. Adding back aldactone at a lower dose of 25mg qday Adding Jardiance 10mg qday Continue medical management for the patient's severe coronary artery disease Continue metoprolol succinate without interruption. Continue isosorbide mononitrate 60 mg/day Maintain hemoglobin of at least 8 g/dL. Admission and Anticipated Discharge Date Admission Date: March 01, 2023 Subjective Patient seen in cardiology follow-up. He is resting supine. No acute complaint. Spouse at bedside. Telemetry reveals sinus rhythm Physical Exam Constitutional: + ill appearing (Chronically ill in appe arance); no acute distress Respiratory: Auscultation: + diminished lung sounds (Mildly decreased breath sounds the bases) Cardiovascular: Rate/Rhythm: regular rate and regular rhythm Vessels: + JVD Extremities: + edema (Trace lower extremity edema) Gastrointestinal (Abdomen): Inspection/Auscultation: + abdomen distended and + abdominal edema Percussion/Palpation: + ascites Neurologic: PERRL, EOMI, accommodation nl, no face palsy, no dysarthria Results & Data Vital Signs (Past 12 Hours) Vital Signs Temp Pulse Pulse Resp BP Pulse Ox O2 Del Method 03/07/23 10:47 36.4 C L 63 18 94/51 L 91 Room Air 03/07/23 08:00 Room Air 03/07/23 08:00 66 03/07/23 07:00 36.7 C 76 18 99/58 L 90 Room Air 03/07/23 03:04 70 96/48 L 03/07/23 02:40 36.6 C 78 93 Room Air
[2023-03-07] MEDS: ATORVASTATIN 40 MG TAB PO SCH (20:38)
[2023-03-07] MEDS: TAMSULOSIN HCL 0.4 MG CAP PO SCH (20:39)
[2023-03-08] MEDS: OCTREOTIDE ACETATE 500 MCG in 0.9 % SODIUM CHLORIDE 100 ML IV SCH ×3 (00:42→22:26)
[2023-03-08] MEDS: ACETAMINOPHEN 500 MG TAB PO PRN (04:59)
[2023-03-08] MEDS: LEVOTHYROXINE SODIUM 25 MCG TABLET PO SCH (05:47)
[2023-03-08] MEDS: LEVOTHYROXINE SODIUM 200 MCG TABLET PO SCH (05:47)
[2023-03-08 06:29] LABS: Basophils # (auto) 0.05 K/uL (0.00-0.20); Basophils % (auto) 1.1 %; Eosinophils # (auto) 0.19 K/uL (0.00-0.50); Eosinophils % (auto) 4.4 %; Hematocrit (blood only) 25.5 % (42.0-52.0); Hemoglobin 8.3 g/dl (14.0-18.0); Immature Granulocytes # (auto) 0.04 K/uL (0.01-0.20); Immature Granulocytes % (auto) 0.9 %; Lymphocytes # (auto) 0.77 K/uL (1.20-3.40); Lymphocytes % (auto) 17.7 %; Mean Corpuscular Hemoglobin 29.4 pg (25.0-34.0); Mean Corpuscular Hgb Conc 32.5 g/dL (32.0-36.0); Mean Corpuscular Volume 90.4 fL (80.0-100.0); Mean Platelet Volume 9.5 fL (9.4-12.4); Monocytes # (auto) 0.64 K/uL (0.11-0.59); Monocytes % (auto) 14.7 %; Neutrophils # (auto) 2.67 K/uL (1.40-6.50); Neutrophils % (auto) 61.2 %; Platelet Count 113 K/uL (130-400); RDW Coefficient of Variation 17.5 % (11.5-14.5); RDW Standard Deviation 58.4 fL (36.4-46.3); Red Blood Count 2.82 M/uL (4.70-6.10); White Blood Count 4.36 K/ul (4.8-10.8)
[2023-03-08 06:45] LABS: Albumin Level 3.1 gm/dl (3.4-5.0); Bilirubin,Total 0.5 mg/dl (0.2-1.0); Calcium 8.1 mg/dl (8.6-10.3); Magnesium 1.6 mg/dl (1.7-2.4); Potassium 3.8 mmol/L (3.5-5.1)
[2023-03-08 06:51] LABS: Albumin Globulin Ratio 1.7 (0.9-2); BUN Creatinine Ratio 14.9 (10-20); Creatinine Clr Calc Pharmacy 29.3 ml/min; Est GFR (Non-African American) 31.1 ml/min; Globulin 1.8 gm/dl (2.5-4.0); Phosphorus 3.2 mg/dl (2.5-4.9); Total Protein 4.9 gm/dl (6.0-8.3)
[2023-03-08] MEDS: FUROSEMIDE 40 MG/4 ML VIAL IV SCH ×2 (07:50→18:14)
[2023-03-08] MEDS: INSULIN ASPART PER UNIT CHARGE SC SCH ×4 (07:50→21:19)
[2023-03-08] MEDS: EMPAGLIFLOZIN 10 MG TAB PO SCH (07:51)
[2023-03-08] MEDS: MIDODRINE HCL 10 MG TAB PO SCH ×3 (07:51→16:58)
[2023-03-08] MEDS: SPIRONOLACTONE 25 MG TAB PO SCH (07:51)
[2023-03-08] MEDS: PANTOprazole 40 MG TAB PO SCH (07:52)
[2023-03-08] MEDS: METOCLOPRAMIDE HCL 10 MG TABLET PO SCH (07:52)
[2023-03-08] MEDS: FAMOTIDINE 20 MG TAB PO SCH ×2 (07:52→20:09)
[2023-03-08] MEDS: METOPROLOL SUCC 50MG EXT REL TAB PO SCH (07:52)
[2023-03-08] MEDS: ISOSORBIDE MONO EXTENDED REL 60 MG TABCR PO SCH (07:52)
[2023-03-08] MEDS ORDERED: ALBUMIN 25% 25 GM/100 ML VIAL IV ONE (09:00)
[2023-03-08] MEDS: cefTRIAXone SODIUM 2,000 MG in DEXTROSE 5 % MINI-B 50 ML IV SCH (09:29)
--- NOTE | 2023-03-08 10:01 | Cardiology Progress Note ---
Date of Service March 08, 2023 Assessment & Plan (1) Acute systolic (congestive) heart failure: (2) Hypotension: (3) Multi-vessel coronary artery stenosis: (4) Alcoholic cirrhosis of liver with ascites: Plan Chronic stable chest pressure, multifactorial Patient with known severe multivessel coronary artery disease status post remote CABG, AND with poor targets for PCI Acute decompensated systolic congestive heart failure, hypervolemic hyponatremia Moderately severe ischemic cardiomyopathy, EF 30- 34% Chronic ventricular ectopy Paroxysmal atrial fibrillation Alcoholic cirrhosis of liver with ascites Presented with severe anemia (Hgb 6.1 g/dl on 03/02/23) for which EGD performed 03/03/2023 revealing grade III esophageal varices with stigmata of recent bleeding in the lower third of the esophagus. Bands were successfully placed. Moderate portal hypertensive gastropathy noted in the stomach per GI report. Continue IV lasix 40mg BID today s/p 5L paracentesis. Repeat paracentesis planned for 03/08/23. Added back aldactone at a lower dose of 25mg qday Adding Jardiance 10mg qday EDMAR improved. 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 Continue medical management for the patient's severe coronary artery disease Continue metoprolol succinate without interruption. Continue isosorbide mononitrate 60 mg/day Maintain hemoglobin of at least 8 g/dL. Patient had been on Eliquis 2.5 mg BID due to h/o PAF. He is in SR , however, I anticipate a high likelihood of recurrent AF over time however given anemia issues, favor discharge on ASA 81 mg daily rather than Eliquis. Admission and Anticipated Discharge Date Admission Date: March 01, 2023 Subjective Patient seen in cardiology follow up. Denies chest pain or SOB. Telemetry reveals SR in 60s with PACs and PVCs. Physical Exam Constitutional: + ill appearing (Chronically ill in appe arance); no acute distress Respiratory: Auscultation: + diminished lung sounds (Mildly decreased breath sounds the bases) Cardiovascular: Rate/Rhythm: regular rate and regular rhythm Vessels: + JVD Extremities: + edema (Trace lower extremity edema) Gastrointestinal (Abdomen): Inspection/Auscultation: + abdomen distended and + abdominal edema Percussion/Palpation: + ascites Neurologic: PERRL, EOMI, accommodation nl, no face palsy, no dysarthria Results & Data Vital Signs (Past 12 Hours) Vital Signs Temp Pulse Pulse Resp BP Pulse Ox O2 Del Method 03/08/23 08:00 Room Air 03/08/23 08:00 68 03/08/23 07:45 36.8 C 60 18 100/65 95 Room Air 03/08/23 04:23 36.7 C 64 16 96/61 L 92 Room Air 03/08/23 00:21 101/59 L 03/07/23 23:57 36.9 C 55 L 18 87/54 L 94 Room Air 03/07/23 22:44 62 Laboratory Results Cardiac Enzymes 03/08/23 Range/Units 06:01 AST 12 L (13-39) U/L CBC 03/08/23 Range/Units 06:01 WBC 4.36 L (4.8-10.8) K/ul RBC 2.82 L (4.70-6.10) M/uL Hgb 8.3 L (14.0-18.0) g/dl Hct 25.5 L (42.0-52.0) % Plt Count 113 L (130-400) K/uL Neut # (Auto) 2.67 (1.40-6.50) K/uL Lymph # (Auto) 0.77 L (1.20-3.40) K/uL [place] # (Auto) 0.64 H (0.11-0.59) K/uL Eos # (Auto) 0.19 (0.00-0.50) K/uL Baso # (Auto) 0.05 (0.00-0.20) K/uL Comprehensive Metabolic Panel 03/08/23 Range/Units 06:01 Sodium 136 (136-145) mmol/L Potassium 3.8 (3.5-5.1) mmol/L Chloride 103 (98-107) mmol/L Carbon Dioxide 26 (21-32) mmol/L BUN 29 H (6-23) mg/dl Creatinine 1.94 H (0.6-1.4) mg/dl Glucose 152 H (70-99(Fasting)) mg/dl Calcium 8.1 L (8.6-10.3) mg/dl AST 12 L (13-39) U/L ALT 8 (7-52) U/L Alkaline Phosphatase 61 (34-104) U/L Total Protein 4.9 L (6.0-8.3) gm/dl Albumin 3.1 L (3.4-5.0) gm/dl Intake and Output 03/07/23 03/08/23 03/08/23 22:59 06:59 14:59 Intake Total 446.96 / 1117.582 446.455 / 1117.582 Output Total 1000 / 1800 800 / 1800 Balance -553.04 / -682.418 -353.545 / -682.418 Intake: IV 96.96 / 417.582 96.455 / 417.582 Octreotide Acetate 500 mcg In 0 96.96 / 193.415 96.455 / 193.415 .9 % Sodium Chloride 100 ml @ 50 MCG/HR 10.05 mls/hr IV .Q10H [facility] Rx#:[id number] Oral 350 / 700 350 / 700 Output: Urine Amount (Catheter) 1000 / 1800 800 / 1800 [place]/Indwelling 1000 / 1800 800 / 1800 Other: Weight 84 kg Weight Measurement Method Built in [facility]
[2023-03-08] MEDS ORDERED: MAGNESIUM SULFATE / D5W 1 GM/100 ML BAG IV ONE (13:00)
--- NOTE | 2023-03-08 13:04 | Hospitalist Progress Note ---
Date of Service March 08, 2023 Assessment & Plan (1) Acute on chronic anemia: (2) Acute kidney injury superimposed on chronic kidney disease: (3) Acute hyperkalemia: (4) Chronic systolic heart failure: (5) Acute renal failure: (6) Malnutrition: (7) Hyponatremia: (8) PAF (paroxysmal atrial fibrillation): (9) Hypothyroidism: (10) Diabetes mellitus, type 2: (11) Marginal zone lymphoma: (12) Alcoholic cirrhosis of liver with ascites: Plan Pt is an 82yoM with PMHx significant for marginal cell lymphoma, DMII, CAD s/p stent placement, a fib, hypothyroidism, alcoholic cirrhosis admitted with electrolyte abnormalities and worsening ascites. Alcoholic cirrhosis of liver with ascites s/p Diagnostic paracentesis in the ED on day of admission- no SBP US liver noted cirrhosis with ascites and patent portal veins On Lasix, received albumin GI recs on 03/04 -consider a repeat therapeutic paracentesis with albumin infusion -further discussion, GI recommending taking off 5L with albumin 25% 25g before and after -s/p diagnostic and therapeutic paracentesis on 03/04- 5L of fluids removed, pt noted marked improvement in his symptoms. Nephrology recs- appreciate recs for diuretics -recommending renal US/CT abd/pelvis w/o contrast -deferring for need for paracentesis -IV Lasix diuresis, spironolactone resumed Cardiology consulted for chest pain -believes related to need for paracentesis, recommending therapeutic paracentesis -recommending aggressive diuresis as well (IV lasix 40mg BID with spironolactone 25mg) -started on Jardiance -recommending resuming home torsemide 40mg at discharge -s/p diagnostic and therapeutic paracentesis on 03/04- 5L of fluids removed, pt noted marked improvement in his symptoms. Pt to have repeat paracentesis today 03/08/23- albumin given before, to be ordered for after paracentesis as well Acute GI Bleed Anemia requiring transfusion Pt with anemia below 7 requiring transfusion of 1U pRBC on 03/02 and 03/03 Suspicious for acute GI bleed, pt with known esophageal varices EGD with GI on 03/03 -noted Grade III esophageal varices with signs of bleeding, portal hypertensive gastropathy -varices were banded -started on Octreotide -full liquid diet x 3 days -pantoprazole 40mg daily x 6 weeks -repeat EGD in 6 weeks for retreatment -prophylactic broad spectrum antibiotics until discharge Hemoccult/FOBT pending Holding home Eliquis and aspirin- per cardiology, can resume only aspirin after discharge Continue to monitor hgb levels PAF CAD Stable Angina Pt with chest pain, last episode on 03/04 Cardiology consulted- -recommending paracentesis for symptomatic relief of pt's chest pain. (Pt s/p diagnostic and therapeutic paracentesis on 03/04- 5L of fluids removed, pt notes marked improvement in his symptoms. Appreciate radiology assistance over the weekend) -Increased IV lasix for aggressive diuresis, added spironolactone, Jardiance -continue home Imdur and metoprolol Hypotension Multifactorial including cirrhosis with ascites and pt with acute GI bleed Continue midodrine- dose increased to 10mg TID Continue to monitor Appreciate cardiology and nephrology recs Acute renal failure Cr elevated above baseline Multifactorial but likely due to low effective arterial volume in setting of worsening ascites and poor PO intake. Hold home losartan and spironolactone Cr has been improving Appreciate nephrology recs Hyperkalemia Patient with K about 5 per outpatient record review. 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 While admitted, cont basal/bolus insulin. Nutrition recommending not resuming home ozempic on d/c Hypothyroidism Recent TSH on 02/22 is 14.90. Recently increased Synthroid to 225mcg by PCP. Cont current dose PCP to adjust as outpatient PAF (paroxysmal atrial fibrillation) on lifelong AC, no bleeding issues reported Holding apixaban in setting of anemia requiring transfusion noted above Malnutrition poor PO intake for 3 months. Nutrition consulted. Nutrition recommending not resuming home ozempic on d/c Diet: low sodium, low potassium, DMII, fluid restriction of 1500ml DVT prophylaxis: Holding home eliquis in setting of anemia requiring transfusion Full Code as confirmed with patient on admission. Admission and Anticipated Discharge Date Admission Date: March 01, 2023 Subjective Pt seen in the AM. States that he was starting to have that chest tightness feeling once more. Otherwise denied acute concerns. Review of Systems Review of Systems: All systems reviewed & are unremarkable except as noted in Subjective Physical Exam Physical Exam: General: Alert, oriented. No acute distress Skin: No noted rashes or bruises Psych: Appropriate mood and affect Neuro: No gross deficits HEENT: NC/AT Chest: Nontender to palpation. CV: RRR Resp: Breath sounds decreased bilaterally, no increased effort of breathing. Abdomen: Distended, firm Extremities: edema in lower extremities bilaterally. Results & Data Results & Data Vital Signs (Past 12 Hours) Vital Signs Temp Pulse Pulse Resp BP Pulse Ox O2 Del Method 03/08/23 11:03 64 18 93/61 L 97 Room Air 03/08/23 08:00 Room Air 03/08/23 08:00 68 03/08/23 07:45 36.8 C 60 18 100/65 95 Room Air 03/08/23 04:23 36.7 C 64 16 96/61 L 92 Room Air (5) Acute renal failure Acute renal failure type: unspecified Qualified Code(s): N17.9 - Acute kidney failure, unspecified
[2023-03-08] MEDS ORDERED: ALBUMIN 25% 25 GM/100 ML VIAL IV SCH (15:00)
--- NOTE | 2023-03-08 15:15 | Ultrasound Report ---
Ultrasound-guided paracentesis INDICATION: Ascites PROCEDURE: Procedure and risks explained. Informed consent was obtained. A final timeout was complete d. The abdomen was prepped and draped in sterile fashion. 1% buffered lidocaine was utilized for skin anesthesia. Utilizing ultrasound guidance, a 5 [place] safety centesis catheter was advanced into the left lower q uadrant pocket of ascites. Ultrasound images were obtained. 3 L of ascites fluid was removed and disc arded. The catheter was removed and Band-Aid applied. The patient tolerated the procedure well. Vital signs will be monitored postprocedure. IMPRESSION: Ultrasound-guided paracentesis as above. Performed, dictated, and signed by Thomas Mann PA-C; to be co-signed by Dr. Angel Morales. Electronically signed by: Angel Morales M.D. 03/08/2023 6:44 PM
[2023-03-08] MEDS: TAMSULOSIN HCL 0.4 MG CAP PO SCH (20:08)
[2023-03-08] MEDS: MAGNESIUM OXIDE 400 MG TAB PO SCH (20:09)
[2023-03-08] MEDS: ATORVASTATIN 40 MG TAB PO SCH (20:09)
[2023-03-09] MEDS: ACETAMINOPHEN 500 MG TAB PO PRN ×2 (02:02→08:23)
[2023-03-09] MEDS: LEVOTHYROXINE SODIUM 200 MCG TABLET PO SCH (06:18)
[2023-03-09] MEDS: LEVOTHYROXINE SODIUM 25 MCG TABLET PO SCH (06:18)
[2023-03-09 07:29] LABS: Basophils # (auto) 0.05 K/uL (0.00-0.20); Basophils % (auto) 1.4 %; Eosinophils % (auto) 5.5 %; Hematocrit (blood only) 26.9 % (42.0-52.0); Hemoglobin 8.6 g/dl (14.0-18.0); Immature Granulocytes # (auto) 0.02 K/uL (0.01-0.20); Immature Granulocytes % (auto) 0.6 %; Lymphocytes # (auto) 0.67 K/uL (1.20-3.40); Lymphocytes % (auto) 18.6 %; Mean Corpuscular Hemoglobin 29.2 pg (25.0-34.0); Mean Corpuscular Volume 91.2 fL (80.0-100.0); Mean Platelet Volume 9.2 fL (9.4-12.4); Monocytes % (auto) 13.9 %; Neutrophils # (auto) 2.17 K/uL (1.40-6.50); Platelet Count 116 K/uL (130-400); RDW Coefficient of Variation 17.3 % (11.5-14.5); RDW Standard Deviation 57.9 fL (36.4-46.3); Red Blood Count 2.95 M/uL (4.70-6.10); White Blood Count 3.61 K/ul (4.8-10.8)
[2023-03-09 07:39] LABS: Albumin Globulin Ratio 1.8 (0.9-2); Albumin Level 3.5 gm/dl (3.4-5.0); BUN Creatinine Ratio 16.7 (10-20); Bilirubin,Total 0.5 mg/dl (0.2-1.0); Calcium 8.3 mg/dl (8.6-10.3); Creatinine Clr Calc Pharmacy 31.9 ml/min; Est GFR (African American) 41.1 ml/min; Est GFR (Non-African American) 35.5 ml/min; Globulin 1.9 gm/dl (2.5-4.0); Magnesium 1.7 mg/dl (1.7-2.4); Phosphorus 3.2 mg/dl (2.5-4.9); Potassium 3.5 mmol/L (3.5-5.1); Total Protein 5.4 gm/dl (6.0-8.3)
[2023-03-09] MEDS: METOCLOPRAMIDE HCL 10 MG TABLET PO SCH (08:23)
[2023-03-09] MEDS: FAMOTIDINE 20 MG TAB PO SCH (08:24)
[2023-03-09] MEDS: PANTOprazole 40 MG TAB PO SCH (08:25)
[2023-03-09] MEDS: EMPAGLIFLOZIN 10 MG TAB PO SCH (08:25)
[2023-03-09] MEDS: ISOSORBIDE MONO EXTENDED REL 60 MG TABCR PO SCH (08:25)
[2023-03-09] MEDS: METOPROLOL SUCC 50MG EXT REL TAB PO SCH (08:25)
[2023-03-09] MEDS: MIDODRINE HCL 10 MG TAB PO SCH ×2 (08:26→12:23)
[2023-03-09] MEDS: FUROSEMIDE 40 MG/4 ML VIAL IV SCH ×2 (08:26→16:00)
[2023-03-09] MEDS: MAGNESIUM OXIDE 400 MG TAB PO SCH (08:27)
[2023-03-09] MEDS: SPIRONOLACTONE 25 MG TAB PO SCH (08:27)
[2023-03-09] MEDS: OCTREOTIDE ACETATE 500 MCG in 0.9 % SODIUM CHLORIDE 100 ML IV SCH (08:31)
[2023-03-09] MEDS: INSULIN ASPART PER UNIT CHARGE SC SCH ×2 (08:38→12:23)
[2023-03-09] MEDS: cefTRIAXone SODIUM 2,000 MG in DEXTROSE 5 % MINI-B 50 ML IV SCH (09:12)
--- NOTE | 2023-03-09 11:29 | Hospitalist Progress Note ---
Date of Service March 09, 2023 Assessment & Plan (1) Acute on chronic anemia: (2) Acute kidney injury superimposed on chronic kidney disease: (3) Acute hyperkalemia: (4) Chronic systolic heart failure: (5) Acute renal failure: (6) Malnutrition: (7) Hyponatremia: (8) PAF (paroxysmal atrial fibrillation): (9) Hypothyroidism: (10) Diabetes mellitus, type 2: (11) Marginal zone lymphoma: (12) Alcoholic cirrhosis of liver with ascites: Plan Pt is an 82yoM with PMHx significant for marginal cell lymphoma, DMII, CAD s/p stent placement, a fib, hypothyroidism, alcoholic cirrhosis admitted with electrolyte abnormalities and worsening ascites. Alcoholic cirrhosis of liver with ascites s/p Diagnostic paracentesis in the ED on day of admission- no SBP US liver noted cirrhosis with ascites and patent portal veins On Lasix, received albumin GI recs on 03/04-appreciate input and recommendation -consider a repeat therapeutic paracentesis with albumin infusion -further discussion, GI recommending taking off 5L with albumin 25% 25g before and after -s/p diagnostic and therapeutic paracentesis on 03/04- 5L of fluids removed, pt noted marked improvement in his symptoms. -Underwent repeat paracentesis 2122 with albumin given prior to the paracentesis Nephrology recs- appreciate recs for diuretics -recommending renal US/CT abd/pelvis w/o contrast -deferring for need for paracentesis -IV Lasix diuresis, spironolactone resumed -Will have oral diuretics as recommended by the home organizer on discharge on 03/09/2023 Cardiology consulted for chest pain -believes related to need for paracentesis, recommending therapeutic paracentesis -recommending aggressive diuresis as well (IV lasix 40mg BID with spironolactone 25mg) -started on Jardiance and can resume aspirin after discharge and do not give any more Eliquis 03/09/2023 He has been feeling much better without any acute distress and/or symptoms Has been ambulating in the room without any difficulties and he wants to go home Denies any significant symptoms He will be discharged home this afternoon Acute GI Bleed Anemia requiring transfusion Pt with anemia below 7 requiring transfusion of 1U pRBC on 03/02 and 03/03 Suspicious for acute GI bleed, pt with known esophageal varices EGD with GI on 03/03 -noted Grade III esophageal varices with signs of bleeding, portal hypertensive gastropathy -varices were banded -started on Octreotide -full liquid diet x 3 days -pantoprazole 40mg daily x 6 weeks -repeat EGD in 6 weeks for retreatment -prophylactic broad spectrum antibiotics until discharge 03/09/2023 Remains medically stable without any acute distress Globin is 8.6 as of 03/09/2023 BUN and creatinine are 29/1.74 with some improvement Will be discharged home on oral torsemide as recommended PAF CAD Stable Angina Pt with chest pain, last episode on 03/04 Cardiology consulted- -recommending paracentesis for symptomatic relief of pt's chest pain. (Pt s/p diagnostic and therapeutic paracentesis on 03/04- 5L of fluids removed, pt notes marked improvement in his symptoms. Appreciate radiology assistance over the weekend) -Increased IV lasix for aggressive diuresis, added spironolactone, Jardiance -continue home Imdur and metoprolol Denies any more chest pain Hypotension Multifactorial including cirrhosis with ascites and pt with acute GI bleed Continue midodrine- dose increased to 10mg TID Continue to monitor Appreciate cardiology and nephrology recs Blood pressure has been more than 90 systolic Acute renal failure Cr elevated above baseline Multifactorial but likely due to low effective arterial volume in setting of worsening ascites and poor PO intake. Hold home losartan and spironolactone Cr has been improving Appreciate nephrology recs-creatinine is 1.74 and that is stable Hyperkalemia Patient with K about 5 per outpatient record review. 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 While admitted, cont basal/bolus insulin. Nutrition recommending not resuming home ozempic on d/c Hypothyroidism Recent TSH on 02/22 is 14.90. Recently increased Synthroid to 225mcg by PCP. Cont current dose PCP to adjust as outpatient PAF (paroxysmal atrial fibrillation) on lifelong AC, no bleeding issues reported Holding apixaban in setting of anemia requiring transfusion noted above Malnutrition poor PO intake for 3 months. Nutrition consulted. Nutrition recommending not resuming home ozempic on d/c Diet: low sodium, low potassium, DMII, fluid restriction of 1500ml DVT prophylaxis: Holding home eliquis in setting of anemia requiring transfusion Full Code as confirmed with patient on admission. Will be discharged home this afternoon Admission and Anticipated Discharge Date Admission Date: March 01, 2023 Subjective 03/09/2023 The patient was seen and examined in telemetry unit He was noted to have very low blood pressure this morning and Lasix was not administered He has been feeling much better and wants to go home today No abdominal distention, nausea or vomiting and no swelling of the legs He has been ambulating in the room without any difficulties Review of Systems Review of Systems: All systems reviewed and are unremarkable except as noted below Physical Exam Physical Exam: Sitting on a chair without any acute distress Constitutional: well developed, well nourished, + ill appearing and average body habitus Eyes: PERRL, conjunctivae normal, anicteric sclerae ENMT: external ear and nose normal, oropharynx normal Neck: trachea midline, no thyromegaly Respiratory: no respiratory distress Auscultation: + diminished lung sounds and + crackles (Minimal crackles at the bases) Cardiovascular: Rate/Rhythm: regular rate and regular rhythm; not tachycardic Heart Sounds: normal S1 and normal S2; no murmur Extremities: + edema (Trace edema bilaterally) Gastrointestinal (Abdomen): Inspection/Auscultation: + abdomen distended and normal bowel sounds Percussion/Palpation: abdomen soft; abdomen nontender Musculoskeletal: No acute arthritis involving any joint Neurologic: normal touch/pain/proprioception and moves all extremities; no focal motor deficits Psychiatric: A+Ox3, euthymic affect Lymphatic: no cervical or axillary lymphadenopathy Results & Data Results & Data Vital Signs (Past 12 Hours) Vital Signs Temp Pulse Pulse Resp BP BP Pulse Ox 03/09/23 10:11 03/09/23 08:31 87 94/55 L 03/09/23 07:39 36.4 C L 59 L 18 87/52 L 97 03/09/23 07:15 61 03/09/23 03:30 37.0 C 64 20 109/54 L 95 03/08/23 23:42 58 L O2 Del Method 03/09/23 10:11 Room Air 03/09/23 08:31 03/09/23 07:39 Room Air 03/09/23 07:15 03/09/23 03:30 Room Air 03/08/23 23:42 Laboratory Results Short CBC 03/09/23 Range/Units 06:18 WBC 3.61 L (4.8-10.8) K/ul Hgb 8.6 L (14.0-18.0) g/dl Hct 26.9 L (42.0-52.0) % Plt Count 116 L (130-400) K/uL BMP 03/09/23 06:18 Sodium 136 Potassium 3.5 Chloride 102 Carbon Dioxide 27 BUN 29 H Creatinine 1.74 H Glucose 154 H Calcium 8.3 L Liver Function 03/09/23 Range/Units 06:18 Total Bilirubin 0.5 (0.2-1.0) mg/dl AST 14 (13-39) U/L ALT 7 (7-52) U/L Alkaline Phosphatase 62 (34-104) U/L Albumin 3.5 (3.4-5.0) gm/dl Medications Administered Current Inpatient Medications Acetaminophen (Acetaminophen 500 Mg Tab) 500 mg PO Q4H PRN PRN Reason: Pain or Fever Stop: 03/31/23 18:24 Last Admin: 03/09/23 08:23 Dose: 500 mg Hydrocodone Bitart/Acetaminophen (Hydrocodone/Acetaminophen 7.5/325mg Tab) 1 tab PO Q8H PRN PRN Reason: Pain Stop: 03/15/23 16:45 Last Admin: 03/03/23 08:18 Dose: 1 tab Apixaban (Apixaban 2.5 Mg Tab) 2.5 mg PO BID ANGIE Stop: 03/31/23 20:59 Last Admin: 03/01/23 20:43 Dose: 2.5 mg Aspirin (Aspirin 81 Mg Ectab) 81 mg PO QAM ANGIE Stop: 04/01/23 08:59 Atorvastatin Calcium (Atorvastatin 40 Mg Tab) 80 mg PO QPM ANGIE Stop: 03/31/23 20:59 Last Admin: 03/08/23 20:09 Dose: 80 mg Dextrose (Dextrose 50% 50 Ml Syringe) 25 - 50 ml IV UD PRN; Protocol PRN Reason: Hypoglycemia Protocol Stop: 03/31/23 18:24 Empagliflozin (Empagliflozin 10 Mg Tab) 10 mg PO DAILY ANGIE Stop: 04/05/23 11:14 Last Admin: 03/09/23 08:25 Dose: 10 mg Famotidine (Famotidine 20 Mg Tab) 20 mg PO BID ANGIE Stop: 03/31/23 20:59 Last Admin: 03/09/23 08:24 Dose: 20 mg Furosemide (Furosemide 40 Mg/4 Ml Vial) 40 mg IV BIDM ANGIE Stop: 04/04/23 16:59 Last Admin: 03/09/23 08:26 Dose: Not Given Glucagon (Glucagon For Inj 1 Mg Vial) 1 mg SQ UD PRN; Protocol PRN Reason: Hypoglycemia Protocol Stop: 03/31/23 18:24 Glucose (Glucose 10 Tab/Tube) 4 - 8 tab PO UD PRN; Protocol PRN Reason: Hypoglycemia Treatment Stop: 03/31/23 18:24 Glucose (Glucose 40% Gel 15 Gm Tube) 15 - 30 gm PO UD PRN; Protocol PRN Reason: Hypoglycemia Protocol Stop: 03/31/23 18:24 Ceftriaxone Sodium 2,000 mg/ (Dextrose) 50 mls @ 100 mls/hr IV Q24H ANGIE; Protocol Stop: 03/12/23 09:59 Last Infusion: 03/09/23 09:42 Dose: Infused Octreotide Acetate 500 mcg/ (Sodium Chloride) 100.5 mls @ 10.05 mls/hr IV .Q10H [facility] Stop: 04/02/23 12:29 Last Admin: 03/09/23 08:31 Dose: 50 mcg/hr, 10.1 mls/hr Insulin Aspart (Insulin Aspart Per Unit Charge) 0 units SC ACHS ANGIE Stop: 03/31/23 20:59 Last Admin: 03/09/23 08:38 Dose: 2 units Isosorbide Mononitrate (Isosorbide Meigs Extended Rel 60 Mg Tabcr) 60 mg PO QAM [facility] Stop: 04/01/23 08:59 Last Admin: 03/09/23 08:25 Dose: 60 mg Levothyroxine Sodium (Levothyroxine Sodium 200 Mcg Tablet) 200 mcg PO DAILYBB [facility] Stop: 04/01/23 06:29 Last Admin: 03/09/23 06:18 Dose: 200 mcg Levothyroxine Sodium (Levothyroxine Sodium 25 Mcg Tablet) 25 mcg PO DAILYBB ANGIE Stop: 04/01/23 06:29 Last Admin: 03/09/23 06:18 Dose: 25 mcg Magnesium Oxide (Magnesium Oxide 400 Mg Tab) 400 mg PO BID ANGIE Stop: 04/07/23 20:59 Last Admin: 03/09/23 08:27 Dose: 400 mg Metoclopramide HCl (Metoclopramide Hcl 10 Mg Tablet) 10 mg PO DAILY ANGIE Stop: 04/01/23 08:59 Last Admin: 03/09/23 08:23 Dose: 10 mg Metoprolol Succinate (Metoprolol Succ 50mg Ext Rel Tab) 100 mg PO QAM ANGIE Stop: 04/01/23 08:59 Last Admin: 03/09/23 08:25 Dose: 100 mg Midodrine (Midodrine Hcl 10 Mg Tab) 10 mg PO TID@0800,1200,1700 ANGIE Stop: 04/02/23 16:59 Last Admin: 03/09/23 08:26 Dose: 10 mg Miscellaneous (Carbohydrates For Hypoglycemia ) 15 - 30 gm PO UD PRN PRN Reason: Hypoglycemia Protocol Stop: 03/31/23 18:24 Last Admin: 03/02/23 04:54 Dose: 30 gm Pantoprazole Sodium (Pantoprazole 40 Mg Tab) 40 mg PO DAILY ANGIE Stop: 04/03/23 08:59 Last Admin: 03/09/23 08:25 Dose: 40 mg Polyethylene Glycol (Polyethylene (Miralax) 17 Gm Pack) 17 gm PO DAILY PRN PRN Reason: Constipation Stop: 03/31/23 18:24 Spironolactone (Spironolactone 25 Mg Tab) 25 mg PO QAM ANGIE Stop: 04/07/23 08:59 Last Admin: 03/09/23 08:27 Dose: 25 mg Tamsulosin HCl (Tamsulosin Hcl 0.4 Mg Cap) 0.4 mg PO HS ANGIE Stop: 03/31/23 20:59 Last Admin: 03/08/23 20:08 Dose: 0.4 mg (5) Acute renal failure Acute renal failure type: unspecified Qualified Code(s): N17.9 - Acute kidney failure, unspecified
--- NOTE | 2023-03-09 12:38 | Cardiology Progress Note ---
Date of Service March 09, 2023 Assessment & Plan (1) Acute systolic (congestive) heart failure: (2) Hypotension: (3) Multi-vessel coronary artery stenosis: (4) Cirrhosis of liver: Plan Chronic stable chest pressure, multifactorial Patient with known severe multivessel coronary artery disease status post remote CABG, AND with poor targets for PCI Acute decompensated systolic congestive heart failure, hypervolemic hyponatremia Moderately severe ischemic cardiomyopathy, EF 30- 34% Chronic ventricular ectopy Paroxysmal atrial fibrillation -Patient tells me that his diagnosis of liver disease is felt to have been related to a blood transfusion. He has not been an alcohol user in the past. Presented with severe anemia (Hgb 6.1 g/dl on 03/02/23) for which EGD performed 03/03/2023 revealing grade III esophageal varices with stigmata of recent bleeding in the lower third of the esophagus. Bands were successfully placed. Moderate portal hypertensive gastropathy noted in the stomach per GI report. s/p 5L paracentesis. Repeat paracentesis performed 03/08/2023 yielding 3 L of fluid. Stable for discharge on lower dose of Aldactone, 25 mg daily, Jardiance 10 mg daily, torsemide 40 mg daily. Patient had been on Eliquis 2.5 mg BID due to h/o PAF. He is in SR , however, I anticipate a high likelihood of recurrent AF over time however given anemia issues, favor discharge on ASA 81 mg daily rather than Eliquis. Case discussed with Dr. Silva for the purpose of coordination of care. Admission and Anticipated Discharge Date Admission Date: March 01, 2023 Subjective Patient feels subjectively improved. Lawrence catheter remains in place. Telemetry reveals sinus rhythm in the 70s with occasional PVCs. Physical Exam Constitutional: + ill appearing (Chronically ill in appe arance); no acute distress Respiratory: Auscultation: + diminished lung sounds (Mildly decreased breath sounds the bases) Cardiovascular: Rate/Rhythm: regular rate and regular rhythm Vessels: + JVD Extremities: + edema (Trace lower extremity edema) Gastrointestinal (Abdomen): Inspection/Auscultation: + abdomen distended and + abdominal edema Percussion/Palpation: + ascites Neurologic: PERRL, EOMI, accommodation nl, no face palsy, no dysarthria Results & Data Vital Signs (Past 12 Hours) Vital Signs Temp Pulse Pulse Resp BP BP Pulse Ox 03/09/23 11:43 36.5 C 61 18 82/44 L 98 03/09/23 10:11 03/09/23 08:31 87 94/55 L 03/09/23 07:39 36.4 C L 59 L 18 87/52 L 97 03/09/23 07:15 61 03/09/23 03:30 37.0 C 64 20 109/54 L 95 O2 Del Method 03/09/23 11:43 Room Air 03/09/23 10:11 Room Air 03/09/23 08:31 03/09/23 07:39 Room Air 03/09/23 07:15 03/09/23 03:30 Room Air
--- NOTE | 2023-03-10 07:36 | Discharge Summary ---
Date of Service March 09, 2023 Admission HPI Per Admitting Provider 82 yo M presents with elevated K 6.4, acute renal failure with a creatinine of 2.6 and a low sodium of 122. These abnormal labs were found from screening bloodwork ordered by his charge preparation technician who he sees for ongoing iron deficiency and marginal zone lymphoma. He has a history of liver cirrhosis with recent outpatient notes reporting increased abdominal fullness and bloating. He has poor PO intake per his , worsening over the last 2-3 months. He also has a history of severe multivessel CAD s/p CABG in 2013, DEVIN placed in 2015, repeat chest pain with repeat cath in 2017 and no intervention based on poor targets for PCI. Echo in 2020 revealed EF 20-30% with severe global HK of the left ventricle. Repeat echo in October 2022 revealed EF 30-34% with no changes from prior other than a new trivial pericardial effusion. Frequently vomiting and diarrhea. He is triggered to vomit after two bites of food. Frequently pills will come up with this. Keeping down Glucerna and boost, V8 juice and orange juice. Notes that he uses V8 and OJ, both high in potassium, to treat himself when glucometer goes off four times per night alerting him to low blood sugar. Weakness causing difficulty ambulating. No SOB, denies dynspnea with exertion, reports having no energy, no orthopnea, unable to sleep well. Takes naps during the day. Watches TV a lot during the day, very sedentary behavior described. Abdominal pain present in lower abdomen- stabbing pain reported. significant cold intolerance noted, but no fever. Thyroid medication has been increased over the past few months and TSH still 14. Per , new dose was recently started. RE: MZL, cannot give chemo or XRT at this point secondary to his comorbidities. Not current on treatment and patient/ are unsure of his prognosis or remiss ion status. Saw Dr. Cunningham from for his liver last May, he had no ascites at that time, progression has just been in the past two months. Lower extremity swelling also reported x two months. Admission Exam Per Admitting Provider Physical Exam: CONSTITUTIONAL: WNWD, vitals as above, NAD EYES: PERRL, normal conjunctivae, no scleral icterus ENT: external ear and nose normal, MMM NECK: trachea midline RESPIRATORY: clear to auscultation bilaterally, no crackles, rales or wheezes, normal respiratory effort CARDIOVASCULAR: regular rate and rhythm, S1 and 2 heard without murmurs, gallops or rubs, no JVD, no peripheral edema CHEST: inspection of chest was normal GASTROINTESTINAL: soft, distended and protuberant abdomen with positive fluid wave, no guarding MUSCULOSKELETAL: strength 5/5 throughout, head is normocephalic and atraumatic SKIN: warm and dry NEUROLOGIC: CN 2-12 grossly intact, no sensory deficit, normal cognition, normal speech, no tremor PSYCHIATRIC: alert cooperative and oriented to person, place and time. Principal Diagnosis Alcoholic cirrhosis of liver with ascites, status post paracentesis, acute blood loss anemia, PAF Discharge Exam Sitting on a chair without any acute distress Constitutional well developed, well nourished, + ill appearing and average body habitus Eyes PERRL, conjunctivae normal, anicteric sclerae ENMT external ear and nose normal, oropharynx normal Neck trachea midline, no thyromegaly Respiratory no respiratory distress Auscultation: + diminished lung sounds and + crackles (Minimal crackles at the bases) Cardiovascular Rate/Rhythm: regular rate and regular rhythm; not tachycardic Heart Sounds: normal S1 and normal S2; no murmur Extremities: + edema (Trace edema bilaterally) Gastrointestinal (Abdomen) Inspection/Auscultation: + abdomen distended and normal bowel sounds Percussion/Palpation: abdomen soft; abdomen nontender Neurologic normal touch/pain/proprioception and moves all extremities; no focal motor deficits Psychiatric A+Ox3, euthymic affect Lymphatic no cervical or axillary lymphadenopathy Discharge Data Allergies Allergy/AdvReac Type Severity Reaction Status Date / Time Iodinated Contrast Media Allergy Severe IVP DYE = Verified 03/01/23 15:34 ANAPHYLAXIS lisinopril AdvReac Cough Verified 03/01/23 15:34 Consultations 03/01/23 14:47 ED Decision to Admit Stat 03/01/23 16:54 Consult Gastroenterology Routine 03/01/23 18:25 Consult Nephrology Routine 03/04/23 15:23 Consult Cardiology Routine 03/08/23 08:54 Consult Radiology Routine Procedures Performed Operation Date: 03/03/23 16:30 Actual Procedures p EGD Banding of Varices - Lizbeth Martinez, Ordered Studies 03/01/23 19:52 US duplex portal hepatic veins Routine 03/03/23 15:44 CT Abd and Pelvis [CT abd pelvis wo con] Urgent US Renal Bladder [US renal/blad retro comp] Urgent 03/04/23 14:54 IR paracentesis abd w/img US Urgent 03/08/23 07:53 IR paracentesis abd w/img US Urgent Hospital Course (1) Acute on chronic anemia: (2) Acute kidney injury superimposed on chronic kidney disease: (3) Acute hyperkalemia: (4) Chronic systolic heart failure: (5) Acute renal failure: (6) Malnutrition: (7) Hyponatremia: (8) PAF (paroxysmal atrial fibrillation): (9) Hypothyroidism: (10) Diabetes mellitus, type 2: (11) Marginal zone lymphoma: (12) Alcoholic cirrhosis of liver with ascites: Plan Pt is an 82yoM with PMHx significant for marginal cell lymphoma, DMII, CAD s/p stent placement, a fib, hypothyroidism, alcoholic cirrhosis admitted with electrolyte abnormalities and worsening ascites. Alcoholic cirrhosis of liver with ascites s/p Diagnostic paracentesis in the ED on day of admission- no SBP US liver noted cirrhosis with ascites and patent portal veins On Lasix, received albumin GI recs on 03/04-appreciate input and recommendation -consider a repeat therapeutic paracentesis with albumin infusion -further discussion, GI recommending taking off 5L with albumin 25% 25g before and after -s/p diagnostic and therapeutic paracentesis on 03/04- 5L of fluids removed, pt noted marked improvement in his symptoms. -Underwent repeat paracentesis 111 2122 with albumin given prior to the paracentesis Nephrology recs- appreciate recs for diuretics -recommending renal US/CT abd/pelvis w/o contrast -deferring for need for paracentesis -IV Lasix diuresis, spironolactone resumed -Will have oral diuretics as recommended by the geospatial technician on discharge on 03/09/2023 Cardiology consulted for chest pain -believes related to need for paracentesis, recommending therapeutic paracentesis -recommending aggressive diuresis as well (IV lasix 40mg BID with spironolactone 25mg) -started on Jardiance and can resume aspirin after discharge and do not give any more Eliquis 03/09/2023 He has been feeling much better without any acute distress and/or symptoms Has been ambulating in the room without any difficulties and he wants to go home Denies any significant symptoms He will be discharged home this afternoon Acute GI Bleed Anemia requiring transfusion Pt with anemia below 7 requiring transfusion of 1U pRBC on 03/02 and 03/03 Suspicious for acute GI bleed, pt with known esophageal varices EGD with GI on 03/03 -noted Grade III esophageal varices with signs of bleeding, portal hypertensive gastropathy -varices were banded -started on Octreotide -full liquid diet x 3 days -pantoprazole 40mg daily x 6 weeks -repeat EGD in 6 weeks for retreatment -prophylactic broad spectrum antibiotics until discharge 03/09/2023 Remains medically stable without any acute distress Globin is 8.6 as of 03/09/2023 BUN and creatinine are 29/1.74 with some improvement Will be discharged home on oral torsemide as recommended PAF CAD Stable Angina Pt with chest pain, last episode on 03/04 Cardiology consulted- -recommending paracentesis for symptomatic relief of pt's chest pain. (Pt s/p diagnostic and therapeutic paracentesis on 03/04- 5L of fluids removed, pt notes marked improvement in his symptoms. Appreciate radiology assistance over the weekend) -Increased IV lasix for aggressive diuresis, added spironolactone, Jardiance -continue home Imdur and metoprolol Denies any more chest pain Hypotension Multifactorial including cirrhosis with ascites and pt with acute GI bleed Continue midodrine- dose increased to 10mg TID Continue to monitor Appreciate cardiology and nephrology recs Blood pressure has been more than 90 systolic Acute renal failure Cr elevated above baseline Multifactorial but likely due to low effective arterial volume in setting of worsening ascites and poor PO intake. Hold home losartan and spironolactone Cr has been improving Appreciate nephrology recs-creatinine is 1.74 and that is stable Hyperkalemia Patient with K about 5 per outpatient record review. 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 While admitted, cont basal/bolus insulin. Nutrition recommending not resuming home ozempic on d/c Hypothyroidism Recent TSH on 02/22 is 14.90. Recently increased Synthroid to 225mcg by PCP. Cont current dose PCP to adjust as outpatient PAF (paroxysmal atrial fibrillation) on lifelong AC, no bleeding issues reported Holding apixaban in setting of anemia requiring transfusion noted above Malnutrition poor PO intake for 3 months. Nutrition consulted. Nutrition recommending not resuming home ozempic on d/c Diet: low sodium, low potassium, DMII, fluid restriction of 1500ml DVT prophylaxis: Holding home eliquis in setting of anemia requiring transfusion Full Code as confirmed with patient on admission. Will be discharged home this afternoon Total Time Total Time Spent Total Time Spent (In Minutes): 35 minutes Discharge Plan Discharge Items Patient Disposition: Home - Self-Care Reason For Visit: HYPERKALEMIA, ACUTE RENAL FAILURE, HYPONATREMIA, D Discharge Diagnosis: Alcoholic cirrhosis of liver with ascites, status post paracentesis, acute blood loss anemia, PAF Condition on Discharge: Fair Activity: Resume your previous activity Non-emergency contact: Primary Care Provider Call non-emergency contact if: you have any medication questions and your symptoms worsen Follow-up/Referrals: Juan J Garcia MD [Primary Care Provider] - 03/15/23 11:00 am (Your appointment is with Dr. Gracia) Diet: Carb Consistent or DM2 and Low Sodium (2gm) Fluids: 1500ml (6 cups) Addtl Attending Provider Instructions: Please take precautions to avoid falls Please take your medications as advised Fluid restriction to 1500 mL as mentioned above Please keep appointments with healthcare providers Pending Studies at Discharge: No Stand-Alone Forms: My [facility] [employer], Smoking Cessation Medications and DC Order Prescriptions: New spironolactone 25 mg Tablet 25 mg PO QAM Qty: 30 0RF Jardiance 10 mg Tablet 10 mg PO DAILY Qty: 30 0RF midodrine 10 mg Tablet 10 mg PO TID@0800,1200,1700 Qty: 90 0RF Continued One-A-Day Men's Multivitamin 400-20-300 mcg Tablet 1 tab PO QPM Patient Comments: 1200 atorvastatin 80 mg Tablet 80 mg PO QPM acetaminophen [Tylenol] 325 mg Tablet 325 mg PO Q6H PRN (Reason: Pain) metoprolol succinate 100 mg Tablet Extended Release 24 Hr 100 mg PO QAM metformin 850 mg Tablet 850 mg PO BID diphenoxylate-atropine [Lomotil] 2.5-0.025 mg Tablet 1 tab PO QID PRN (Reason: Diarrhea) aspirin [Sharita Low Dose Aspirin] 81 mg Tablet,Delayed Release (Dr/Ec) 81 mg PO QAM triamcinolone acetonide 0.1 % Cream 1 applic TOPICAL BID PRN (Reason: Rash) amoxicillin 500 mg Tablet 2,000 mg PO UD PRN (Reason: prior to dental procedures) tamsulosin 0.4 mg Capsule 0.4 mg PO HS hydrocodone-acetaminophen 7.5-325 mg Tablet 1 tab PO Q8H PRN (Reason: Pain) nitroglycerin 0.4 mg Tablet, Sublingual 0.4 mg sublingual UD PRN (Reason: Angina) ferrous sulfate 325 mg (65 mg iron) Tablet,Delayed Release (Dr/Ec) 325 mg PO BID magnesium oxide 400 mg magnesium Tablet 800 mg PO BID famotidine [Pepcid] 20 mg Tablet 20 mg PO BID ondansetron 8 mg Tablet,Disintegrating 8 mg PO Q12H PRN (Reason: Nausea) isosorbide mononitrate 60 mg Tablet Extended Release 24 Hr 60 mg PO QAM glipizide 10 mg tablet extended release 24hr 20 mg PO DAILY pantoprazole 40 mg tablet,delayed release (DR/EC) 40 mg PO QAM levothyroxine 200 mcg tablet 200 mcg PO QAM albuterol sulfate [Proventil HFA] 90 mcg/actuation Hfa Aerosol Inhaler 2 puff INHALATION TID metoclopramide HCl 10 mg tablet 10 mg PO DAILY Ozempic 1 mg/dose (4 mg/3 mL) pen injector 1 mg SUBCUT .Q WED torsemide 20 mg tablet 40 mg PO DAILY Patient Comments: has not yet started this levothyroxine 25 mcg tablet 25 mcg PO DAILYBB Discontinued furosemide 20 mg Tablet 20 mg PO QAM Eliquis 5 mg Tablet 2.5 mg PO BID losartan 25 mg tablet 25 mg PO DAILY spironolactone 50 mg tablet 50 mg PO QAM Discharge Orders: Discharge Order (Routine); Ordered 03/09/23 Ordered By: Boris Keene/Other Patient Handouts: Cirrhosis of Liver Dc, Hyperkalemia Dc, Low Salt Diet Dc, Limiting Fluids Dc Admission Data Admit Date/Time: 03/01/23 15:21 Attending Provider: Boris Silva Admit Provider: Clara Valencia Primary Care Provider: Juan J Garcia Other Providers: Lizbeth Martinez; Clara Valencia; Josefina Franco; [facility]; Huang Kumar; [id number],[facility] Other Interventions: Discharge Summary Assessment (RN) Last Done: 03/09/23 14:10
== END 2023-03-09 16:50 | disposition home health service (06) | DRG 432 ==
LOC: ED 11:47 → SUATTDRO 15:21 → 2S 15:21